=== PATIENT | female | born 1970 | race Caucasian/White ===

== ENCOUNTER 2022-04-19 10:44 | Day surgery (SDC) | payer BC, SELFPAY ==
[2022-04-19 11:16] VITALS: BMI 32.9
[2022-04-19 11:19] VITALS: BP 130/82; PULSE 88; RESP 16; TEMP 36.4; O2SAT 99
[2022-04-19] MEDS: LACTATED RINGERS 1000 ML 1,000 ML 100 ML IV ×2 (11:30→13:18)
[2022-04-19] MEDS: SODIUM CHLORIDE 0.9 % (FLUSH) 10 ML SYRINGE IVF (12:00)
--- NOTE | 2022-04-19 12:00 | CRLHL7_ITS ---
For Patients: As a result of the Cures Act, medical imaging exams and procedure reports are released immediately into your electronic medical record. You may view this report before your referring provider. If you have questions, please contact your health care provider. Indication: MPJ fusion, Hammertoe repair, Osteotomy Technique: One fluoroscopic image of the left foot. Fluoroscopic time 11.5 seconds. IMPRESSION: Fluoroscopic guidance for 2nd hammertoe correction, 1st MTP fusion and surgery to the 2nd metatarsal head. Dictated by Luis Conley MD @ 04/20/2022 8:33:18 AM (Electronically Signed)
[2022-04-19 12:01] LABS: SARS Antigen* negative (Negative)
[2022-04-19] MEDS: BUPIVACAINE 0.5% 30 ML INJECTION (12:59)
[2022-04-19] MEDS: CEFAZOLIN 2 GM INJ IVP (13:00)
[2022-04-19] MEDS: BUPIVACAINE 0.5% 30 ML 4 ML INJECTION (13:20)
[2022-04-19 14:56] VITALS: BP 138/110; PULSE 81; RESP 16; TEMP 36.2; O2SAT 97
--- NOTE | 2022-04-19 14:56 | P.GSOP_ITS ---
Operative Note Date of procedure: 04/19/22 Type of Procedure: 1. First MPJ fusion left 2. Cyndee osteotomy 2nd metatarsal left 3. Hammertoe correction 2nd digit left Procedure Description: Preoperative diagnosis: 1. Hallux rigidus left foot 2. Hammertoe 2nd digit foot left 3. Metatarsalgia 2nd left Postoperative diagnosis: 1. Hallux rigidus left foot 2. Hammertoe 2nd digit foot left 3. Metatarsalgia 2nd left Procedure: 1. First MPJ fusion left 2. Cyndee osteotomy 2nd metatarsal left 3. Hammertoe correction 2nd digit left After discussing the risks and benefits of the procedure, the patient signed informed consent.? The operative site was marked and the patient was brought to the operating room and placed on the operating table in supine position.? Care was taken to pad the patient's pressure points.?? The patient was then given sedation by anesthesia and 30 mL 0.5% Marcaine plain were injected into the left foot.?? The operative site was then prepped and draped in the usual sterile fashion.? A time-out was then performed. Left foot was exsanguinated and the ankle tourniquet inflated to 250 mm Hg. Linear incision was made over the 1st metatarsophalangeal joint left foot. Incision was carried down through skin subcutaneous tissues. Linear capsular incision made in the capsule and periosteum reflected away from the head of the 1st metatarsal base of proximal phalanx. Near complete erosion of the cartilage was noted to the 1st MPJ rongeur was used to remove bony spurring from around the joint. Guide pin was placed in the 1st metatarsal head an 18 mm Reamer was used to remove remaining cartilage and subchondral bone. Guide pin was removed and placed in the base of the proximal phalanx the corresponding 18 mm Reamer was used to remove remaining cartilage and subchondral bone. The area was thor oughly irrigated normal sterile saline. Opposing fusion surfaces were fenestrated with K-wires. Simulated weight-bearing performed with a instrument tray lid and the hallux positioned appropriately. This was stabilized with a K- wire and position checked with C-arm and found to be optimal. A guide pin followed by 3.0 cannulated headless screw was placed from distal medial to proximal lateral across the fusion site. Excellent compression noted across the fusion. Dorsal plate was then applied and fixated with five 3.0 mm locking screws and 1 3.0 mm nonlocking screw. Fusion site was remodeled with a rotary bur. Multiple C-arm images confirmed excellent position. Redundant and inflamed capsular tissue was excised and then closed with 3-0 Vicryl. Subcutaneous tissues reapproximated 4-0 Monocryl and skin closed with 4-0 Prolene. Linear incisions made over the 2nd metatarsophalangeal joint. Incision was carried down through skin subcutaneous tissues. Transverse incision was made t hrough the extensor tendon and joint capsule. Linear incision was made through the capsule dorsally and capsular tissue reflected away from the 2nd metatarsal head. Sagittal saw was then used to make a Cyndee osteotomy in the 2nd metatarsal head. Capital fragment was transposed proximally 3 mm and fixated with a 3.0 mm twist off screw. Excellent compression across the osteotomy noted. Dorsal ov erhang was removed with a rongeur. The wound thoroughly irrigated with normal sterile saline. The joint capsule was repaired with 4-0 Vicryl. Subcutaneous tissues reapproximated 4-0 Monocryl and the skin closed 4-0 Prolene. Linear incision made over the PIPJ 2nd digit. Incision was taken down through skin subcutaneous tissues. Transverse incision made through the extensor tendon and joint capsule. Medial and lateral collateral ligaments were released. Cartilage and subchondral bone was then removed with a oscillating saw from the proximal phalangeal head as well as from the base of the middle phalanx. An Arthrex Dynite hammertoe implant was then placed using standard technique. Excellent compression and fixation across the PIPJ fusion. Position was found to be excellent clinically and with C-arm. We thoroughly irrigated normal sterile saline. Excess extensor tendon was excised with tenotomy scissors and repaired with 4-0 Vicryl. Skin closed with 4-0 Prolene. ? Sterile dressings were then applied. A well-padded cam boot placed. Tourniquet was released and normal cap refill time returned to all digits left foot. The patient was then woken and transported to the recovery area in stable condition. The patient tolerated the procedure well. Both written and verbal postop instructions given. Weightbearing as tolerated to the heel in the cam boot crutches for transfers. She is given oxycodone for pain. She will follow up in clinic in 3 days time. Findings: Complications: None apparent Implants: Arthrex 1st MPJ fusion plate x1, Arthrex 3.0 cannulated headless screw x1, Arthrex 3.0 mm locking screws x5 and nonlocking screw x1, Arthrex Dynite hammertoe implant x1. Anesthesia: MAC and local Surgeon: Nishant Colon DPM Estimated blood loss (mL): 5 Condition: stable Disposition: same day
--- NOTE | 2022-04-19 15:00 | W.ANESCHARGE ---
Anesthesia Charges Start Date/Time Anesthesia Start Date: 04/19/22 Anesthesia Start Time: 12:51 Stop Date/Time Anesthesia Stop Time: 15:00 Summary Emergency: No
[2022-04-19 15:04] VITALS: BP 125/73; PULSE 81; RESP 16; O2SAT 97
[2022-04-19 15:28] VITALS: BP 138/75; PULSE 75; RESP 16; O2SAT 98
--- NOTE | 2022-04-19 15:44 | W.ANESCHARGE ---
Anesthesia Charges Start Date/Time Anesthesia Start Date: 04/19/22 Anesthesia Start Time: 12:51 Stop Date/Time Anesthesia Stop Date: 04/19/22 Anesthesia Stop Time: 15:00 Summary Emergency: No
== END 2022-04-19 16:07 | disposition home or self-care (01) ==
PROVIDERS: PCP Physician Assistant; Visit Provider Podiatrist
PROC: (CPT 28740; principal; 2022-04-19 12:00)
PROC: (CPT 28285; 2022-04-19 12:00)
DX: M20.22 Hallux rigidus, left foot (principal); M20.42 Other hammer toe(s) (acquired), left foot; M77.42 Metatarsalgia, left foot
CPT/HCPCS: 28750; 28285; 28308; 1462; 1480; 73620; 76000; 87426; 97116; 97161; A4580; C1713; J0690; J1100; J1885; J2250; J2405; J2704; J3010; J3490; J7120

== ENCOUNTER 2023-04-18 09:22 | Day surgery (SDC) | payer BC, SELFPAY ==
[2023-04-18] VITALS (7 sets, daily range): BP systolic 133–155; BP diastolic 81–106; PULSE 63–72; RESP 16; TEMP 36.3–36.6; O2SAT 93–98; BMI 36.6
[2023-04-18] MEDS: SODIUM CHLORIDE 0.9 % (FLUSH) 10 ML SYRINGE IVF (09:45)
[2023-04-18] MEDS: LACTATED RINGERS 1000 ML 1,000 ML 100 ML IV (09:45)
[2023-04-18] MEDS: BUPIVACAINE 0.5% 30 ML INJECTION (10:09)
--- NOTE | 2023-04-18 10:23 | SUR.OPER ---
PATIENT QUESTIONS ANSWERED SATISFACTORILY PREOPERATIVELY.? PATIENT BROUGHT TO OR #1 PER CART.? Patient positioned supine on OR #1 bed.? The perioperative?team supported arms bilaterally on arm boards.? Final approval of positioning by surgeon.
--- NOTE | 2023-04-18 10:30 | CRLHL7_ITS ---
For Patients: As a result of the Cures Act, medical imaging exams and procedure reports are released immediately into your electronic medical record. You may view this report before your referring provider. If you have questions, please contact your health care provider. INDICATION: Right 1st MTP fusion. Hammertoe correction. TECHNIQUE: Fluoroscopically guided intraoperative evaluation. FINDINGS: Three portable spot intraoperative images of the right 1st and 2nd toes. FINDINGS: 16.2 seconds fluoroscopy time utilized. Postsurgical change from hammertoe correction of the right 2nd toe with a fusion device bridging the interphalangeal joint of the right 2nd toe. There are also postsurgical changes from right 1st MTP joint fusion with a metallic plate and a metallic screw. IMPRESSION: Postsurgical changes as described. 16.2 seconds fluoroscopy time utilized. Dictated by Andre Denton MD @ 04/18/2023 6:03:31 PM (Electronically Signed)
--- NOTE | 2023-04-18 11:56 | W.ANESCHARGE ---
Anesthesia Charges Start Date/Time Anesthesia Start Date: 04/18/23 Anesthesia Start Time: 10:02 Stop Date/Time Anesthesia Stop Date: 04/18/23 Anesthesia Stop Time: 11:54
--- NOTE | 2023-04-18 12:01 | P.PCN_ITS ---
Procedure Note Date Seen: 04/18/23 Date of procedure: 04/18/23 Will [facility] bill your pro fee for this procedure?: No Pre-op diagnosis: 1. Hallux abducto valgus with bunion right 2. Hammertoe 2nd digit right Post-op diagnosis: same Procedure: 1. First MPJ fusion right foot 2. Hammertoe repair via PIPJ arthrodesis 2nd right Procedure Description: Hemostasis: Ankle tourniquet at 250 mm Hg Materials: 3.0 cannulated headless screw x1, Arthrex 1st MPJ fusion plate x1, 3.0 mm locking screws times 4 and 3.0 mm nonlocking screw x1, Dynite hammertoe implant x1 Complications: None apparent Indication for surgery: Patient has had ongoing pain to her great toe joint. She is concerned the 2nd toe is going to progress to a more worsened hammertoe similar to her other foot. She has elected surgical correction. Reviewed the procedure, recovery, expectations and potential complications. These include but are not limited to: Poor wound healing, infection, continued pain, possible need for future surgery, nonunion, delayed union, malunion, under correction, over correction, deep venous thrombosis, pulmonary embolism and possible . She understands risks written consent was obtained. Site marked. Procedure detail: Patient brought the operating room placed supine position on operating table. IV sedation was initiated local anesthetic injected into the right foot. She was prepped and draped in a sterile fashion. Standard time-out protocol followed. Right foot was exsanguinated the tourniquet inflated. A dorsal incision made over the 1st metatarsophalangeal joint. The incision was carried down through skin subcutaneous tissues. A linear capsular periosteal incision was made over the joint. These tissues reflected away from the 1st metatarsal head proximal phalangeal base. Loose osteophytic bone was noted to the base of the proximal phalanx. Significant loss of cartilage throughout the joint space. Bony spurring was resected with sagittal saw. Guide pin was placed the 1st metatarsal head an 18 mm Reamer was used to remove remaining cartilage and subchondral bone. Guide pin was removed and placed in the base of proximal phalanx and the corresponding 18 mm Reamer was used to remove the cartilage and subchondral bone. Wound was irrigated normal sterile saline. The opposing fusion surfaces were fenestrated with a K-wire. Simulating weight- bearing the great toe was positioned optimally and pinned with a K-wire. C-arm confirmed excellent position. 3.0 cannulated headless screw was then placed from distal medial to proximal lateral across the fusion. Excellent compression noted and excellent purchase of the screw. A dorsal fusion site was remodeled with a rotary bur and a 6 hole plate was applied dorsally. Three locking screws were placed distally and 1 locking screw placed proximally. An additional nonlocking screw placed proximally. All remaining K-wires removed. Rotary bur was used to remodel the 1st metatarsal head and proximal phalangeal base. Wound was thoroughly irrigated normal sterile saline. Joint capsule was debrided and repaired with 3-0 Vicryl. Subcutaneous tissues reapproximated with 4-0 Monocryl and skin closed with 4-0 Prolene. Linear incision was made over the PIPJ is toe right foot. Incision was carried down through skin subcutaneous tissues. Transverse incision made through the extensor tendon and joint capsule. The medial and lateral collateral ligaments were released. Oscillating saw used to resect the head of the proximal phalanx and base of the middle phalanx. A Dynite hammertoe implant was placed using standard technique. Excellent [id number] apposition stable. C-arm confirmed excellent position. Guide wire was advanced to deployed the tines of the implan t and then it was removed. Extensor tendon was repaired with 4-0 Vicryl. Skin repaired with 4-0 Prolene. Sterile dressing was applied. Tourniquet was released and normal capillary fill time returned all digits. She was placed in a well-padded cam boot and transferred from OR to same-day surgery with vital signs stable vascular status intact. To be discharged per same-day surgery. She was given oxycodone for pain. She is to be nonweightbearing. She has follow-up in 3 days. Anesthesia: MAC and local Estimated blood loss (mL): 2 Condition: stable Disposition: same day
[2023-04-18] MEDS: OxyCODONE/APAP 5-325 TABLET PO (12:41)
== END 2023-04-18 13:27 | disposition home or self-care (01) ==
PROVIDERS: PCP Physician Assistant; Visit Provider Podiatrist
PROC: (CPT 28740; principal; 2023-04-18 10:30)
DX: M20.11 Hallux valgus (acquired), right foot (principal); M21.611 Bunion of right foot; M20.41 Other hammer toe(s) (acquired), right foot
CPT/HCPCS: 28750; 28285; 01480; 73620; 76000; A4580; A9270; C1713; J0665; J2250; J2405; J2704; J2930; J3010; J7120

== ENCOUNTER 2023-06-21 09:16 | Outpatient (CLI) | payer BC, SELFPAY ==
--- OUTSIDE RECORDS SUMMARY | 2023-06-21 09:25 | XMS_ITS | Encounter Summary ---
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); Inflammatory arthritis Social History Tobacco Use Types Packs/Day Years Used Date Smoking Tobacco: Never Smokeless Tobacco: Never Alcohol Use Standard Drinks/Week Comments Yes 0 (1 standard drink = 0.6 oz pure alcohol) one beer or glass of wine weekly Sex and Gender Information Value Date Recorded Sex Assigned at Female 10/27/2020 8:46 AM CDT Gender Identity Female 10/27/2020 8:46 AM CDT Sexual Orientation Straight 10/27/2020 8: 46 AM CDT documented as of this encounter Plan of Treatment Upcoming Encounters Date Type Department Care Team (Late st Contact Info) Description 08/03/2023 3:00 PM CDT Appointment [facility] [address] [place], [place] [id number] Tracey Marino MD [facility] [place], [place] [id number] Scheduled Orders Name Type Priority Associated Diagnoses Orde r Schedule TP/Crea Ratio, Urine Lab Routine Other systemic lupus erythematosus with other organ involvement (HRC) 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) Inflammatory arthritis Expected: 03/31/2023, Expires: 06/29/2023 Urinalysis Routine, Micro/Culture if Pos: Clean Catch Lab Routine Other systemic lupus erythematosus with other organ involvement (HRC) 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) Inflammatory arthritis Expected: 03/31/2023, Expires: 06/29/2023 documented as of this encounter Procedures Procedure Name Priority Date/Time Associated Diagnosis Comments CBC AND DIFFERENTIAL PANEL Routine 03/31/2023 4:46 PM [facility] Other systemic lupus erythematosus with other organ involvement (HRC) 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) ANTI-DS DNA ANTIBODY (BRITANY ASSAY) Routine 03/31/2023 4:46 PM [facility] Inflammatory arthritis Other systemic lupus erythematosus with other organ involvement (HRC) COMPLETE BLOOD COUNT-W/DIFF Routine 03/31/2023 4:46 PM [facility] Other systemic lupus erythematosus with other organ involvement (HRC) 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) LIVER PANEL(HEPATIC FUNCTION PANEL) Routine 03/31/2023 4:46 PM [facility] Other systemic lupus erythematosus with other organ involvement (HRC) BASIC METABOLIC PANEL Routine 03/31/2023 4:46 PM [facility] Inflammatory arthritis Other systemic lupus erythematosus with other organ involvement (HRC) C4 COMPLEMENT Routine 03/31/2023 4:46 PM [facility] Inflammatory arthritis Other systemic lupus erythematosus with other organ involvement (HRC) C3 COMPLEMENT Routine 03/31/2023 4:46 PM [facility] Inflammatory arthritis Other systemic lupus erythematosus with other organ involvement (HRC) C-REACTIVE PROTEIN Routine 03/31/2023 4: 46 PM [facility] Inflammatory arthritis Other systemic lupus erythematosus with other organ involvement (HRC) ESR Routine 03/31/2023 4:46 PM [facility] Inflammatory arthritis Other systemic lupus erythematosus with other organ involvement (HRC) documented in this encounter Results * (ABNORMAL) Complete Blood Count-W/Diff (03/31/2023 4:46 PM [facility]) WBC 3.8 3.5 - 10.5 x10(9)/L 03/31/2023 4:50 PM [facility] RBC 3.93 3.90 - 5.03 x10(12)/L 03/31/2023 4:50 PM [facility] Hemoglobin 12.3 12.0 - 15.5 g/dL 03/31/2023 4:50 PM [facility] HCT 36.9 34.9 - 44.5 % 03/31/2023 4:50 PM [facility] MCV 93.9 80.0 - 100.0 fL 03/31/2023 4:50 PM [facility] MCH 31.3 27.6 - 33.3 pg 03/31/2023 4:50 PM [facility] MCHC 33.3 31.5 - 35.2 g/dL 03/31/2023 4:50 PM [facility] RDW 13.7 11.9 - 15.5 % 03/31/2023 4:50 PM [facility] Platelets 151 150 - 450 x10(9)/L 03/31/2023 4:50 PM [facility] Automated NRBC 0 <=0 /100 WBC 03/31/2023 4:50 PM [facility] Neutrophil Absolute 2.4 1.7 - 7.0 10(9)/L 03/31/2023 4:50 PM [facility] Lymphocyte Absolute 0.9(L) 1.0 - 4.8 10(9)/L 03/31/2023 4:50 PM [facility] Monocyte Absolute 0.4 0.2 - 0.9 10(9)/L 03/31/2023 4:50 PM [facility] Eosinophil Absolute 0.0 0.0 - 0.5 10(9)/L 03/31/2023 4:50 PM [facility] Basophil Absolute 0.1 0.0 - 0.3 10(9)/L 03/31/2023 4:50 PM [facility] Immature Granulocyte % 0.3 0.0 - 0.5 % 03/31/2023 4:50 PM [facility] Blood Venipuncture / Unknown 03/31/2023 4:46 PM [facility] 03/31/2023 4:46 PM [facility] Tracey Marino MD LAB_1 Performing Organization Address [facility] de Phone Number [facility] [address] [place] [phone], [facility] [phone] * C-Reactive Protein (03/31/2023 4:46 PM [facility]) Pathologist [facility] C-Reactive Protein <0.5 0.0 - 0.5 mg/dL 03/31/2023 6:54 PM [facility] Blood Venipuncture / Unknown 03/31/2023 4:46 PM [facility] 03/31/2023 4:46 PM [facility] Tracey Marino MD LAB_1 Performing Organization Address [facility] Phone Number [facility] [address] [place] [address], [facility] [phone] * ESR (03/31/2023 4:46 PM [facility]) Pathologist [facility] Sedimentation Rate 7 0 - 20 mm/hr 03/31/2023 5:29 PM [facility] Blood Venipuncture / Unknown 03/31/2023 4:46 PM [facility] 03/31/2023 4:46 PM [facility] Tracey Marino MD LAB_1 Performing Organization Address [facility] de Phone Number [facility] [address] [place] [phone], [facility] [phone] * Basic Metabolic Panel (03/31/2023 4:46 PM [facility]) Sodium 141 136 - 145 mmol/L 03/31/2023 6:54 PM [facility] Potassium 3.5 3.5 - 5.1 mmol/L 03/31/2023 6:54 PM [facility] Chloride 107 98 - 109 mmol/L 03/31/2023 6:54 PM [facility] CO2 27 20 - 29 mmol/L 03/31/2023 6:54 PM [facility] Anion Gap 7 7 - 16 mmol/L 03/31/2023 6:54 PM [facility] Calcium 8.6 8.4 - 10.4 mg/dL 03/31/2023 6:54 PM [facility] BUN 10 7 - 26 mg/dL 03/31/2023 6:54 PM [facility] Creatinine 0.90 0.55 - 1.02 mg/dL 03/31/2023 6:54 PM [facility] Glucose 93 70 - 100 mg/dL 03/31/2023 6:54 PM [facility] Comment:The given reference range is for the fasting state. Non-fasting reference range for glucose is 70 - 180 mg/dL. GFR, Estimated >60 >60 mL/min/1.7 3m2 03/31/2023 6:54 PM [facility] Hours Fasting 0.1 8 - 12 Hours 03/31/2023 6:54 PM [facility] Comment:Lab unable to obtain patient's fasting status at time of specimen collection. Blood Venipuncture / Unknown 03/31/2023 4:46 PM [facility] 03/31/2023 4:46 PM [facility] Tracey Marino MD LAB_1 [facility] [address] [place] [address], [facility] [phone] * C4 Complement (03/31/2023 4:46 PM [facility]) C4 Complement 23.0 15.0 - 57.0 mg/dL 03/31/2023 9:41 PM [facility] Blood Venipuncture / Unknown 03/31/2023 4:46 PM [facility] 03/31/2023 4:46 PM [facility] Tracey Marino MD LAB_1 Performing Organization Address [facility] Co de Phone Number [facility] [address] * C3 Complement (03/31/2023 4:46 PM [facility]) Pathologist [facility] C3 Complement 97 83 - 193 mg/dL 03/31/2023 9:41 PM [facility] Blood Venipuncture / Unknown 03/31/2023 4:46 PM [facility] 03/31/2023 4:46 PM [facility] Tracey Marino MD LAB_1 Performing Organization Address [facility] de Phone Number [facility] [address] * DNA Double Stranded Antibody (Britany) (03/31/2023 4:46 PM [facility]) [facility] Anti-dsDNA Ab (Britany Assay) <8.0 <8.0 IU/mL 04/07/2023 12:06 AM [facility] Blood Venipuncture / Unknown 03/31/2023 4:46 PM [facility] 03/31/2023 4:46 PM [facility] Narrative [facility] - 04/07/2023 12:06 AM [facility] Test(s) [id number] Ab by Britany(RDL) was developed and its performance characteristics determined by [facility]. It has not been cleared or approved by the Food and Drug Administration. Performed at: ??01 - [facility] [address] [place] [address] ??[id number] Director Of Staff Development: Puneet French MD, Phone: ??[phone] Tracey Marino MD LAB_1 Performing Organization Address [facility] Co de Phone Number [facility] [address] [address] [place] [address] * (ABNORMAL) Liver Panel(Hepatic Function Panel) (03/31/2023 4:46 PM [facility]ERTER) Pathologist [facility] Alkaline Phosphatase 117 40 - 150 U/L 03/31/2023 6:54 PM [facility] Bilirubin, Total 1.4(H) 0.2 - 1.2 mg/dL 03/31/2023 6:54 PM [facility] Bilirubin, Direct 0.5 0.0 - 0.5 mg/dL 03/31/2023 6:54 PM [facility] AST (SGOT) 37 10 - 40 U/L 03/31/2023 6:54 PM [facility] ALT (SGPT) 32 <=55 U/L 03/31/2023 6:54 PM [facility] Protein, Total 6.4 6.4 - 8.3 g/dL 03/31/2023 6:54 PM [facility] Albumin 3.7 3.5 - 5.0 g/dL 03/31/2023 6:54 PM [facility] Blood Venipuncture / Unknown 03/31/2023 4:46 PM [facility] 03/31/2023 4:46 PM [facility] Tracey Marino MD LAB_1 [facility] [address] [place] [address], [facility] [phone] documented in this encounter Visit Diagnoses Diagnosis Other systemic lupus erythematosus with other organ involvement (HRC) 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
--- OUTSIDE RECORDS SUMMARY | 2023-06-21 09:25 | XMS_ITS | Encounter Summary ---
Author Name Unknown Organization [facility] Address [address], [place] [address] Care Team Providers Care Financial Reporting Advisor Name Role Phone Joyce Wilson MD Primary Care Provider [phone] Encounter Details Date Type Department Care Team (Late Contact Info) Description 12/02/2022 Notes/Orders [facility] [address] [place] [address] Tracey Marino MD [address] [place], [place] [address] Other systemic lupus erythematosus with other organ involvement (HRC) (Primary Dx) Social History Tobacco Use Types Packs/Day Years [...] Encounters Date Type Department Care Team (Late Contact Info) Description 08/03/2023 3:00 PM CDT Appointment [facility] [address] [place] [address] Thottam, Tracey E, MD [address] [place] [address] documented as of this encounter Results * (ABNORMAL) Liver Panel(Hepatic Function Panel) (03/31/2023 4:46 PM [facility]TER TENDER JELLY) Alkaline Phosphatase 117 40 - 150 U/L 03/31/2023 6:[address] [facility] Bilirubin, Total 1.4(H) 0.2 - 1.2 mg/dL 03/31/2023 6:[address] [facility] Bilirubin, Direct 0.5 0.0 - 0.5 mg/dL 03/31/2023 6:[address] [facility] AST (SGOT) 37 10 - 40 U/L 03/31/2023 6:[address] [facility] ALT (SGPT) 32 <=55 U/L 03/31/2023 6:[address] [facility] Protein, Total 6.4 6.4 - 8.3 g/dL 03/31/2023 6:[address] [facility] Albumin 3.7 3.5 - 5.0 g/dL 03/31/2023 6:[address] [facility] Blood Venipuncture / Unknown 03/31/2023 4:46 PM [facility] T[employer]ER JELLY 03/31/2023 4:46 PM [facility] T[employer] JELLY Tracey Marino MD LAB_1 [facility] [address] [place] [address], [facility] [phone] documented in this encounter Visit Diagnoses Diagnosis Other systemic lupus erythematosus with other organ involvement (HRC)- Primary documented in this encounter Care Teams Financial Reporting Advisor Relationship Specialty Start Date End Date Joyce Wilson MD [address] [place] [address] ANTWAN GERARDO [address] PCP - General 06/08/13 documented as of this encounter
--- OUTSIDE RECORDS SUMMARY | 2023-06-21 09:25 | XMS_ITS | Encounter Summary ---
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) Social History Tobacco Use Types Packs/Day Years [...] Info) Description 08/03/2023 3:00 PM CDT Appointment [facility] [address] [place], [place] [phone] Tracey Marino MD [address] [place] [phone] documented as of this encounter Procedures Procedure Name Priority Date/Time Associated Diagnosis Comments CBC AND DIFFERENTIAL PANEL Routine 11/25/2022 3:47 PM CDT Other systemic lupus erythematosus with other organ involvement (HRC) 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) CREATININE / GFR Routine 11/25/2022 3:47 PM CDT Other systemic lupus erythematosus with other organ involvement (HRC) COMPLETE BLOOD COUNT-W/DIFF Routine 11/25/2022 3:47 PM CDT Other systemic lupus erythematosus with other organ involvement (HRC) 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) ALT (SGPT) Routine 11/25/2022 3:47 PM CDT Other systemic lupus erythematosus with other organ involvement (HRC) 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) AST Routine 11/25/2022 3:47 PM CDT Other systemic lupus erythematosus with other organ involvement (HRC) 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) documented in this encounter Results * (ABNORMAL) Complete Blood Count-W/Diff (11/25/2022 3:47 PM CDT) WBC 5.1 3.5 - 10.5 x10(9)/L 11/25/2022 3:50 PM CDT [facility] RBC 3.86(L) 3.90 - 5.03 x10(12)/L 11/25/2022 3:50 PM CDT [facility] Hemoglobin 12.4 12.0 - 15.5 g/dL 11/25/2022 3:50 PM CDT [facility] HCT 37.7 34.9 - 44.5 % 11/25/2022 3:50 PM CDT [facility] MCV 97.7 80.0 - 100.0 fL 11/25/2022 3:50 PM CDT [facility] MCH 32.1 27.6 - 33.3 pg 11/25/2022 3:50 PM CDT [facility] MCHC 32.9 31.5 - 35.2 g/dL 11/25/2022 3:50 PM CDT [facility] RDW 13.9 11.9 - 15.5 % 11/25/2022 3:50 PM T [facility] Platelets 121(L) 150 - 450 x10(9)/L 11/25/2022 3:50 PM [facility] Automated NRBC 0 <=0 /100 WBC 11/25/2022 3:50 PM [facility] Neutrophil Absolute 4.0 1.7 - 7.0 10(9)/L 11/25/2022 3:50 PM T [facility] Lymphocyte Absolute 0.6(L) 1.0 - 4.8 10(9)/L 11/25/2022 3:50 PM T [facility] Monocyte Absolute 0.4 0.2 - 0.9 10(9)/L 11/25/2022 3:50 PM T [facility] Eosinophil Absolute 0.0 0.0 - 0.5 10(9)/L 11/25/2022 3:50 PM [facility] Basophil Absolute 0.0 0.0 - 0.3 10(9)/L 11/25/2022 3:50 PM [facility] Immature Granulocyte % 0.2 0.0 - 0.5 % 11/25/2022 3:50 PM [facility] Blood Venipuncture / Unknown 11/25/2022 3:47 PM CDT 11/25/2022 3:47 PM CDT Tracey Marino MD LAB_1 [facility] [address] [place] [address], [facility] [phone] * Creatinine / GFR (every 3 months) (11/25/2022 3:47 PM CDT) Creatinine 1.00 0.55 - 1.02 mg/dL 11/25/2022 6:15 PM CDT [facility] GFR, Estimated >60 >60 mL/min/1.7 3m2 11/25/2022 6:15 PM T [facility] Blood Venipuncture / Unknown 11/25/2022 3:47 PM CDT 11/25/2022 3:47 PM CDT Tracey Marino MD LAB_1 Performing Organization Address [facility] de Phone Number [facility] [address] [place] [phone], [facility] [phone] * (ABNORMAL) AST (every 3 months) (11/25/2022 3:47 PM CDT) AST (SGOT) 43(H) 10 - 40 U/L 11/25/2022 6:15 PM CDT [facility] Blood Venipuncture / Unknown 11/25/2022 3:47 PM CDT 11/25/2022 3:47 PM CDT Tracey Marino MD LAB_1 Performing Organization Address [facility] de Phone Number [facility] [id number] [place] [phone], [facility] [phone] * ALT (SGPT) (every 3 months) (11/25/2022 3:47 PM CDT) ALT (SGPT) 36 <=55 U/L 11/25/2022 6:15 PM CDT [facility] Blood Venipuncture / Unknown 11/25/2022 3:47 PM CDT 11/25/2022 3:47 PM CDT Tracey Marino MD LAB_1 Performing Organization Address 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
--- OUTSIDE RECORDS SUMMARY | 2023-06-21 09:25 | XMS_ITS | Encounter Summary ---
Author Name Unknown Organization [facility] Address [address], [place] [address] Care Team Providers Care Life Skills Consultant Name Role Phone Joyce Wilson MD Primary Care Provider [phone] Reason for Visit * Reason Comments Refill Encounter Details Date Type Department Care Team (Late st Contact Info) Description 03/14/2023 Refill [facility] [address] [place], [place] [address] Tracey Brown MD [address] [place] [address] Refill Social History Tobacco Use Types Packs/Day Years [...] AM CDT documented as of this encounter Nursing Notes * Sirena Worrell RN - 03/14/2023 11:49 AM CST LV: 11/25/22 [place]: 03/31/23 Lab Results Component Value Date WBC 5.1 11/25/2022 RBC 3.86 (L) 11/25/2022 Hemoglobin 12.4 11/25/2022 HCT 37.7 11/25/2022 MCV 97.7 11/25/2022 RDW 13.9 11/25/2022 Platelets 121 (L) 11/25/2022 Lab Results Component Value Date ALT (SGPT) 36 11/25/2022 Lab Results Component Value Date Creatinine 1.00 11/25/2022 Renewed medication per medication refill standing order. Requested Prescriptions Signed Prescriptions Disp Refills leflunomide (ARAVA) 20 MG tablet 30 Tablet 0 Sig: TAKE ONE TABLET BY MOUTH EVERY DAY Authorizing Provider: TRACEY BROWN Ordering User: SIRENA WORRELL UCT SAFETY TESTER documented in this encounter Plan of Treatment Upcoming Encounters Date Type Department Care Team (Late st Contact Info) Description 08/03/2023 3:00 PM CDT Appointment [facility] [address] [place] [address] Tracey Brown MD [address] [place] [address] documented as of this encounter Visit Diagnoses Diagnosis Inflammatory arthritis Unspecified inflammatory polyarthropathy Other systemic lupus erythematosus with other organ involvement (HRC) documented in this encounter Care Teams Life Skills Consultant Relationship Specialty Start Date End Date Joyce Wilson MD [address] [place] [address] PCP - General 06/08/13 documented as of this encounter
--- OUTSIDE RECORDS SUMMARY | 2023-06-21 09:25 | XMS_ITS | Encounter Summary ---
Author Name Unknown Organization [facility] Address [address], [place] [address] Care Team Providers Care Project Management Manager Name Role Phone Joyce Wilson MD Primary Care Provider [phone] Reason for Visit * Reason Comments Refill Encounter Details Date Type Department Care Team (Late st Contact Info) Description 05/02/2023 Refill [facility] [address] [place], [place] [phone] Tracey Brown MD [address] [place] [address] Refill Social History Tobacco Use Types [...] as of this encounter Nursing Notes * Ree Martin RN - 05/03/2023 4:11 PM CST Last visit: 03/31/23 Future visit: 08/02/22 Lab Results Component Value Date Hemoglobin 12.3 03/31/2023 Lab Results Component Value Date Creatinine 0.90 03/31/2023 Renewed medication per medication refill standing order. Requested Prescriptions Signed Prescriptions Disp Refills celecoxib (CELEBREX) 100 MG capsule 60 Capsule 1 Sig: TAKE ONE CAPSULE BY MOUTH TWICE A DAY Authorizing Provider: TRACEY BROWN Ordering User: REE MARTIN ICAL THERAPIST documented in this encounter Plan of Treatment Upcoming Encounters Date Type Department Care Team (Late st Contact Info) Description 08/03/2023 3:00 PM CDT Appointment [facility] [address] [place], [place] [phone] Tracey Brown MD [address] [place] [phone] documented as of this encounter Visit Diagnoses Not on filedocumented in this encounter Care Teams Project Management Manager Relationship Specialty Start Date End Date Joyce Wilson MD [address] [place] [address] PCP - General 06/08/13 documented as of this encounter
--- OUTSIDE RECORDS SUMMARY | 2023-06-21 09:25 | XMS_ITS | Clinical Summary ---
Author Name Unknown Organization [facility] Address [address], [place] [address] Care Team Providers Care Power Electronics Research Engineer Name Role Phone Joyce Wilson MD Primary Care Provider [phone] Source Comments You are receiving this document as you are listed as the primary care provider,follow-up provider, or the patient has been referred to you for consultation.This is in compliance with the Medicare and[facility] EHR Incentive Program,which states Providers who transition their patient to another setting of careor provider of care or refers their patient to another provider of care shouldprovide summary care record for each transition of care or referral. [facility] Allergies No known active allergies Medications Medication Sig Dispensed Refills Start Date End Date Status Carboxymethylcellulos e Sodium (REFRESH LIQUIGEL OP) Place 1 drop into both eyes 4 times daily as needed (Use 3-4 times daily). 08/16/2013 Active levothyroxine (AKA SYNTHROID) 150 MCG tablet Take 1 Tablet (150 mcg) by mouth daily. 08/16/2013 Active nystatin (MYCOSTATIN) 274716 UNIT/GM powderIndications:Carlos h and nonspecific skin eruption Apply to affected areas up to 3 times daily until healing is complete. 30 g 3 07/28/2017 Active triamcinolone (KENALOG) 0.1 % lotion Apply topically. Active VITAMIN D, CHOLECALCIFEROL, OR Activ e calcium citrate-vitamin D (CITRACAL+D) 315-200 MG-UNIT tablet Take 1 Tablet by mouth two times a day. 01/22/2019 Active ketoconazole (NIZORAL) 2 % cream Apply topically two times daily as needed. For flares, to the fold areas. 60 g 11 04/30/2019 Active omeprazole (PRILOSEC) 20 MG capsule Take 1 Capsule (20 mg) by mouth. 05/19/2021 Active DULoxetine (CYMBALTA) 20 MG capsule Take 1 Capsule (20 mg) by mouth daily. 30 Capsule 02/25/2022 Active predniSONE (DELTASONE) 1 MG tablet Take 3 Tablets (3 mg) by mouth daily. 270 Tablet 1 11/25/2022 Active oxyBUTYnin (DITROPANXL) 10 MG 24 hour release tablet Take 1 Tablet (10 mg) by mouth daily. Active pregabalin (LYRICA) 100 MG capsule Take 1 Capsule (100 mg) by mouth two times a day. 200 mg pm 03/23/2023 Active hydroxychloroquine (PLAQUENIL) 200 MG tablet Take 1 Tablet (200 mg) by mouth two times a day. 180 Tablet 1 03/31/2023 Active leflunomide (ARAVA) 20 MG tabletIndications:Inf lammatory arthritis,Other systemic lupus erythematosus with other organ involvement (HRC) Take 1 Tablet (20 mg) by mouth daily. 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 Rash and nonspecific skin eruption 07/28/2017 Primary insomnia 07/28/2017 Pain of left hip joint 07/01/2016 History of developmental dysplasia of the hip Iron deficiency anemia 02/27/2016 Elevated transaminase level 02/27/2016 Snoring 02/19/2016 High risk medication use 02/19/2016 Myofascial pain 06/14/2014 Encounter for long-term (current) use of medicat ions 11/29/2013 Overview: Encounter for long-term (current) use of other medications Systemic lupus erythematosus 08/16/2013 Hypothyroidism 08/16/2013 Overview: 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 08/16 Overview: Encounter for long-term (current) use of steroids GERD (gastroesophageal reflux disease) 4 Encounters Date Type Department Care Team Description 05/02/2023 Refill [facility] [address] [place] [id number] Tracey Marino MD Refill 03/31/2023 4:40 PM CUSTOMER RELATIONS ADVISOR Lab Visit [facility] [address] [place] [id number] Other systemic lupus erythematosus with other organ involvement (HRC); 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); Inflammatory arthritis 03/31/2023 4:00 PM CUSTOMER RELATIONS ADVISOR Office Visit [facility] [address] [place] [id number] Tracey Marino MD Other systemic lupus erythematosus with other organ involvement (HRC) (Primary Dx); Need for vaccination; Inflammatory arthritis; Osteoarthritis of multiple joints, unspecified osteoarthritis type; Fibromyalgia; 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; 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) from Last 3 Months Immunizations Name Administration Dates Next Due DTaP 12/16/2005 Flu Vac (3+ yrs) 02/08/2020, 3,03/24/2010,2007,04/13/2007 Flu Vac Preserv Free (3+yrs) 04/02/2008 HepA Adult (19+ yrs) 04/02/2008,05/11/2007 Influenza ([place] Only) (Flul aval Quad 0.5, 3+ yrs) 02/07/2020,02/11/2016 Influenza (Flucelvax), Prese rv Free QIV 03/31/2023 Influenza IIV4 (Quadrivalent ) 0.5mL (22749) 01/22/2019,01/27/2017,02/04/2016,2014 Influenza, Unspecified Formulation 02/19,02/08/2020,04/21/2013,2009 Moderna Monovalent 12+ 12/19/2020,07/05/2020,09/2020 PPSV23 (Pneumovax) 04/29/2010 Rho(D) - IG, IM 07/12/1995 Td, Preservative Free 08/09/2016 Tdap 12/16/2005 Social History Tobacco Use Types Packs/Day Years [...] Orientation Straight 10/27/2020 8: 46 AM CDT Last Filed Vital Signs Vital Sign Reading Time Taken Comments Blood Pressure 136/79 03/31/2023 3:50 PM CUSTOMER RELATIONS ADVISOR Pulse 74 03/31/2023 3:50 PM CUSTOMER RELATIONS ADVISOR Temperature 36.6 ??C (97.8 ??F) 10/29/2020 3:46 PM CD T Respiratory Rate 20 06/14/2014 9:40 AM CUSTOMER RELATIONS ADVISOR Oxygen Saturation - - Inhaled Oxygen Concentration - - Weight 93 kg (205 lb) 03/31/2023 3:50 PM CUSTOMER RELATIONS ADVISOR Height - - Body Mass Index - - Plan of Treatment Upcoming Encounters Date Type Department Care Team (Late st Contact Info) Description 08/03/2023 3:00 PM CDT Appointment [facility] [address] [place], [place] [phone] Tracey Marino MD [facility] [place], [place] [phone] Health Maintenance Due Date Last Done Comments Cervical Cancer Screening Due 1970 Colon Cancer Screening Plan Due 1970 Hep C Screening (Preventive Services) 1970 HIV Screening (Preventive Services) 1986 Adult Preventive Visit 1988 HepB (1) 1989 Cholesterol 12/04/2015 Mammogram 11/29/2019 11/28/2018 COVID-19 Vaccine ( season) 2022 02/19/2022, 10/19/2021, 06/26/2021, Additional history exists DTaP/Tdap/Td (4 - Tdap) 08/09/2026 08/10/19 17, 12/16/2005, 12/16/2005 HepA Completed 04/02/2008, 05/11/2007 Pneumococcal Aged Out 04/29/2010 No longer eligi ble based on patient's age to complete this topic Zoster/Shingles Completed 09/09/2021, 04/29/2021 Influenza Completed 03/31/2023, 01/31, 02/19/2021, Additional history exists Hib Aged Out No longer eligi ble based on patient's age to complete this topic IPV (Polio) Aged Out No longer eligi ble based on patient's age to complete this topic MCV4 Aged Out No longer eligi ble based on patient's age to complete this topic Procedures Procedure Name Priority Date/Time Associated Diagnosis Comments COMPLETE BLOOD COUNT-W/DIFF Routine 03/31/2023 4:46 PM CUSTOMER RELATIONS ADVISOR Other systemic lupus erythematosus with other organ involvement (HRC) 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) C-REACTIVE PROTEIN Routine 03/31/2023 4: 46 PM CUSTOMER RELATIONS ADVISOR Inflammatory arthritis Other systemic lupus erythematosus with other organ involvement (HRC) ESR Routine 03/31/2023 4:46 PM CUSTOMER RELATIONS ADVISOR Inflammatory arthritis Other systemic lupus erythematosus with other organ involvement (HRC) BASIC METABOLIC PANEL Routine 03/31/2023 4:46 PM CUSTOMER RELATIONS ADVISOR Inflammatory arthritis Other systemic lupus erythematosus with other organ involvement (HRC) C4 COMPLEMENT Routine 03/31/2023 4:46 PM CUSTOMER RELATIONS ADVISOR Inflammatory arthritis Other systemic lupus erythematosus with other organ involvement (HRC) C3 COMPLEMENT Routine 03/31/2023 4:46 PM CUSTOMER RELATIONS ADVISOR Inflammatory arthritis Other systemic lupus erythematosus with other organ involvement (HRC) ANTI-DS DNA ANTIBODY (BRITANY ASSAY) Routine 03/31/2023 4:46 PM CUSTOMER RELATIONS ADVISOR Inflammatory arthritis Other systemic lupus erythematosus with other organ involvement (HRC) LIVER PANEL(HEPATIC FUNCTION PANEL) Routine 03/31/2023 4:46 PM CUSTOMER RELATIONS ADVISOR Other systemic lupus erythematosus with other organ involvement (HRC) CBC AND DIFFERENTIAL PANEL Routine 03/31/2023 4:46 PM CUSTOMER RELATIONS ADVISOR Other systemic lupus erythematosus with other organ involvement (HRC) 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) RADEX FNGR MINIMUM 2 VIEWS 11/08/1995 12:00 AM CDT Finger Injury Nos Fx Phalanx, Hand Nos-Close from Last 3 Months or Most Recently Relevant to Health Maintenance Results * DNA Double Stranded Antibody (Britany) (03/31/2023 4:46 PM CUSTOMER RELATIONS ADVISOR) Pathologist [facility] Anti-dsDNA Ab (Britany Assay) <8.0 <8.0 IU/mL 04/07/2023 12:06 AM CUSTOMER RELATIONS ADVISOR [facility] Blood Venipuncture / Unknown 03/31/2023 4:46 PM CUSTOMER RELATIONS ADVISOR 03/31/2023 4:46 PM CUSTOMER RELATIONS ADVISOR Narrative [facility] - 04/07/2023 12:06 AM CUSTOMER RELATIONS ADVISOR Test(s) [id number] Ab by Briatny(RDL) was developed and its performance characteristics determined by [facility]. It has not been cleared or approved by the Food and Drug Administration. Performed at: ??01 - [facility] [address] [place] [address] ??[id number] Agency Sales Representative: Puneet French MD, Phone: ??[phone] Tracey Marino MD LAB_1 [facility] [address] [address] [place] [address] * (ABNORMAL) Complete Blood Count-W/Diff (03/31/2023 4:46 PM CUSTOMER RELATIONS ADVISOR) Pathologist [facility] WBC 3.8 3.5 - 10.5 x10(9)/L 03/31/2023 4:50 PM CUSTOMER RELATIONS ADVISOR [facility] RBC 3.93 3.90 - 5.03 x10(12)/L 03/31/2023 4:50 PM [facility] Hemoglobin 12.3 12.0 - 15.5 g/dL 03/31/2023 4:50 PM [facility] HCT 36.9 34.9 - 44.5 % 03/31/2023 4:50 PM [facility] MCV 93.9 80.0 - 100.0 fL 03/31/2023 4:50 PM [facility] MCH 31.3 27.6 - 33.3 pg 03/31/2023 4:50 PM [facility] MCHC 33.3 31.5 - 35.2 g/dL 03/31/2023 4:50 PM [facility] RDW 13.7 11.9 - 15.5 % 03/31/2023 4:50 PM [facility] Platelets 151 150 - 450 x10(9)/L 03/31/2023 4:50 PM [facility] Automated NRBC 0 <=0 /100 WBC 03/31/2023 4:50 PM [facility] Neutrophil Absolute 2.4 1.7 - 7.0 10(9)/L 03/31/2023 4:50 PM [facility] Lymphocyte Absolute 0.9(L) 1.0 - 4.8 10(9)/L 03/31/2023 4:50 PM [facility] Monocyte Absolute 0.4 0.2 - 0.9 10(9)/L 03/31/2023 4:50 PM [facility] Eosinophil Absolute 0.0 0.0 - 0.5 10(9)/L 03/31/2023 4:50 PM [facility] Basophil Absolute 0.1 0.0 - 0.3 10(9)/L 03/31/2023 4:50 PM [facility] Immature Granulocyte % 0.3 0.0 - 0.5 % 03/31/2023 4:50 PM [facility] Blood Venipuncture / Unknown 03/31/2023 4:46 PM CUSTOMER RELATIONS ADVISOR 03/31/2023 4:46 PM [facility] Tracey Marino MD LAB_1 [facility] [address] [place] [address], [facility] [phone] * (ABNORMAL) Liver Panel(Hepatic Function Panel) (03/31/2023 4:46 PM CUSTOMER RELATIONS ADVISOR) [facility] Alkaline Phosphatase 117 40 - 150 U/L 03/31/2023 6:54 PM [facility] Bilirubin, Total 1.4(H) 0.2 - 1.2 mg/dL 03/31/2023 6:54 PM [facility] Bilirubin, Direct 0.5 0.0 - 0.5 mg/dL 03/31/2023 6:54 PM [facility] AST (SGOT) 37 10 - 40 U/L 03/31/2023 6:54 PM [facility] ALT (SGPT) 32 <=55 U/L 03/31/2023 6:54 PM [facility] Protein, Total 6.4 6.4 - 8.3 g/dL 03/31/2023 6:54 PM [facility] Albumin 3.7 3.5 - 5.0 g/dL 03/31/2023 6:54 PM [facility] Blood Venipuncture / Unknown 03/31/2023 4:46 PM CUSTOMER RELATIONS ADVISOR 03/31/2023 4:46 PM [facility] Tracey Marino MD LAB_1 [facility] [address] [place] [address], [facility] [phone] * Basic Metabolic Panel (03/31/2023 4:46 PM CUSTOMER RELATIONS ADVISOR) [facility] Sodium 141 136 - 145 mmol/L 03/31/2023 6:54 PM [facility] Potassium 3.5 3.5 - 5.1 mmol/L 03/31/2023 6:54 PM [facility] Chloride 107 98 - 109 mmol/L 03/31/2023 6:54 PM [facility] CO2 27 20 - 29 mmol/L 03/31/2023 6:54 PM [facility] Anion Gap 7 7 - 16 mmol/L 03/31/2023 6:54 PM [facility] Calcium 8.6 8.4 - 10.4 mg/dL 03/31/2023 6:54 PM [facility] BUN 10 7 - 26 mg/dL 03/31/2023 6:54 PM [facility] Creatinine 0.90 0.55 - 1.02 mg/dL 03/31/2023 6:54 PM [facility] Glucose 93 70 - 100 mg/dL 03/31/2023 6:54 PM [facility] Comment:The given reference range is for the fasting state. Non-fasting reference range for glucose is 70 - 180 mg/dL. GFR, Estimated >60 >60 mL/min/1.7 3m2 03/31/2023 6:54 PM [facility] Hours Fasting 0.1 8 - 12 Hours 03/31/2023 6:54 PM [facility] Comment:Lab unable to obtain patient's fasting status at time of specimen collection. Blood Venipuncture / Unknown 03/31/2023 4:46 PM CUSTOMER RELATIONS ADVISOR 03/31/2023 4:46 PM CUSTOMER RELATIONS ADVISOR Tracey Marino MD LAB_1 [facility] [address] [place] [address] [phone] * C4 Complement (03/31/2023 4:46 PM CUSTOMER RELATIONS ADVISOR) C4 Complement 23.0 15.0 - 57.0 mg/dL 03/31/2023 9:41 PM CUSTOMER RELATIONS ADVISOR [facility] Blood Venipuncture / Unknown 03/31/2023 4:46 PM CUSTOMER RELATIONS ADVISOR 03/31/2023 4:46 PM CUSTOMER RELATIONS ADVISOR Tracey Marino MD LAB_1 [facility] [address] [place], [place] [id number] [place] [address] * C3 Complement (03/31/2023 4:46 PM CUSTOMER RELATIONS ADVISOR) C3 Complement 97 83 - 193 mg/dL 03/31/2023 9:41 PM CUSTOMER RELATIONS ADVISOR [facility] Blood Venipuncture / Unknown 03/31/2023 4:46 PM CUSTOMER RELATIONS ADVISOR 03/31/2023 4:46 PM CUSTOMER RELATIONS ADVISOR Tracey Marino MD LAB_1 [facility] [address] [place], [place] [address] * C-Reactive Protein (03/31/2023 4:46 PM CUSTOMER RELATIONS ADVISOR) C-Reactive Protein <0.5 0.0 - 0.5 mg/dL 03/31/2023 6:54 PM CUSTOMER RELATIONS ADVISOR [facility] Blood Venipuncture / Unknown 03/31/2023 4:46 PM CUSTOMER RELATIONS ADVISOR 03/31/2023 4:46 PM CUSTOMER RELATIONS ADVISOR Tracey Marino MD LAB_1 Performing Organization Address [facility] Co de Phone Number [facility] [address] [place] [address], [facility] [phone] * ESR (03/31/2023 4:46 PM CUSTOMER RELATIONS ADVISOR) Sedimentation Rate 7 0 - 20 mm/hr 03/31/2023 5:29 PM CUSTOMER RELATIONS ADVISOR [facility] Blood Venipuncture / Unknown 03/31/2023 4:46 PM CUSTOMER RELATIONS ADVISOR 03/31/2023 4:46 PM CUSTOMER RELATIONS ADVISOR Tracey Marino MD LAB_1 Performing Organization Address City/[facility] Co de Phone Number [facility] [address] [place] [address], [facility] [phone] from Last 3 Months or Most Recently Relevant to Health Maintenance Care Teams Power Electronics Research Engineer Relationship Specialty Start Date End Date Joyce Wilson MD [address] [place] [address] [place] [address] PCP - General 06/08/13
--- OUTSIDE RECORDS SUMMARY | 2023-06-21 09:25 | XMS_ITS | Encounter Summary ---
Author Name Unknown Organization [facility] Address [address] [address] Care Team Providers Care Lean Engineer Name Role Phone Joyce Wilson MD Primary Care Provider [phone] Reason for Visit * Reason Comments Follow-up Encounter Details Date Type Department Care Team (Late st Contact Info) Description 03/31/2023 4:00 PM STAVE LOG CUT OFF SAW OPERATOR Office Visit [facility] [address] [place] [address] Tracey Marino MD [address] [place] [id number] Other systemic lupus erythematosus with other organ involvement (HRC) (Primary Dx); Need for vaccination; Inflammatory arthritis; Osteoarthritis of multiple joints, unspecified osteoarthritis type; Fibromyalgia; correction current use of systemic steroids; 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) Social [...] AM CDT documented as of this encounter Last Filed Vital Signs Vital Sign Reading Time Taken Comments Blood Pressure 136/79 03/31/2023 3:50 PM STAVE LOG CUT OFF SAW OPERATOR Pulse 74 03/31/2023 3:50 PM STAVE LOG CUT OFF SAW OPERATOR Temperature - - Respiratory Rate - - Oxygen Saturation - - Inhaled Oxygen Concentration - - Weight 93 kg (205 lb) 03/31/2023 3:50 PM STAVE LOG CUT OFF SAW OPERATOR Height - - Body Mass Index - - documented in this encounter Patient Instructions * Patient Instructions* Tracey Marino MD - 03/31/2023 4:00 PM STAVE LOG CUT OFF SAW OPERATOR Images from the original note were not included. You continue to have active fibromyalgia Try the celebrex 100 mg twice a day, if no improvement let me know! 2 weeks Continue hydroxycholorquine 400 mg daily Continue leflunomide 1 tablet daily Prednisone taper, if your labs are stable we can go back to 3 mg once you finish the taper, but if not, stay at 5 mg Continue water aerobics and PT Continue lyrica Blood work today Follow up in 12-14 weeks Fibromyalgia What is it? Fibromyalgia is a syndrome where the main symptoms are fatigue and widespread musculoskeletal pain,not explained by other causes. Typically, the pain is on both sides of the body and above and belowthe waist. If the pain is more localized to a particular area of the muscles and not all over, it is called myofascial pain. The pain is usually in the muscles, but can also be in the joint areas, where the muscles attach. Visible swelling and heat in the joint areas are not features of fibromyalgia (although sometimes they may feel that way to you). Many patients with fibromyalgia will have at least 11 of 18 of the tender points noted below. The common tender points of fibromyalgia include neck, upper back, sternal area, elbows, buttock, side of the hips, and knees. Other symptoms commonly found in patients with fibromyalgia may include: Disturbed and poor quality sleep - people with fibromyalgia often do not get good ???restorative?? sleep, and may also have problems with leg cramps and restless legs. Depression, anxiety and other mood changes Numbness and tingling in extremities, called paresthesias (other causes such as neurological diseases may need to be ruled out) Irritable bowel syndrome - constipation, diarrhea, bloating, abdominal cramping, often exacerbated by stress, and not explained by other bowel disorders. Irritable bladder Dry eyes and mouth Headaches and facial pain - pain at the temporomandibular joint (TMJ) is common, as are tension andother types of headaches. Heightened sensitivity - some patients will have an increased sensitivity to bright lights, loud noises, odors such as perfumes, and even light touch. Difficulty concentrating Chest pain, usually from the rib cage and muscles. Dizziness Painful menstrual cramps Cause The exact cause of fibromyalgia is as yet not known. However, some research suggests that up to half of cases of fibromyalgia may be associated with small fiber neuropathy. This is not too surprising, since many of the medications used for fibromyalgia are also used for neuropathy. Many other factors probably play a role. Recent research has suggested that genetics may contribute. Just as there are people whose genes result in ???strong?? bones or ???weak?? bones, there are people who have abnormalities in their pain processing (the way nerves respond to pain) which may predispose to developing fibromyalgia. External factors also can contribute to developing fibromyalgia. For example, if you become depressed, the depression can result in increased musculoskeletal pain. When the depression is treated, the pain can improve. Sometimes the chronic pain of fibromyalgia can increase the likelihood of developing depression, and in that case it is equally important to treat the depression. Poor sleep for any extended period of time is another factor in the development of fibromyalgia. Healthy people who are sleep deprived often begin to ???ache?? in their muscles. This can then result in a vicious cycle where pain further disturbs sleep which results in even more pain. Many factors like stress, depression, and lack of exercise can affect sleep quality. Frequent ???hot flashes?? during menopause can significantly affect sleep. Sleep can also be affected by poor ???sleep hygiene?? . For example, activities like reading in bed, eating in bed, watching TV in bed, etc., can result in ???confusing?? the body about the purpose of being in bed. Avoiding such activities in bed can allow for better sleep quality. Regular aerobic exercise may be preventative to developing fibromyalgia because it improves sleep and counteracts stress and depression. Along the same lines, lack of aerobic exercise can contribute to the development of fibromyalgia. Other conditions which cause pain including rheumatoid arthritis, connective tissue diseases like lupus and Sjogren???s syndrome can be associated with fibromyalgia. Sometimes a severe trauma (physical or emotional) can predispose to developing fibromyalgia. Risk factors Female gender - Well over 90% of patients with fibromyalgia are women. Younger age - It is unusual to have the first presentation of fibromyalgia occur after age 65. Poor sleep - From whatever cause (pain, stress, restless legs, sleep apnea, legs cramps) can contribute to developing fibromyalgia. Family history - If siblings or parents have had fibromyalgia, this may increase your risk. 2% of the [place] population or 3-6 million people have fibromyalgia Evaluation Usually the laboratory and x-rays findings in fibromyalgia are normal. Some laboratory tests and imaging tests may be considered to rule out other potential causes of pain. The patient???s history and the physical examination are the most important clues to diagnosing fibromyalgia. TREATMENT Health care providers A number of different providers may assist in the care of your fibromyalgia. Your primary care provider will usually be familiar with fibromyalgia and many of its treatments. Physical medicine and rehabilitation doctors are also experts in the treatment of non-inflammatory musculoskeletal pain and can be helpful in prescribing specific physical therapy regimens. Since many cases of fibromyalgia have small fiber neuropathy, visiting with a Neurologist about that may sometimes be helpful. Rheumatologists often assist with ruling out other causes of musculoskeletal pain and making recommendations for treatment in difficult cases. Other providers such as doctors of chiropractic, physical therapists, occupational therapists, acupuncturists, and other alternative providers often play a role. Some psychologists have expertise in helping patients better manage chronic pain. Xyd-otqpuimxqj-gnudm treatments An exercise program is an essential part of counteracting fibromyalgia. You need to know a number of things before beginning a program. The best types of exercise to consider are low-impact aerobic activities. Aerobic means getting you hear rate up to 60-80% of maximum (220 minus age). For example,if you are 40 years old, the goal heart rate would be 0.6 (220-40) to 0.8(220-40), or 108 to 144. The goal is to find an activity that allows you to maintain this heart rate for 20-30 minutes at least 3 days per week. The best forms of exercise for fibromyalgia are walking, biking, swimming, and water aerobics. Probably the least imposing way to start is a water aerobics program in a heated pool.Many community pools such as the [facility] offer ???fibrocize?? water aerobics programs. A very important point to remember is to start your exercise program slowly and gradually increase it. Try not to make the mistake of going out the first day and doing a hard workout for 30 minutes. Many patients will feel so poorly after this that they never go back. Start very slowly and gradually increase. It is important to remember, however, that many people will have an increase in pain for several weeks before exercise begins to decrease the pain. Try to persevere through this period. Exercises that cause significant postexercise pain are probably too intense. Other forms of exercise that include muscle strengthening like Pilates and Santos Chi may be beneficial. Cognitive behavioral therapy is another very helpful intervention for fibromyalgia. Unfortunately, there is no ???magic bullet?? pill to take away all the symptoms of fibromyalgia. Therefore, learning healthy techniques to better manage pain is imperative. Meditation and relaxation techniques provide a way to refocus your mind away from the pain and cope better with it. This type of treatment can also help reduce stress. Occupational therapists at [facility] offer a program called the Lifestyle renewal program (see information on last page), where you can learn these techniques, and the majority of patients report that this is helpful. Pain psychologists at [facility] are another helpful resource. Amanda Spencer, PhD, Beba Phan Ed, LP, Psychologist at [facility] [Chronic pain (headaches, fibromyalgia, etc.) and irritablebowel syndrome - evaluation and treatment], and Richard Nance, Ph.D., LP, Psychologist at [facility] (Chronic pain evaluation). Patients may schedule appointments as usual by contacting the Mental Health Department at . An intake counselorwill request information on the presenting problem and referral source. A variety of other modalities are helpful for some patients. Massage can help loosen and relax tight muscles. Acupuncture may help address abnormal pain processing and has been shown in a randomized trial to provide decreased pain. On a practical note, massage and acupuncture are not routinely covered through insurance. Physical therapy with gentle stretching and muscle strengthening can help in some instances, as can rn intensive care unit. Warm water pool physical therapy at places like the [facility] and [facility] can be prescribed by your physician, if necessary. There are also a number of fibromyalgia support groups. Many patients ask if specific dietary modifications can help, and some patients have found for themselves that certain foods or diets can help or hinder with their pain. To date, there are no specific trials which have shown that one specific food or diet is helpful. However, weight loss can be helpful, and eating a balanced diet to help lose a few pounds is usually beneficial. Although no controlled trials support its recommendation, some patients report that getting regularexposure to morning sunlight can boost mood and wellbeing. Medications Because fibromyalgia is common, more and more medications are being studied and developed to help. While no medicine is yet curative, they can be a useful part of the treatment. The medications for fibromyalgia can in general be thought of to work on one of several areas. Some help with restoring good sleep. Anti- depressants can help treat depression, if it is present. Others work on pain. And some work on several of these areas. Medications which you and your doctor may consider include, but are not limited to: Acetaminophen (Tylenol) - This is a mild, but safe analgesic when taken in doses of 1000 mg, three times daily. NSAIDs (Nonsterioidal anti-inflammatory drugs) - Medications like ibuprofen (Advil) and naproxen (Aleve) sometimes offer some pain relief. They should be taken with food to avoid stomach irritation and not be continued if they offer no benefit. Amitriptyline (Elavil) - Technically an antidepressant, this medicine when used in low doses is helpful for improving sleep. Typical dose would be 10 - 100 mg at night. Side effects could include drymouth and grogginess. Nortriptyline (Pamelor) - Technically an antidepressant, this medicine when used in low doses is helpful for improving sleep. Typical dose would be 10 - 100 mg at night. Side effects could include dry mouth and grogginess. Trazodone (Deseryl) - Technically an antidepressant, this medicine when used in low doses is helpful for improving sleep. Typical dose would be 25-150 mg at night. Side effects could include dry mouth and grogginess. Doxepin (Sinequan) - Technically an antidepressant, this medicine when used in low doses is helpfulfor improving sleep. Typical dose would be 10 - 100 mg at night. Side effects could include dry mouth and grogginess. Milnacipran (Savella) - This is a newer generation of antidepressant, which has shown benefits not only for depression, but also for improving pain, even in those without depression. It increases both serotonin and norepinephrine in the brain. It is now FDA approved for fibromyalgia. Typical dosingis 12.5 - 200 mg/day. Duloxetine (Cymbalta) - This is a newer generation of antidepressant, which has shown benefits not only for depression, but also for improving pain, even in those without depression. It increases both serotonin and norepinephrine in the brain. It is now FDA approved for fibromyalgia. Tramadol (Ultram) or combined with Tylenol (Ultracet) - This medication is primarily for pain. It is a weak opioid and for that reason has been used less in recent times because of potential addictive potential. Typical dose would be 50 - 100 mg up to 4 times daily. It should be avoided if you havea history of a seizure disorder. Side effects could include nausea, sedation, and constipation. Also, it should be used cautiously in patients already taking medications such as sertraline (Zoloft), paroxetine (Paxil), fluoxetine (Prozac), citalopram (Celexa), escitalopram (Lexapro), venlafaxine (Effexor), duloxetine (Cymbalta). Pramipexole (Mirapex) - This medication was first used to treat Parkinson???s disease and the Restless Leg Syndrome. Recent studies have shown that it can reduce pain levels in fibromyalgia. It has surprisingly few side effects, but can cause nausea, transient anxiety, or weight loss. Typical dose is starting at 0.25 mg daily and gradually increasing to a maximum of 4.5 mg at night. Gabapentin (Neurontin) - First developed to treat seizures, gabapentin helps block certain nerve transmissions and can reduce nerve pain called neuropathy. It can have some sedative properties and improve sleep in selected patients. Typical dose would be starting at 100 mg at night and gradually increasing as tolerated to as high as 800 mg three times daily. There is now a published trial suggesting that about half of patients get at least a 30% improvement in pain. Sleep can be significantly improved with gabapentin also. Pregabalin (Lyrica) - This is a newer generation cousin of gabapentin, but is more expensive. Typically, the starting dose is 25 mg daily, increasing as tolerated to 150 mg three times daily as tolerated. Lyrica is FDA approved for fibromyalgia. Muscle relaxers: Cyclobenzaprine (Flexeril), carisoprodol (Soma), methocarbamol (Robaxin), metaxalone (Skelaxin), tizanidine (Zanaflex) can be useful to relax to help with relaxation of tight musclesand because of their natural sedative effects can help with sleep also. Opioid pain medicines (codeine, hydrocodone, oxycodone, morphine, etc) are typically NOT recommended as part of the medication program in fibromyalgia. They tend to not control the pain, creating a need for more and more medication. Some pain specialists will consider their use in selected circumstances. Procedures Sometimes, several very tender muscular areas called trigger points can be injected by your Materials Assistant or other providers with a mixture of local anesthetic and a small amount of cortisone. Theseare called trigger point injections and can often help provide relief to local areas of particularly sore muscles. Prognosis Fibromyalgia is a chronic condition, but can sometimes go away. The goal is to manage it through all of the interventions above. Of importance, it is not typically a progressive or crippling disorderand does not impair function of internal organs. Resources National Fibromyalgia Association 361 009 8771 www.fmaware.org National [place] of Arthritis and Musculoskeletal and Skin Diseases 206 029 1606 www.niams.nih.gov National Center for Complementary and Alternative Medicine 168 539 4262 www.[facility].nih.gov [facility] (Water aerobics, heated pool to 91 degrees) [address] [place] [address]; charges apply. What else can be tried? Sometimes, for a minority of patients, the above interventions do not result in control of fibromyalgia. In these cases, you should consider a chronic pain program. Several of these and additional resources are listed below: [facility], Dr. Alexy Blanchard , [address] [address], [place] [address] Also offices in [place] and [place]. , [email or web address] [facility] - Aqu[facility] Therapy: [facility], [place], [place], [place], [place], [place], [place], [place]. [email or web address] [address] [place] [address] Outpatient therapy: (physical, occupational and speech therapy; emergency detail driver evaluations) Initial appointment: [phone]; Follow-up appointment: [phone] Aquatic therapy, Joslyn Juan [place] [phone] [facility], [email or web address] [address] [facility] [facility] [address], [place] [address], . [facility] [address] [place] [address] Appointments: [phone] [facility] [phone], [address] [place] [address]; Also a location in [place]. [facility] [phone] [facility] [facility] [address] [place] [address] [facility] - they focus more on back pain, but offer cognitive behavioral therapy. Torrie Ochoa [place] [phone] [facility] [phone], [address] [facility] [address], [place] [address] Trey Ulloa MD [phone], charge master specialist, [address] [address] [facility] (will treat fibromyalgia and chronic pain syndrome in addition to head & neck disorders; also have MedX equipment for chronic back pain). [email or web address] [place]: [address] , [address], [address]; [phone] [place]: [facility] [facility], [address], [address]; [phone] [place]: [address] [facility], [address]; [phone] [place]: [address] [facility], [address]; [phone] Lifestyle Renewal Program - At [place] [facility] The LifeStyle Renewal Program is an integrated program provided by Occupational Therapists to help people work with their symptoms from a variety of treatment techniques. It is customized for each patient. Research shows that an approach which encompasses social and psychological influences as wellas physical factors is effective for decreasing symptoms and improving quality of life. A holistic a pproach can ease symptoms and improve quality of life. Location: [facility] Providers: Occupational Therapists with specialty training. Program: The LifeStyle Renewal Program is specifically tailored for each patient. This specialty program can be beneficial for a wide variety of symptoms and diagnoses, including, but not limited to: Chronic pain Cancer Asthma Depression/Anxiety Myofascial pain syndrome Chronic Fatigue Syndrome Headache/ Migraine Fibromyalgia Low back pain Irritable Bowel Syndrome Rheumatoid Arthritis Other stress related problems Our Program Focus: 1. Deal with the underlying source of pain 2. Establish a partnership between therapist and patient 3. Increase understanding - provide education 4. Use qyfv-fyjl-jtoyzk therapies to reframe pain/symptom experience 5. Modify behaviors to improve function 6. Relieve stress 7. Set up support systems 8. Increase physical activity 9. Improve sleep Education is provided in the areas of pacing, exercise, relaxation, sleep hygiene, body mechanics, postural awareness, ergonomics, Qigong, Healing Touch, problem solving and adaptive equipment. How to Contact: General information/scheduling E LOG CUT OFF SAW OPERATOR documented in this encounter Progress Notes * Tracey Marino MD - 03/31/2023 4:00 PM CST RHEUMATOLOGY FOLLOW-UP CC: History of SLE, morphea, high-risk medication use Encounter date: 03/31/2023 Date of last office visit: 11/25/2022 Rheumatologic history: The patient is a 52 y.o. female with medical history of systemic lupus erythematosus, morphea, hip dysplasia status post hip replacement, carpal tunnel,myofascial pain, insomnia, iron deficiency anemia, hypothyroidism, and acid reflux presenting today for follow-up. She was previously following with my colleague, Dr. Drummond, last visit was in September 2021. She was initially evaluated by Rheumatology at the [facility] in 2011. Initially her disease was characterized by hair loss, photosensitivity, generalized joint pain, fatigue, dry eyes. She was initially started on glucocorticoids, hydroxychloroquine, low-dose methotrexate. She was seen in our clinic in 2013 to transfer care. She was also noted to have a history of leukopenia and thrombocytopenia. Serologies in the past showed evidence of a positive BRIJESH and double-stranded DNA. Repeat blood workdone in 2018 showed negative BRENDA antibodies, negative double-stranded DNA. No history of blood clot, stroke, or seizure. She has not had miscarriage. She has 2 daughters and 1 adopted son. She notes that her sister and her mom have autoimmune symptoms, mother has been diagnosed with lupus but not her sister. Her current regimen has included hydroxychloroquine, low-dose prednisone, leflunomide. 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 January 2022: continued hydroxychloroquine, prednisone 3 mg daily, and leflunomide. Recommend additional options for myofascial pain. Interim history: She states that she continues to have pain all over. Feels like she has swelling of the knees today. She states her injections stopped working. Tried synvisc and glucocorticoids without much improvement. She is getting a buniectomy done 04/18. It is painful to walk and drive. She is doing PT for her back pain and working on core strength. Heat is helpful. She did have a increase in her lyrica. She has not been doing water aerobics as much. She is having days where her pain levels are 7-8/10. She has been trying to just work through it. She has been feeling more frustrated in general. She had COVID this school year and was sick right after. Has cold symptoms in January. Prednisone was helpful. Now on 3 mg. No new ulcers or rashes. Continue to have dryness. No pleurisy symptoms but has costochondritis symptoms. No history of ulcers in the past. No recent cough, shortness of breath or fevers. Feels worn out every day. ROS: Review of systems for today's visit was reviewed, and is as noted above PMH: Updated in EMR Outpatient Encounter Medications as of 03/31/2023 Medication Sig Dispense Refill calcium citrate-vitamin D (CITRACAL+D) 315-200 MG-UNIT tablet Take 1 Tablet by mouth two times a day. Carboxymethylcellulose Sodium (REFRESH LIQUIGEL OP) Place 1 drop into both eyes 4 times daily as needed (Use 3-4 times daily). DULoxetine (CYMBALTA) 20 MG capsule Take 1 Capsule (20 mg) by mouth daily. 30 Capsule 0 hydroxychloroquine (PLAQUENIL) 200 MG tablet Take 1 Tablet (200 mg) by mouth two times a day. 180 Tablet 0 ketoconazole (NIZORAL) 2 % cream Apply topically two times daily as needed. For flares, to the foldareas. 60 g 11 leflunomide (ARAVA) 20 MG tablet TAKE ONE TABLET BY MOUTH EVERY DAY 30 Tablet 0 levothyroxine (AKA SYNTHROID) 150 MCG tablet Take 1 Tablet (150 mcg) by mouth daily. nystatin (MYCOSTATIN) 805974 UNIT/GM powder Apply to affected areas up to 3 times daily until healing is complete. 30 g 3 omeprazole (PRILOSEC) 20 MG capsule Take 1 Capsule (20 mg) by mouth. oxyBUTYnin (DITROPANXL) 10 MG 24 hour release tablet Take 1 Tablet (10 mg) by mouth daily. predniSONE (DELTASONE) 1 MG tablet Take 3 Tablets (3 mg) by mouth daily. 270 Tablet 1 pregabalin (LYRICA) 100 MG capsule Take 1 Capsule (100 mg) by mouth two times a day. 200 mg pm triamcinolone (KENALOG) 0.1 % lotion Apply topically. VITAMIN D, CHOLECALCIFEROL, OR [DISCONTINUED] clobetasol prop emollient base 0.05 % cream Apply 1 Applicator topically two times daily as needed (Apply 1 applicator topically 2 times daily as needed for Itching.). 15 g 2 [DISCONTINUED] gabapentin (NEURONTIN) 300 MG capsule TAKE ONE CAPSULE BY MOUTH EVERY MORNING AND TAKE TWO CAPSULES BY MOUTH EVERY EVENING FOR PAIN AND SLEEP 270 Capsule 3 [DISCONTINUED] Lifitegrast 5 % SOLN Place 1 Drop into eye(s). [DISCONTINUED] omeprazole (PRILOSEC) 20 MG capsule Take 40 mg by mouth. No facility-administered encounter medications on file as of 03/31/2023. ALLERGIES: Updated in EMR Social History Tobacco Use Smoking Status Never Smokeless Tobacco Never Social History Substance and Sexual Activity Alcohol Use Yes Types: 2 Cans of beer per week Comment: one beer or glass of wine weekly MEDS: Reviewed and updated in the computerized record. Physical exam: Blood pressure 136/79, pulse 74, weight 205 lb (93 kg). General: Alert, no distress, appears comfortable Eyes: anicteric, EOMI ENT: Good saliva pool, no evidence of ulcerations Resp: breathing comfortably on room air. CTAB CV: RRR Abd: Normal bowel sounds Skin: no ulcerations, nodules, or rashes noted on visible skin except or excoriation of the right dorsum of the hand. Does have some dryness of the tips of the fingers with some cracking of the skin.No other obvious rashes on visible skin. Neuro: normal gait. Grossly normal strength. MSK: A focused joint exam was performed. The joint exam was negative for synovitis, deformity, tenderness, deformity with the exception of: Continues to have chronic pannus of the MCP joints bilaterally without tenderness to palpation of the true MCP joints. There is no tenderness to palpation or sy novitis of the DIP or PIP joints. Does have tenderness to palpation of the wrists and palms of the hands bilaterally. Full range of motion of the shoulders with stiffness with range of motion. No pain with hip flexion. There is no evidence of synovitis of the right foot though does have a prominentbunion deformity of the right 1st MTP joint with tenderness to palpation. Crepitus of the knees bilaterally with pain. Continues to have diffuse soft tissue tender points consistent with active fibromyalgia. Labs: Lab Results Component Value Date WBC 5.1 11/25/2022 RBC 3.86 (L) 11/25/2022 Hemoglobin 12.4 11/25/2022 HCT 37.7 11/25/2022 MCV 97.7 11/25/2022 RDW 13.9 11/25/2022 Platelets 121 (L) 11/25/2022 Lab Results Component Value Date AST (SGOT) 43 (H) 11/25/2022 , Lab Results Component Value Date ALT (SGPT) 36 11/25/2022 Lab Results Component Value Date Creatinine 1.00 11/25/2022 Lab Results Component Value Date Sedimentation Rate 11 11/11/2022 , Lab Results Component Value Date C-Reactive Protein <0.5 11/11/2022 Imaging: MRI lumbar spine 11/08/2022: 1. Lumbar curve convex to the left. 2. Otherwise normal alignment. No fractures. 3. Lumbar spondylosis. 4. At L1-2, mild narrowing of the spinal canal and bilateral neural foramina 5. At L2-3, moderate to severe right neural foraminal narrowing. Potential impingement of the exiting right L2 nerve root 6. At L3-4, posterior disc bulge. Central disc extrusion with cephalad migration. Moderate narrowing of the spinal canal. Moderate narrowing of the bilateral neural foramina 7. At L4-5, mild narrowing of the spinal canal. Moderate narrowing of the bilateral foramina DXA 10/13/2020: Impression Normal bone density. RECOMMENDATIONS: The National Osteoporosis Foundation recommends pharmacologic treatment for patients with T-scores of -2.5 or less, patients with prior history of fragility fractures, or patients with 10-year probability of greater than 3% at hips or greater than 20% of suffering major osteoporotic fractures. Recommend continued optimization of calcium and vitamin D intake through dietary means and/or supplementation and regular exercise. Repeat scan recommended in 5-[address] ab/pelvis 01/15/2022: 1. Cholelithiasis without evidence to suggest cholecystitis, obstruction of the bile ducts or liverabnormality. 2. Degenerative scoliosis. Orthopedic hardware left hip and pelvis. 3. Centrally positioned uterine IUD. 2.6 cm left ovarian follicle. 4. Small hiatus hernia. ASSESSMENT/PLAN: # SLE # myofascial pain, fibromyalgia # high-risk medication use # long-term glucocorticoid use # OA multiple sites Ms. Em is a very pleasant 52 y.o. female presenting today for follow-up. We discussed the following below: 1. History of systemic lupus erythematosus. Initially diagnosed at the [facility] in 2011. Historyof positive BRIJESH and double-stranded DNA, though since subsequent serologies including BRENDA antibodies and double-stranded DNA have been unremarkable. Initial symptoms presented with photosensitivity, fatigue, arthralgias, history of hematologic involvement. From a lupus standpoint, it appears that she is been doing okay. Denies any ulcerations, history ofserositis, has been having some costochondritis symptoms. She does feel like she has been having some intermittent swelling of the joints. Also notes increased diffuse myofascial pain as well. She was sick around March 2023 and has had continued fatigue and symptoms since that time though has been struggling since our last visit in general. She is tolerating hydroxychloroquine 200 mg b.i.d., continues to be on prednisone 3 mg daily. She continues to be on leflunomide 20 mg daily. Overall sheis tolerating this well. Receive the flu shot today. Will obtain lupus monitoring blood work today as we reviewed my concern for increasing immunosuppression for her myofascial pain symptoms as thereis some tender joints on today's exam without evidence of overt synovitis or dactylitis, so suspectthat her pain symptoms are more consistent with active myofascial pain and osteoarthritis. Given her limitation from her symptoms, we will increase her prednisone to 20 mg daily for 5 days then 10 mg daily for 5 days then 5 mg daily for 5 days. If her monitoring blood work shows evidence of active inflammation/disease, would consider continuing on 5 mg of prednisone instead of her baseline 3 mg. 2. Myofascial pain. Continues to have findings consistent with active fibromyalgia. She is currently doing land therapy and continues to intermittently do pool therapy. Continues to be on Lyrica and dose was increased by primary care and has found benefit with this. We could consider addition of a muscle relaxant. I do think she may benefit from seeing a silo painter as well. 3. Long-term glucocorticoid use. Most recent DXA scan was done at [facility] in September 2020 which showed evidence of normal bone density. Given her prolonged glucocorticoid use as suggest that we repeat this in 2-3 years, will plan on repeat in October 2023. 4. Osteoarthritis of multiple sites continues to struggle with osteoarthritis of the knees. She notes that she needs bilateral knee replacements. Also had repeat injections without any benefit. Declines these at today's visit. She is considering some radio frequency ablation which I think would be reasonable that has been offered by her public health clinical nurse specialist. After discussion we elected to do a retrial of Celebrex 100 mg b.i.d.. Can use twice daily for the next 14 days then use as needed. If no improvement in the next 2 weeks advised to let me know. Can use Tylenol with this as well. Will plan on follow-up in 12-14 weeks. Patient advised to call clinic if symptoms change or worsen or if new symptoms develop. All of the patient's questions were answered to the best of my ability. Billing based on: complexity. Tracey Marino MD [facility] E LOG CUT OFF SAW OPERATOR documented in this encounter Plan of Treatment Upcoming Encounters Date Type Department Care Team (Late st Contact Info) Description 08/03/2023 3:00 PM CDT Appointment [facility] [address] [place], [place] [phone] Tracey Marino MD [address] [place], [place] [phone] documented as of this encounter Results * C-Reactive Protein (03/31/2023 4:46 PM STAVE LOG CUT OFF SAW OPERATOR) Pathologist [facility] C-Reactive Protein <0.5 0.0 - 0.5 mg/dL 03/31/2023 6:54 PM STAVE LOG CUT OFF SAW OPERATOR [facility] Blood Venipuncture / Unknown 03/31/2023 4:46 PM STAVE LOG CUT OFF SAW OPERATOR 03/31/2023 4:46 PM STAVE LOG CUT OFF SAW OPERATOR Tracey Marino MD LAB_1 Performing Organization Address [facility]/ZIP Co de Phone Number [facility] [address] [place] [address], [facility] [phone] * ESR (03/31/2023 4:46 PM STAVE LOG CUT OFF SAW OPERATOR) Pathologist [facility] Sedimentation Rate 7 0 - 20 mm/hr 03/31/2023 5:29 PM STAVE LOG CUT OFF SAW OPERATOR [facility] Blood Venipuncture / Unknown 03/31/2023 4:46 PM STAVE LOG CUT OFF SAW OPERATOR 03/31/2023 4:46 PM STAVE LOG CUT OFF SAW OPERATOR Tracey Marino MD LAB_1 Performing Organization Address [facility]/ZIP Co de Phone Number [facility] [address] [place] [address], [facility] [phone] * Basic Metabolic Panel (03/31/2023 4:46 PM STAVE LOG CUT OFF SAW OPERATOR) Sodium 141 136 - 145 mmol/L 03/31/2023 6:54 PM [facility] Potassium 3.5 3.5 - 5.1 mmol/L 03/31/2023 6:54 PM [facility] Chloride 107 98 - 109 mmol/L 03/31/2023 6:54 PM [facility] CO2 27 20 - 29 mmol/L 03/31/2023 6:54 PM [facility] Anion Gap 7 7 - 16 mmol/L 03/31/2023 6:54 PM [facility] Calcium 8.6 8.4 - 10.4 mg/dL 03/31/2023 6:54 PM [facility] BUN 10 7 - 26 mg/dL 03/31/2023 6:54 PM [facility] Creatinine 0.90 0.55 - 1.02 mg/dL 03/31/2023 6:54 PM [facility] Glucose 93 70 - 100 mg/dL 03/31/2023 6:54 PM [facility] Comment:The given reference range is for the fasting state. Non-fasting reference range for glucose is 70 - 180 mg/dL. GFR, Estimated >60 >60 mL/min/1.7 3m2 03/31/2023 6:54 PM [facility] Hours Fasting 0.1 8 - 12 Hours 03/31/2023 6:54 PM [facility] Comment:Lab unable to obtain patient's fasting status at time of specimen collection. Blood Venipuncture / Unknown 03/31/2023 4:46 PM STAVE LOG CUT OFF SAW OPERATOR 03/31/2023 4:46 PM STAVE LOG CUT OFF SAW OPERATOR Tracey Marino MD LAB_1 [facility] [address] [place] [address], [facility] [phone] * C4 Complement (03/31/2023 4:46 PM STAVE LOG CUT OFF SAW OPERATOR) C4 Complement 23.0 15.0 - 57.0 mg/dL 03/31/2023 9:41 PM STAVE LOG CUT OFF SAW OPERATOR [facility] Blood Venipuncture / Unknown 03/31/2023 4:46 PM STAVE LOG CUT OFF SAW OPERATOR 03/31/2023 4:46 PM STAVE LOG CUT OFF SAW OPERATOR Tracey Marino MD LAB_1 Performing Organization Address [facility] Co de Phone Number [facility] [address] * C3 Complement (03/31/2023 4:46 PM STAVE LOG CUT OFF SAW OPERATOR) C3 Complement 97 83 - 193 mg/dL 03/31/2023 9:41 PM STAVE LOG CUT OFF SAW OPERATOR [facility] Blood Venipuncture / Unknown 03/31/2023 4:46 PM STAVE LOG CUT OFF SAW OPERATOR 03/31/2023 4:46 PM STAVE LOG CUT OFF SAW OPERATOR Tracey Marino MD LAB_1 Performing Organization Address [facility] Phone Number [facility] [address] * DNA Double Stranded Antibody (Salena) (03/31/2023 4:46 PM STAVE LOG CUT OFF SAW OPERATOR) Anti-dsDNA Ab (Salena Assay) <8.0 <8.0 IU/mL 04/07/2023 12:06 AM STAVE LOG CUT OFF SAW OPERATOR [facility] Blood Venipuncture / Unknown 03/31/2023 4:46 PM STAVE LOG CUT OFF SAW OPERATOR 03/31/2023 4:46 PM STAVE LOG CUT OFF SAW OPERATOR Narrative [facility] - 04/07/2023 12:06 AM STAVE LOG CUT OFF SAW OPERATOR Test(s) [id number] Ab by Salena(RDL) was developed and its performance characteristics determined by [facility]. It has not been cleared or approved by the Food and Drug Administration. Performed at: ??01 - [facility] [address] [place] [address] ??[id number] Mobile Lounge Driver: Puneet French MD, Phone: ??[phone] Tracey Marino MD LAB_1 Performing Organization Address [facility] Co de Phone Number [facility] [address] [address] [place] [address] documented in this encounter Visit Diagnoses Diagnosis Other systemic lupus erythematosus with other organ involvement ([facility])- Primary Need for vaccination Need for prophylactic vaccination and inoculation against unspecified single disease Inflammatory arthritis Unspecified inflammatory polyarthropathy Osteoarthritis of multiple joints, unspecified osteoarthritis type Fibromyalgia Mylagia and myositis, unspecified terminal gauger supervisor current use of systemic steroids Encounter for long-term (current) use of steroids 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) documented in this encounter Care Teams Lean Engineer Relationship Specialty Start Date End Date Joyce Wilson MD [address] [place] [id number] PCP - General 06/08/13 documented as of this encounter
--- OUTSIDE RECORDS SUMMARY | 2023-06-21 09:25 | XMS_ITS | Encounter Summary ---
Author Name Unknown Organization [facility] Address [address] [address] Care Team Providers Care Numerical Control Drill Press Operator Name Role Phone Joyce Wilson MD Primary Care Provider [phone] Reason for Visit * Reason Comments Refill Encounter Details Date Type Department Care Team (Late st Contact Info) Description 12/29/2022 Refill [facility] [address] [place], [place] [address] Tracey Brown MD [address] [place] [phone] Refill Social History Tobacco Use Types Packs/Day [...] Nursing Notes * Sirena Worrell RN - 12/29/2022 9:16 AM CDT LV: 11/25/22 [place]: 03/31/23 [facility] DOS:08/17/21 No evidence of plaquenil toxicity. Patient reported to provider that her eye exam is scheduled for December 2022. Short fill provided. Renewed medication per medication refill standing order. Requested Prescriptions Signed Prescriptions Disp Refills hydroxychloroquine (PLAQUENIL) 200 MG tablet 180 Tablet 0 Sig: Take 1 Tablet (200 mg) by mouth two times a day. Authorizing Provider: TRACEY BROWN Ordering User: SIRENA WORRELL documented in this encounter Plan of Treatment Upcoming Encounters Date Type Department Care Team (Late st Contact Info) Description 08/03/2023 3:00 PM CDT Appointment [facility] [address] [place] [address] Tracey Brown MD [address] [place] [phone] documented as of this encounter Visit Diagnoses Not on filedocumented in this encounter Care Teams Numerical Control Drill Press Operator Relationship Specialty Start Date End Date Joyce Wilson MD [address] [place] [phone] PCP - General 06/08/13 documented as of this encounter
--- OUTSIDE RECORDS SUMMARY | 2023-06-21 09:26 | XMS_ITS | Clinical Summary ---
Author Name Unknown Organization [employer] [facility] Address [place], [place] [address] Care Team Providers Care Chainman Name Role Phone Selene Carranza Primary Care Provider [phone] Allergies No known active allergies Medications Medication Sig Dispensed Refills Start Date End Date Status hydroxychloroquine (PLAQUENIL) 200 mg tablet Take 1 tablet by mouth 2 times daily. 0 08/30/2017 Active carboxymethylcellul ose (REFRESH PLUS) 0.5 % ophthalmic solution Place into the eye(s). 0 Active calcium carbonate (CALTRATE) 600 mg calcium (1,500 mg) tabletIndications:O ther forms of systemic lupus erythematosus, unspecified organ involvement status (HC) Take 1 tablet by mouth 2 times daily with meals. 180 tablet 3 12/01/2018 Active celecoxib (CELEBREX) 200 mg capsule Take 100 mg by mouth two times daily with meals. 0 01/22/2019 Active cholecalciferol (Vitamin D) 1,000 unit capsuleIndications: Osteoporosis, unspecified osteoporosis type, unspecified pathological fracture presence Take 2 Capsules (2,000 units) by mouth once daily. 90 Capsule 3 03/09/2022 Active ibuprofen (ADVIL; MOTRIN) 600 mg tabletIndications:R ight inguinal hernia Take 1 Tablet (600 mg) by mouth every 6 hours if needed for Pain. Maximum of 3200 mg in 24 hours. 30 Tablet 0 05/26/2022 Active levothyroxine (SYNTHROID) 150 mcg tabletIndications:H ypothyroidism, postablative Take 1 Tablet (150 mcg) by mouth before breakfast. 90 Tablet 3 06/21/2022 Active leflunomide (ARAVA) 20 mg tablet Take 20 mg by mouth once daily. 0 10/21/2022 Active oxybutynin XL (DITROPAN XL) 10 mg CR tabletIndications:O AB (overactive bladder) Take 1 Tablet (10 mg) by mouth once daily. 90 Tablet 3 10/21/2022 Active nystatin powder (MYCOSTATIN) powderIndications:C andidiasis, intertriginous Apply 1 Strip topically to affected area(s) three times daily. 60 g 2 10/21/2022 Active predniSONE (DELTASONE) 1 mg tabletIndications:S ystemic lupus erythematosus, unspecified SLE type, unspecified organ involvement status (HC) Take 40 mg by mouth once daily with a meal. 0 02/25/2023 Active durable medical equipment (DME)Indications:Loomis llux rigidus, right foot,Bunion, right,Hammertoe of right foot AIR SELECT, SHORT, MEDIUM, REF: [id number] 1 Each 0 04/07/2023 Active durable medical equipment (DME)Indications:Loomis llux rigidus, right foot,Bunion, right,Hammertoe of right foot SQUARED TOE POST OP SHOE, SMALL, REF: [id number] 1 Each 0 04/07/2023 Active famotidine (PEPCID) 40 mg tabletIndications:C hronic GERD Take 1 Tablet (40 mg) by mouth once daily. 90 Tablet 3 04/08/2023 Active oxyCODONE (ROXICODONE) 5 mg immediate release tabletIndications:H allux rigidus, right foot,Bunion, right Take 1-2 Tablets (5-10 mg) by mouth every 4 hours if needed for Pain. 20 Tablet 0 04/18/2023 Active pregabalin (LYRICA) 100 mg capsuleIndications: Neuropathic pain TAKE ONE CAPSULE BY MOUTH TWICE A DAY 180 Capsule 1 05/20/2023 Active omeprazole (PRILOSEC) 20 mg Delayed-Release capsuleIndications: Chronic GERD Take 1 Capsule (20 mg) by mouth once daily before a meal. 90 Capsule 3 06/19/2022 4 Discontinue d(*Med complete/Re gimen complete/Le zoey of care change) aluminum-magnesium hydroxide-simethico ne (MAALOX PLUS) 200-200-20 mg/5 mL suspensionIndicatio ns:Indigestion Take 15 mL by mouth one time for 1 dose. Mix 15mL of viscous lidocaine with 15mL of Maalox. Take mixture one time 15 mL 0 06/13/2023 4 lidocaine, viscous, 2 % liquidIndications:I ndigestion Take 15 mL by mouth one time for 1 dose. Mix 15mL of Maalox with 15mL of viscous lidocaine. Take mixture every 4 hours scheduled for 4 doses then every 4 hours as needed for pain. 15 mL 0 06/13/2023 4 Active Problems Problem Noted Date Diagnosed Date Abnormal mammogram 12/31/2022 Overview: Follow up right breast US/mammo in 6 months, July 2023. Selene Carranza PA-C, Family Medicine.....................12/31/2022 9:58 AM Primary osteoarthritis of right knee 11/11/2022 Primary osteoarthritis of left knee 09/02/2022 Bilateral carpal tunnel syndrome 05/14/2022 Osteoarthritis of patellofemoral joints, bilater al 03/04/2022 Localized morphea 04/29/2020 Screening for diabetes mellitus 12/01/2018 Screening cholesterol level 12/01/2018 Status post total replacemen t of left ship 12/02/2016 Joaquin Doyle 12/15/2016 Osteoarthritis of left hip 12/02/2016 s/p left hip/pelvis surgery for left hip dysplas ia 10/26/2016 Tinnitus, bilateral 01/24/2014 Sensorineural hearing loss, bilateral 01/24/2014 Lupus (systemic lupus erythematosus) Hypothyroidism, postablative Neutropenia Resolved Problems Problem Noted Date Diagnosed Date Resolved Date Rheumatoid arthritis(714.0) 12/11/2012 12/11/2012 Encounters Date Type Department Care Team Description 06/20/2023 10:58 AM GEOLOGICAL TECHNICIAN - 06/20/2023 11:59 PM GEOLOGICAL TECHNICIAN Hospital Encounter [facility] [address] [place] [address] Abnormal mammogram 06/20/2023 Travel 06/15/2023 Orders Only [facility] [address] [facility] [place] [address] Moe Ambriz NP 1 scan: (1-Ord) 06/13/2023 06/13/2023 3:40 PM GEOLOGICAL TECHNICIAN Office Visit [facility] [address] [place] [address] Moe Ambriz NP Chest Pain/problem (Has hiatal hernia. Intermittent mid sternal discomfort that radiates into neck and ears. Last week started weaning Omeprazole and starting Pepcid. Feels symptoms have developed more frequently since making the medication change. Burping a lot and is becoming more painful. Has not changed diet. ) 06/13/2023 Travel 06/13/2023 Nurse Triage [facility] [address] [place] [address] Selene Carranza PA Chest Pain 06/13/2023 Transcribe Orders [facility] [place] [address] [facility] [address] [place] [address] Rc Nuñez MD 06/12/2023 Refill [facility] [address] [place] [address] Selene Carranza PA Refill Request (Omeprazole) 06/06/2023 4:00 PM GEOLOGICAL TECHNICIAN Ancillary Procedure [facility] [address] [place] [id number] 06/06/2023 3:40 PM GEOLOGICAL TECHNICIAN Office Visit [facility] [address] [place] [address] Carmenza Stevenson PA Knee Pain/problem (EP bilateral knee pain) 06/06/2023 Travel 06/03/2023 Telephone [facility] [address] [place] [address] Rc Nuñez MD CALL BACK (scheduling knee surgery) 06/02/2023 4:00 PM GEOLOGICAL TECHNICIAN Ancillary Procedure [facility] [address] [place] [address] 06/02/2023 3:45 PM GEOLOGICAL TECHNICIAN Office Visit [facility] [address] [place] [address] Nishant Colon, DPM Post-op (Right foot, DOS 04/18/23, 6 week post op ) 06/02/2023 Travel 05/18/2023 Refill [facility] [address] [place] [address] Migel Kaba MD Refill Request (Pregabalin) 05/05/2023 3:00 PM GEOLOGICAL TECHNICIAN Office Visit [facility] [address] [place] [address] Nishant Colon, DPM Post-op (Right foot, DOS 04/18/23, 2 week post op) 05/05/2023 Travel 04/20/2023 1:45 PM GEOLOGICAL TECHNICIAN Ancillary Procedure [facility] [address] [facility] [place] [address] 04/20/2023 1:30 PM GEOLOGICAL TECHNICIAN Office Visit [facility] [address] [facility] [place] [address] Nishant Colon, DPM Post-op (Right initial post op visit, DOS 04/18/23) 04/20/2023 Travel 04/19/2023 Telephone [facility] [address] [place] [address] Nishant Colon, DPM Surgical Followup 04/18/2023 7:00 AM GEOLOGICAL TECHNICIAN Office Visit [facility] [address] [place] [address] Nishant Colon, DPM Surgery Scheduled 04/18/2023 Orders Only [facility] Scanner 1 scan: (1-Ord) [facility], XR FOOT RT 2V, 04/18/2023 04/18/2023 Orders Only [facility] Scanner 1 scan: (1-Ord) [facility] RT FOOT, 04/18/2023 04/08/2023 4:00 PM GEOLOGICAL TECHNICIAN - 04/08/2023 11:59 PM GEOLOGICAL TECHNICIAN Hospital Encounter [address] [place] [address] Migel Kaba MD Krogman, Brandon, PT 04/08/2023 2:10 PM GEOLOGICAL TECHNICIAN Preop Visit [facility] [address] [place] [address] Selene Carranza PA Preoperative Exam (Dr. Colon-right foot bunionectomy-[facility]-04/18/23) 04/07/2023 3:30 PM GEOLOGICAL TECHNICIAN Office Visit [facility] [place] [address] [place] [address] Nishant Colon DPM Follow Up (Right foot-bunion/hammertoe , final surgical consult-surgery 04/18/23) 04/07/2023 3:15 PM GEOLOGICAL TECHNICIAN Ancillary Procedure [facility] [place] [address] [place] [address] 04/07/2023 Travel 04/05/2023 Telephone [facility] [address] [place] [address] Nishant Colon DPM Failed Appointment 04/04/2023 3:14 PM GEOLOGICAL TECHNICIAN - 04/04/2023 11:59 PM GEOLOGICAL TECHNICIAN Hospital Encounter [address] [place] [address] Migel Kaba MD Henry, Lori J, NUCLEAR MEDICINE OFFICER 04/04/2023 Travel 03/29/2023 3:53 PM GEOLOGICAL TECHNICIAN - 03/29/2023 11:59 PM GEOLOGICAL TECHNICIAN Hospital Encounter [address] [place] [address] Migel Kaba MD Krogman, Brandon, PT 03/29/2023 Travel 03/23/2023 10:40 AM GEOLOGICAL TECHNICIAN Office Visit [facility] [address] [facility] [address] Migel Kaba MD Musculoskeletal Problem (Follow up back pain ) 03/22/2023 3:57 PM GEOLOGICAL TECHNICIAN - 03/22/2023 11:59 PM GEOLOGICAL TECHNICIAN Hospital Encounter [facility] [address] Migel Kaba MD Krogman, Brandon, PT 03/22/2023 Travel from Last 3 Months Immunizations Name Administration Dates Next Due COVID-19 vaccine (Moderna 100mcg/0.5mL) PF, MDV 07/05/2020,06/07/2020 DTaP 12/16/2005 Hepatitis A (Adult) 04/02/2008,05/11/2007 Influenza Virus, Unspecified 01/31/2020 Influenza, IIV3 (Age >=3 years) 02/20/20 21,02/08/2020,04/21/2013,2009,04/02/2008,04/13/2007 Influenza, IIV4 02/19/2022,01/22/2019,01/27/2017 Influenza, IIV4 (=>6mos) MDV 02/07/2020,02/11/20 16 Influenza,CCIIV4 PRESERV FREE 03/31/2023 Pneumococcal Poly,23-Valent (Pneumovax) 04/29/2010 Td, Preservative Free (age > = 7 Years) 08/09/2016 Tdap 12/16/2005 Zoster (Shingrix-RZV, recombinant) 09/09/2021, Family History Medical History Relation Name Comments Good Health Father Heart Disease Father Cancer-breast Maternal Grandmother Good Health Mother Lupus Mother Other Mother form of skin cole pus Cancer-ovarian No Family History Relation Name Status Comments Father Alive Maternal Grandmother Mother Alive Social History Tobacco Use Types Packs/Day Years Used Date Smoking Tobacco: Never Smokeless Tobacco: Never Tobacco Cessation:Counseling Given: Yes Alcohol Use Standard Drinks/Week Comments Yes 0 (1 standard drink = 0.6 oz pur e alcohol) occassional PHQ-2 Answer Date Recorded PHQ-2 TOTAL SCORE 0 04/08/2023 Social Connections Answer Date Recorded Frequency of Communication with Friends and Fami ly Not on file 04/07/2023 Financial Resource Strain Answer Date R ecorded Difficulty of Paying Living Expenses 3 04/06/2022 Difficulty of Paying Living Expenses Not on file 04/06/2022 Food Insecurity Answer Date Recorded Worried About Running Out of Food in the Last Ye ar 1 04/06/2022 Transportation Needs Answer Date Record ed Lack of Transportation (Medical) 1 04/06/2022 Housing Stability Answer Date Recorded Unable to Pay for Housing in the Last Year 1 04/06/2022 Sex and Gender Information Value Date Recorded Sex Assigned at Not on file Gender Identity Not on file Sexual Orientation Not on file Obstetrics History Para Term AB IAB SAB Ectopic Multiple Livin g Live Births 3 2 2 1 1 Date Outcome GA Total Labor Labor/2nd/3rd Weight Sex Delivery Anes PTL Tatiana A1 A5 Name Cl in SAB Term Term Last Filed Vital Signs Vital Sign Reading Time Taken Comments Blood Pressure 132/61 06/13/2023 3:45 PM GEOLOGICAL TECHNICIAN Pulse 86 06/13/2023 3:45 PM GEOLOGICAL TECHNICIAN Temperature 36.6 ??C (97.8 ??F) 06/13/2023 3:45 PM CS T Respiratory Rate 16 06/13/2023 3:45 PM GEOLOGICAL TECHNICIAN Oxygen Saturation 96% 06/13/2023 3:45 PM GEOLOGICAL TECHNICIAN Inhaled Oxygen Concentration - - Weight 93.2 kg (205 lb 6.4 oz) 06/13/2023 3:45 P M GEOLOGICAL TECHNICIAN Height 160.1 cm (5' 3.03) 04/08/2023 2:08 PM CS T Body Mass Index 36.35 04/08/2023 2:08 PM GEOLOGICAL TECHNICIAN Plan of Treatment Upcoming Encounters Date Type Department Care Team (Late st Contact Info) Description 06/21/2023 10:00 AM GEOLOGICAL TECHNICIAN Office Visit [facility] [address] [place] [address] Migel Kaba MD [address] [place] [address] Arrived 08/04/2023 3:45 PM CDT Office Visit [facility] [place] [address] [facility] [address] [place] [address] Nishant Colon DPM [address] [place] [address] 08/10/2023 2:20 PM CDT Office Visit [facility] [address] [place] [address] Migel Kaba MD [address] [place] [address] 10/06/2023 12:25 PM CDT Hospital Encounter [address] [address] Rc Nuñez MD [address] [place] [address] 10/06/2023 12:25 PM CDT - 10/06/2023 2:27 PM CDT Surgery [address] [address] Rc Nuñez MD [address] [place] [address] BEDDED OUTPATIENT RIGHT TOTAL KNEE ARTHROPLASTY 10/20/2023 11:00 AM CDT Office Visit [facility] [address] [place] [address] Xavier Hunt PA [address] , [place] [address] [place] [address] 11/15/2023 11:10 AM CDT Hospital Encounter [address] [address] cR Nuñez MD [address] [place] [address] 11/15/2023 11:10 AM CDT - 11/15/2023 1:12 PM CDT Surgery [facility] [address] [place] [address] Rc Nuñez MD [address] [place] [address] BEDDED OUTPATIENT LEFT TOTAL KNEE ARTHROPLASTY 11/30/2023 11:00 AM CDT Office Visit [facility] [place] [address] [facility] [address] [place] [address] Xavier Hnut PA [address] [place] [address], [place] [address] [place] [address] Scheduled Procedures Name Priority Associated Diagnoses Date/Ti me ARTHROPLASTY KNEE Elective Primary osteoarthritis of right knee 10/06/2023 12:25 PM CDT ARTHROPLASTY KNEE Elective Primary osteoarthritis of left knee 11/15/2023 11:10 AM CDT Health Maintenance Due Date Last Done Comments HIV for age 15-65 1985 Hepatitis C screening for age 18-79 1988 COVID-19 vaccine series (2022- season) 2022 02/19/2022, 10/19/2021, 06/26/2021, Additional history exists Fecal testing non-DNA (FIT,FOBT,iFOBT) for age 45-75 06/08/2023 06/08/2022 BMI (ht and wt on same day) for age 18+ 04/08/2024 04/08/2023, 03/09/2022, 12/16/2021, Additional history exists Depression screening for age 12+ 04/08/2024 04/08/2023, 04/08/2023, 03/02/2021, Additional history exists Mammogram for age 45-75 06/20/2024 06/20/19 24, 12/24/2022, 12/15/2022, Additional history exists Pap test for age 21-65 02/24/2025 0, 02/25/2020, 08/09/2016, Additional history exists Tetanus booster 08/09/2026 08/09/2016, 12/16/2005 Lipids for age 45-75 06/15/2027 06/15/2022, 03/02/2021, 02/25/2020, Additional history exists Tdap Completed 12/16/2005 Pneumococcal series for age 6-64 Aged Out 04/29/2010 No longer eligible based on patient's age to complete this topic Zoster (shingles) series for age 50+ Completed 09/09/2021, 04/29/2021 Influenza for age 50-64 Completed 03/31/20 23, 02/19/2022, 02/19/2021, Additional history exists Medical Devices Implanted Type Area Heavy Equipment Rental Manager Device Identifier Shelf Expiration Date Model / Serial / Lot Shell Hip Od52mm 3 Hole R3 Pe - [id number] Implanted:Qty: 1 on 12/02/2016 by Rc Nuñez MD at [facility] Left: Hip [employer] 09/29/2026 [id number] / / [id number] Liner Hip Id32 Od52mm 0deg R3 Xlpe - [id number] Implanted:Qty: 1 on 12/02/2016 by Rc Nuñez MD at [facility] Left: Hip [employer] 10/17/2026 [id number] / / [id number] Stem Hip Sz2 135deg Polarstem Std - [id number] Implanted:Qty: 1 on 12/02/2016 by Rc Nuñez MD at [facility] Left: Hip [employer] 08/19/2023 [id number]# / / [id number] Head Hip Od32mm -3 04/14 [employer] Oxin - [id number] Implanted:Qty: 1 on 12/02/2016 by Rc Nuñez MD at [facility] Left: Hip [employer] 09/27/2026 [id number]# / / [id number] Mesh Inguinal Rt 4x6in 3-D Max - [id number] Implanted:Qty: 1 on 05/26/2022 by Abram Hightower DO at [facility] Right: Abdomen [employer] 11/26/2026 [id number] / / [id number] Procedures Procedure Name Priority Date/Time Associated Diagnosis Comments AMB EPIDURAL STEROID INJECTION Routine 06/21/2023 8:01 AM GEOLOGICAL TECHNICIAN Foraminal stenosis of lumbar region Herniated lumbar intervertebral disc Lumbar radiculopathy XR MAMMO KATHRYN UNI DIAG RIGHT Routine 06/20/2023 11:23 AM GEOLOGICAL TECHNICIAN Abnormal mammogram EKG 12 LEAD Routine 06/13/2023 12:00 AM GEOLOGICAL TECHNICIAN Indigestion XR KNEE WB 3 VIEWS BILATERAL AND 1 VIEW BILATERAL Routine 06/06/2023 4:08 PM GEOLOGICAL TECHNICIAN Primary osteoarthritis of left knee Primary osteoarthritis of right knee XR FOOT 3 VIEWS RIGHT Routine 06/02/2023 3:46 PM GEOLOGICAL TECHNICIAN S/P foot surgery, right XR FOOT 3 VIEWS RIGHT Routine 04/20/2023 1:41 PM GEOLOGICAL TECHNICIAN S/P foot surgery, right SCAN-RADIOLOGY REPORT 04/18/2023 12:00 AM GEOLOGICAL TECHNICIAN SCAN-OPERATIVE/PRO CEDURE REPORT 04/18/2023 12:00 AM GEOLOGICAL TECHNICIAN XR FOOT 3 VIEWS RIGHT Routine 04/07/2023 3:16 PM GEOLOGICAL TECHNICIAN Bunion, right Hammertoe of right foot from Last 3 Months Results * XR MAMMO KATHRYN UNI DIAG RIGHT (06/20/2023 11:23 AM GEOLOGICAL TECHNICIAN) Anatomical Region Laterality Modality BREASTS, Breast Right Mammograph y, Other Impressions 06/20/2023 1:17 PM GEOLOGICAL TECHNICIAN Subtle calcifications the RIGHT breast are unchanged from the study of 6 months ago. RECOMMENDATION: ?? Recommend a followup BILATERAL diagnostic mammogram in 6 months, which would be the timing of the patient's annual exam, to further assess for stability. BI-RADS Category 3: Probably Benign Dictated by: Chavez Moe MD @06/20/2023 12:21:35 PM PATIENTS: You will also receive a letter with your examination results in an easy to read format. ??If you have questions about your results, please contact your referring provider. Narrative 06/20/2023 1:17 PM GEOLOGICAL TECHNICIAN For Patients: As a result of the Century Cures Act, medical imaging exams and procedure reports are released immediately into your electronic medical record. ??You may view this report before your referring provider. ?? If you have questions, please contact your health care provider. RIGHT DIGITAL DIAGNOSTIC MAMMOGRAM WITH COMPUTER-AIDED DETECTION AND TOMOSYNTHESIS, 06/20/2023 INDICATION: Six-month followup of RIGHT breast microcalcifications. TECHNIQUE: Diagnostic RIGHT mammogram with computer-aided detection and tomosynthesis. BREAST COMPOSITION: ?? There are scattered areas of fibroglandular density. FINDINGS: Scattered fibroglandular densities in the RIGHT breast. Spot magnification views in the CC and 90-degree lateral view again demonstrate soft microcalcifications which are stable in appearance and again suggestive of secretory calcifications. Selene URIBE MAMMO * EKG 12 LEAD (06/13/2023 12:00 AM GEOLOGICAL TECHNICIAN) Moe Ambriz NP EKG ORD * XR KNEE WB 3 VIEWS BILATERAL AND 1 VIEW BILATERAL (06/06/2023 4:08 PM GEOLOGICAL TECHNICIAN) Anatomical Region Laterality Modality KNEES Digital Radiogra phy Impressions 06/06/2023 4:24 PM GEOLOGICAL TECHNICIAN Tricompartmental Degenerative Disease of bilateral knee. All services were personally performed by Carmenza Stevenson PA-C. Documentation performed by Jonathon Figueroa, MS, LAT, ATC, OTC based on my observation of services performed and provider statements to me. Carmenza Stevenson PA-C 06/06/2023 Narrative 06/06/2023 4:24 PM GEOLOGICAL TECHNICIAN This radiology exam was performed at [facility] Radiology Department and interpreted by Carmenza Stevenson PA-C. HISTORY Bilateral knee pain. TECHNICAL Views were obtained consisting of bilateral AP weight bearing, bilateral hernandez weight bearing, bilateral sunrise non weight bearing, and bilateral lateral views of the knee(s). ?? FINDINGS: End Stage (bone on bone) patellofemoral compartment joint space narrowing bilateral knee(s) Moderate medial compartment joint space narrowing bilateral knee(s) Mild, Moderate lateral compartment joint space narrowing bilateral knee(s) Osteophytes patellofemoral, medial, lateral bilateral knee(s) valgus knee alignment No evidence of fracture or dislocation Carmenza URIBE GENERAL IMAG ING * XR FOOT 3 VIEWS RIGHT (06/02/2023 3:46 PM GEOLOGICAL TECHNICIAN) Only the most recent of3 resultswithin the time period is included. Anatomical Region Laterality Modality FEET, FOOT R Computed Radiogr aphy 06/05/2023 6:37 AM GEOLOGICAL TECHNICIAN Impressions 06/05/2023 6:37 AM GEOLOGICAL TECHNICIAN 1. Findings of 1st MTP joint fusion with intact hardware and likely mature fusion. 2. Second toe PIP joint fusion with intact hardware. Persistent visualization of at least a portion of that joint space. 3. Degenerative changes. Dictated by Erick Weber MD @ 06/05/2023 6:37:38 AM (Electronically Signed) Narrative 06/05/2023 6:37 AM GEOLOGICAL TECHNICIAN For Patients: ??As a result of the Cures Act, medical imaging exams and procedure reports are released immediately into your electronic medical record. ??You may view this report before your referring provider. ??If you have questions, please contact your health care provider. HISTORY: Right foot surgery. TECHNIQUE: Three views of the right foot. COMPARISON: 04/20/2023. FINDINGS: First MTP joint plate and screw fusion. Hardware intact and appropriately seated. There is likely fusion across ??that joint space. Findings of 2nd toe PIP joint fusion with intact hardware. Persistent visualization of much of that joint space. Remote healed 2nd metatarsal bone fracture. Degenerative changes within the midfoot and at the midfoot-forefoot joint junction with joint space narrowing. Plantar calcaneal spur. No acute fracture. Procedure Note Erick Weber MD - 06/05/2023 For Patients: As a result of the Cures Act, medical imagingexams and procedure reports are released immediately into your electronicmedical record. You may view this report before your referring provider.If you have questions, please contact your health care provider. HISTORY: Right foot surgery. TECHNIQUE: Three views of the right foot. COMPARISON: 04/20/2023. FINDINGS: First MTP joint plate and screw fusion. Hardware intact and appropriatelyseated. There is likely fusion across that joint space. Findings of 2ndtoe PIP joint fusion with intact hardware. Persistent visualization ofmuch of that joint space. Remote healed 2nd metatarsal bone fracture.Degenerative changes within the midfoot and at the midfoot-forefoot jointjunction with joint space narrowing. Plantar calcaneal spur. No acutefracture. IMPRESSION: 1. Findings of 1st MTP joint fusion with intact hardware and likely maturefusion. 2. Second toe PIP joint fusion with intact hardware. Persistentvisualization of at least a portion of that joint space. 3. Degenerative changes. Dictated by Erick Weber MD @ 06/05/2023 6:37:38 AM (Electronically Signed) Nishant Colon DPM GENERAL IMAGING * SCAN-RADIOLOGY REPORT (04/18/2023 12:00 AM GEOLOGICAL TECHNICIAN) Anatomical Region Laterality Modality Other Scanner OTHER * SCAN-OPERATIVE/PROCEDURE REPORT (04/18/2023 12:00 AM GEOLOGICAL TECHNICIAN) Scanner OTHER from Last 3 Months Advance Directives Latest Code Status on File Code Status Date Activated Date Inactivated Comments Full Code 05/26/2022 9:31 AM 05/27/2022 2:34 AM Question Answer Comments Code Status Discussion: Reviewed Preferences Code Status History Code Status Date Activated Date Inactivated Comments Full Code 12/02/2016 12:48 PM 12/04/2016 1:05 PM Full Code 12/02/2016 7:02 AM 12/02/2016 12:39 PM Care Teams Chainman Relationship Specialty Start Date End Date Selene Carranza PA [address] [place] [address] PCP - General Physician Seaming Inspector 10/21/22
--- OUTSIDE RECORDS SUMMARY | 2023-06-21 09:26 | XMS_ITS | Encounter Summary ---
Author Name Unknown Organization [facility] Address [address], [place] [address] Care Team Providers Care Tire Installer Name Role Phone Joyce Wilson MD Primary Care Provider [phone] Reason for Visit * Reason Comments Refill Encounter Details Date Type Department Care Team (Late st Contact Info) Description 11/17/2022 Refill [facility] [address] [place], [place] [phone] Tracey Brown MD [address] [place] [address] Refill Social History Tobacco Use Types [...] Nursing Notes * Sirena Worrell RN - 11/17/2022 8:12 AM CDT LV: 02/25/22 NV: 11/25/22 Lab Results Component Value Date WBC 3.3 (L) 02/25/2022 RBC 3.85 (L) 02/25/2022 Hemoglobin 12.3 02/25/2022 HCT 36.7 02/25/2022 MCV 95.3 02/25/2022 RDW 13.0 02/25/2022 Platelets 147 (L) 02/25/2022 Lab Results Component Value Date ALT (SGPT) 33 02/25/2022 Lab Results Component Value Date Creatinine 0.80 02/25/2022 Patient given a courtesy refill and asked to get labs last month, labs not done. One final courtesyfill through patient's upcoming appt next week. Renewed medication per medication refill standing order. Requested Prescriptions Signed Prescriptions Disp Refills leflunomide (ARAVA) 20 MG tablet 30 Tablet 0 Sig: TAKE ONE TABLET BY MOUTH EVERY DAY NEED LABS FOR FURTHER FILLS Authorizing Provider: TRACEY BROWN Ordering User: SIRENA WORRELL documented in this encounter Plan of Treatment Upcoming Encounters Date Type Department Care Team (Late st Contact Info) Description 08/03/2023 3:00 PM CDT Appointment [facility] [address] [place], [place] [phone] Tracey Brown MD [address] [place] [phone] documented as of this encounter Visit Diagnoses Diagnosis Other systemic lupus erythematosus with other organ involvement (HRC) Inflammatory arthritis Unspecified inflammatory polyarthropathy documented in this encounter Care Teams Tire Installer Relationship Specialty Start Date End Date Joyce Wilson MD [address] [place] [address] PCP - General 06/08/13 documented as of this encounter
--- OUTSIDE RECORDS SUMMARY | 2023-06-21 09:26 | XMS_ITS | Encounter Summary ---
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) Social [...] Info) Description 08/03/2023 3:00 PM CDT Appointment [facility] [id number] [place] [address] Tracey Marino MD [address] [place] [address] Scheduled Orders Name Type Priority Associated Diagnoses Orde r Schedule ALT (SGPT) (every 3 months) Lab Routine Other systemic lupus erythematosus with other organ involvement (HRC) 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) Every 3 Months for 4 Occurrences starting 11/11/2022 until 11/12/2023, 1 completed AST (every 3 months) Lab Routine Other systemic lupus erythematosus with other organ involvement (HRC) 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) Every 3 Months for 4 Occurrences starting 11/11/2022 until 11/12/2023, 1 completed CBC -W/Diff (every 3 months) Lab Routine Other systemic lupus erythematosus with other organ involvement (HRC) 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) Every 3 Months for 4 Occurrences starting 11/11/2022 until 11/12/2023, 2 completed documented as of this encounter Results * (ABNORMAL) AST (every 3 months) (11/25/2022 3:47 PM CDT) AST (SGOT) 43(H) 10 - 40 U/L 11/25/2022 6:15 PM CDT [facility] Blood Venipuncture / Unknown 11/25/2022 3:47 PM CDT 11/25/2022 3:47 PM CDT Tracey Marino MD LAB_1 [facility] [address] [place] [address], [facility] [phone] * ALT (SGPT) (every 3 months) (11/25/2022 3:47 PM CDT) ALT (SGPT) 36 <=55 U/L 11/25/2022 6:15 PM CDT [facility] Blood Venipuncture / Unknown 11/25/2022 3:47 PM CDT 11/25/2022 3:47 PM CDT Tracey Marino MD LAB_1 Performing Organization Address City/[facility]/ZIP Co de Phone Number [facility] [address] [place] [address] [phone] * TP/Crea Ratio, Urine (11/11/2022 12:03 PM CDT) TP/Creat Ratio, Urine Random 0.10 0.00 - 0.20 11/11/2022 6:07 PM CDT [facility] Total Protein, Urine, Random 2 0 - 14 mg/dL 11/11/2022 6:07 PM CDT [facility] Creatinine, Urine, Random 21 >20 mg/dL mg/dL 11/11/2022 6:07 PM CDT [facility] Urine URINE SPECIMEN COLLECTION, CLEAN CATCH / Unknown Non-blood Collection / Unknown 11/11/2022 12:03 PM CDT 11/11/2022 12:03 PM CDT Narrative [facility] - 11/11/2022 6:07 PM CDT Low urine creatinine values coupled with low urine protein values can artifactually increase the urine protein/creatinine results. Correlate results of ratio with creatinine results. Tracey Marino MD LAB_1 Performing Organization Address [facility]/ZIP Co de Phone Number [facility] [address] * (ABNORMAL) Urinalysis Routine, Micro/Culture if Pos: Clean Catch (11/11/2022 12:03 PM CDT) Pathologist [facility] Urine Culture Comment Urinalysis results do not meet criteria for urine culture reflex. 11/11/2022 12:05 PM CDT [facility] Urine Color Straw 11/11/2022 12:05 PM CDT [facility] Urine Clarity Clear Clear 11/11/2022 12:05 PM T [facility] Specific [place], Urine <=1.005(A) 1.005 - 1.030 11/11/2022 12:05 PM T [facility] PH Urine 6.5 5.0 - 8.0 11/11/2022 12:05 PM [facility] Protein, Urine Qual (mg/dL) Negative Neg/Trace 11/11/2022 12:05 PM [facility] Glucose Urine Qual (mg/dL) Negative Negative 11/11/2022 12:05 PM [facility] Ketones, Urine (mg/dL) Negative Negative 11/11/2022 12:05 PM [facility] Urobilinogen, Urine (EU/dL) 0.2 <2.0 11/11/2022 12:05 PM [facility] Bilirubin Urine Negative Negative 11/11/2022 12:05 PM [facility] Blood, Urine Negative Neg/Trace 11/11/2022 12:05 PM [facility] Nitrite Urine Negative Negative 11/11/2022 12:05 PM [facility] Leukocyte Est. Negative Negative 11/11/2022 12:05 PM [facility] Urine Source Clean Catch 11/11/2022 12:05 PM [facility] Urine URINE SPECIMEN COLLECTION, CLEAN CATCH / Unknown Non-blood Collection / Unknown 11/11/2022 12:03 PM CDT 11/11/2022 12:03 PM CDT Tracey Marino MD LAB_1 Performing Organization Address [facility]/ZIP Co de Phone Number [facility] [address] [place] [address], [facility] [phone] * C-Reactive Protein (11/11/2022 12:00 PM CDT) C-Reactive Protein <0.5 0.0 - 0.7 mg/dL 11/11/2022 3:20 PM T [facility] Blood Venipuncture / Unknown 11/11/2022 12:00 PM CDT 11/11/2022 12:00 PM CDT Tracey Marino MD LAB_1 Performing Organization Address [facility]/ZIP Co de Phone Number [facility] [address] [place] [address], [facility] [phone] * ESR (11/11/2022 12:00 PM CDT) Sedimentation Rate 11 0 - 20 mm/hr 11/11/2022 12:40 PM CDT [facility] Blood Venipuncture / Unknown 11/11/2022 12:00 PM CDT 11/11/2022 12:00 PM CDT Tracey Marino MD LAB_1 Performing Organization Address City/[facility] Co de Phone Number [facility] [address] [place] [address], [facility] [phone] * C4 Complement (11/11/2022 12:00 PM CDT) Pathologist [facility] C4 Complement 25.0 15.0 - 57.0 mg/dL 11/11/2022 6:26 PM CDT [facility] Blood Venipuncture / Unknown 11/11/2022 12:00 PM CDT 11/11/2022 12:00 PM CDT Tracey Marino MD LAB_1 Performing Organization Address [facility] de Phone Number [facility] [address] [place] [address] * C3 Complement (11/11/2022 12:00 PM CDT) C3 Complement 94 83 - 193 mg/dL 11/11/2022 6:26 PM CDT [facility] Blood Venipuncture / Unknown 11/11/2022 12:00 PM CDT 11/11/2022 12:00 PM CDT Tracey Marino MD LAB_1 Performing Organization Address [facility] de Phone Number [facility] [address] [place] [address] * DNA Double Stranded Antibody (Salena) (11/11/2022 12:00 PM CDT) Anti-dsDNA Ab (Salena Assay) <8.0 <8.0 IU/mL 11/19/2022 11:06 PM CDT [facility] Blood Venipuncture / Unknown 11/11/2022 12:00 PM CDT 11/11/2022 12:00 PM CDT Narrative [facility] - 11/19/2022 11:06 PM CDT Test(s) [id number] Ab by Salena(RDL) was developed and its performance characteristics determined by [facility]. It has not been cleared or approved by the Food and Drug Administration. Performed at: ?? 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
--- OUTSIDE RECORDS SUMMARY | 2023-06-21 09:26 | XMS_ITS | Encounter Summary ---
Author Name Unknown Organization [facility] Address [address], [place] [address] Care Team Providers Care Child Care Attendant Name Role Phone Joyce Wilson MD Primary Care Provider Reason for Visit * Reason Comments Refill Encounter Details Date Type Department Care Team (Late st Contact Info) Description 10/21/2022 Refill [place] [address] [facility] [address] [facility] [place], [place] [phone] Venancio Drummond MD [address] [place], [place] [phone] Refill Social History Tobacco Use Types Packs/Day [...] as of this encounter Nursing Notes * Reid Martin RN - 10/21/2022 10:41 AM CDT Last visit: 02/25/22 Future visit: 11/25/22 [facility] DOS:4/18/22 No evidence of plaquenil toxicity Patient is over due for eye exam. Called and let patient know and she states she will get it done. Sending 30 day courtesy refill. Renewed medication per medication refill standing order. Requested Prescriptions Signed Prescriptions Disp Refills hydroxychloroquine (PLAQUENIL) 200 MG tablet 60 Tablet 0 Sig: Take 1 Tablet (200 mg) by mouth two times a day. EYE EXAM NEEDED FOR FURTHER REFILLS Authorizing Provider: VENANCIO DRUMMOND Ordering User: REID MARTIN documented in this encounter Plan of Treatment Upcoming Encounters Date Type Department Care Team (Late st Contact Info) Description 08/03/2023 3:00 PM CDT Appointment [facility] [address] [place] [address] Tracey Marino MD [address] [place] [phone] documented as of this encounter Visit Diagnoses Not on filedocumented in this encounter Care Teams Child Care Attendant Relationship Specialty Start Date End Date Joyce Wilson MD [address] [place] [address] PCP - General 06/08/13 documented as of this encounter
--- OUTSIDE RECORDS SUMMARY | 2023-06-21 09:26 | XMS_ITS | Encounter Summary ---
Author Name Unknown Organization [facility] Address [address] [address] Care Team Providers Care Mechanical Estimator Name Role Phone Joyce Wilson MD Primary Care Provider [phone] Reason for Visit * Reason Comments Follow-up Encounter Details Date Type Department Care Team (Late st Contact Info) Description 11/25/2022 3:00 PM CDT Office Visit [facility] [address] [place] [address] Tracey Marino MD [address] [place] [id number] Other systemic lupus erythematosus with other organ involvement (HRC) (Primary Dx); Inflammatory arthritis; Myofascial pain; Osteoarthritis of multiple joints, unspecified osteoarthritis type; 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); 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 Continue to think your active pain is fibromyalgia! Lupus labs look good! See if you tried DULOXETINE or CYMBALTA Continue hydroxycholorquine 400 mg daily Continue leflunomide 1 tablet daily Continue 3 mg prednisone daily, after you complete the prednisone taper! Continue water aerobics! Continue lyrica Blood work today Follow up in 12 weeks Fibromyalgia What is it? Fibromyalgia is [...] in helping patients better manage chronic pain. Psi-bynkacmbii-mpwlp treatments An exercise program is an essential [...] heated pool.Many community pools such as the [employer] offer ???fibrocize?? water aerobics programs. A very [...] also help reduce stress. Occupational therapists at [facility] offer a program called the Lifestyle renewal program (see information on last page), where you can learn these techniques, and the majority of patients report that this is helpful. Pain psychologists at [facility] are another helpful resource. Amanda Spencer, PhD, Beba Phan Ed, LP, Psychologist at [facility] [Chronic pain (headaches, fibromyalgia, etc.) and irritablebowel syndrome - evaluation and treatment], and Richard Nance, Ph.D., LP, Psychologist at [facility] (Chronic pain evaluation). Patients may schedule appointments [...] can help in some instances, as can account executive healthcare. Warm water pool physical therapy at places like the [facility] and [facility] can be prescribed by your physician, [...] trigger points can be injected by your Hourly Shift Manager or other providers with a mixture of [...] of internal organs. Resources National Fibromyalgia Association 257 247 1940 www.fmaware.org National [place] of Arthritis and Musculoskeletal and Skin Diseases 208 305 0426 www.niams.nih.gov National Center for Complementary and Alternative Medicine 776 041 9985 www.[facility].nih.gov [employer] (Water aerobics, heated pool to 91 degrees) [address] [place] [address]; charges apply. What else can be tried? Sometimes, for a minority of patients, the above interventions do not result in control of fibromyalgia. In these cases, you should consider a chronic pain program. Several of these and additional resources are listed below: [facility], Dr. Alexy Blanchard , [address] [facility] [address] [address], [place] [address] Also offices in [place] and [place]. , [email or web address] Deepak [facility] - Aquatic Therapy: [facility], Yohana Najera [facility], [facility]. [email or web address] [facility] [place] [address] Outpatient therapy: (physical, occupational and speech therapy; motor coach bus driver evaluations) Initial appointment: [phone]; Follow-up appointment: [phone] Aquatic therapy, Yohana Mcnair [phone] [facility], [email or web address] [address], [place] [address], . [facility] - Pain Management [address] [place] [address] Appointments: [phone] [facility] [email or web address] [phone], [address] [place] [address]; Also a location in [place]. [facility] [phone] [place] [address] [address] [place] [address] [facility] - they focus more on back pain, but offer cognitive behavioral therapy. Torrie Ochoa [facility] [phone] [facility] [phone], [address] [facility] [address], [place] [address] Trey Ulloa MD [phone], scalp treatment specialist, [address], [place] [address] [facility] (will treat fibromyalgia and chronic pain syndrome in addition to head & neck disorders; also have [employer] equipment for chronic back pain). [email or web address] [place]: [address] , [address], [address]; [phone] [place]: [facility] [facility], [address], [address]; [phone] [place]: [address] [facility], [address]; [phone] [place]: Nola Martinez [facility], [address], [address]; [phone] Lifestyle Renewal Program - At [place] The LifeStyle Renewal Program is an integrated program provided by Occupational Therapists to help people work with their symptoms from a variety of treatment techniques. It is customized for each patient. Research shows that an approach which encompasses social and psychological influences as wellas physical factors is effective for decreasing symptoms and improving quality of life. A holistic a pproac can ease symptoms and improve quality of life. Location: [facility] Providers: Occupational Therapists with specialty training. Program: [...] Increase understanding - provide education 4. Use tylc-ymfz-imilrh therapies to reframe pain/symptom experience 5. Modify behaviors to improve function 6. Relieve stress 7. Set up support systems 8. Increase physical activity 9. Improve sleep Education is provided in the areas of pacing, exercise, relaxation, sleep hygiene, body mechanics, postural awareness, ergonomics, Qigong, Healing Touch, problem solving and adaptive equipment. How to Contact: General information/scheduling documented in this encounter Progress Notes * Tracey Marino MD - 11/25/2022 3:00 PM CDT RHEUMATOLOGY FOLLOW-UP CC: History of SLE, morphea, high-risk medication use Encounter date: 11/25/2022 Date of last office visit: 02/25/2022 Rheumatologic history: The patient is a 51 y.o. female with medical history of systemic lupus erythematosus, morphea, hip dysplasia status post hip replacement, carpal tunnel,myofascial pain, insomnia, iron deficiency anemia, hypothyroidism, and acid reflux presenting today for follow-up. She was previously following with my colleague, Dr. Drummond, last visit was in September 2021. She was initially evaluated by Rheumatology at the [facility] in 2011. Initially her disease was characterized [...] and double-stranded DNA. Repeat blood workdone in 2019 showed negative BRENDA antibodies, negative double-stranded DNA. [...] options for myofascial pain. Interim history: She is continuing to have a lot of pain and feels like water aerobics has been helpful. She feels like she has some swelling of the hands today. She also has some issues with the hands, knees, ankles. She switched from gabapentin. She was started on Lyrica in September. She feels like her pain has been bad this summer. She is talking with orthopedics about her knees and knows she needs a b/l knee replacement but cannot make it work this summer. She had a shot last . She has been using ice. She has been using Tylenol. Does not help much. No new rashes or ulcers. She is in the sun a lot and tries to wears long sleeves and sun screen. Norecent illness. No cough, SOB, or fevers. ROS: Review of systems form filled out the the patient for today's visit was reviewed, and is as noted above PMH: Updated in EMR Outpatient Encounter Medications as of 11/25/2022 Medication Sig Dispense Refill calcium citrate-vitamin D (CITRACAL+D) 315-200 MG-UNIT tablet Take 1 Tablet by mouth two times a day. Carboxymethylcellulose Sodium (REFRESH LIQUIGEL OP) Place 1 drop into both eyes 4 times daily as needed (Use 3-4 times daily). clobetasol prop emollient base 0.05 % cream Apply 1 Applicator topically two times daily as needed (Apply 1 applicator topically 2 times daily as needed for Itching.). 15 g 2 DULoxetine (CYMBALTA) 20 MG capsule Take 1 Capsule (20 mg) by mouth daily. 30 Capsule 0 gabapentin (NEURONTIN) 300 MG capsule TAKE ONE CAPSULE BY MOUTH EVERY MORNING AND TAKE TWO CAPSULESBY MOUTH EVERY EVENING FOR PAIN AND SLEEP 270 Capsule 3 hydroxychloroquine (PLAQUENIL) 200 MG tablet Take 1 Tablet (200 mg) by mouth two times a day. EYEEXAM NEEDED FOR FURTHER REFILLS 60 Tablet 0 ketoconazole (NIZORAL) 2 % cream Apply topically two times daily as needed. For flares, to the foldareas. 60 g 11 leflunomide (ARAVA) 20 MG tablet TAKE ONE TABLET BY MOUTH EVERY DAY NEED LABS FOR FURTHER FILLS30 Tablet 0 levothyroxine (AKA SYNTHROID) 150 MCG tablet Take 150 mcg by mouth daily (every 24 hours). Lifitegrast 5 % SOLN Place 1 Drop into eye(s). nystatin (MYCOSTATIN) 287453 UNIT/GM powder Apply to affected areas up to 3 times daily until healing is complete. 30 g 3 omeprazole (PRILOSEC) 20 MG capsule Take 20 mg by mouth. omeprazole (PRILOSEC) 20 MG capsule Take 40 mg by mouth. predniSONE (DELTASONE) 1 MG tablet Take 3 Tablets (3 mg) by mouth daily. 270 Tablet 0 triamcinolone (KENALOG) 0.1 % lotion Apply topically. VITAMIN D, CHOLECALCIFEROL, OR No facility-administered encounter medications on file as of 11/25/2022. ALLERGIES: Updated in EMR Social History Tobacco Use Smoking Status Never Smokeless Tobacco Never Social History Substance and Sexual Activity Alcohol Use Yes Types: 2 Cans of beer per week Comment: one beer or glass of wine weekly MEDS: Reviewed and updated in the computerized record. Physical exam: There were no vitals taken for this visit. General: Alert, no distress, appears comfortable Eyes: anicteric, EOMI ENT: oral mucosa not examined, no oral complaints Resp: breathing comfortably on room air. CTAB CV: RRR Abd: Normal bowel sounds Skin: no ulcerations, nodules, or rashes noted on visible skin except for some faint erythema of the forearms bilaterally. Unchanged, left greater than right. Hair appears normal. No facial rash. Neuro: normal gait. Grossly normal strength. MSK: A focused joint exam was performed. The joint exam was negative for synovitis, deformity, tenderness, deformity with the exception of: Overall improvement in previously noted pannus formation/fullness of the MCP joints though does have some mild crepitus and tenderness of the bilateral wrists,right greater than left. There is some fullness and warmth of the left ankle in comparison to the right. No other evidence of peripheral dactylitis or synovitis. She does have diffuse soft tissue tender points consistent with active myofascial pain. Crepitus of the knees bilaterally with full rangeof motion. Labs: Lab Results Component Value Date WBC 3.3 (L) 02/25/2022 RBC 3.85 (L) 02/25/2022 Hemoglobin 12.3 02/25/2022 HCT 36.7 02/25/2022 MCV 95.3 02/25/2022 RDW 13.0 02/25/2022 Platelets 147 (L) 02/25/2022 Lab Results Component Value Date AST (SGOT) 35 02/25/2022 , Lab Results Component Value Date ALT (SGPT) 33 02/25/2022 Lab Results Component Value Date Creatinine 0.80 02/25/2022 Lab Results Component Value Date Sedimentation Rate [...] hiatus hernia. ASSESSMENT/PLAN: # SLE # myofascial pain # high-risk medication use # long-term glucocorticoid use # OA multiple sites Ms. Em is a very pleasant 51-year-old female presenting today for follow-up. We discussed the following below: 1. History of systemic lupus erythematosus. Initially diagnosed at the [facility] in 2011. Historyof positive BRIJESH and double-stranded DNA, though since sequence serologies including BRENDA antibodies and double-stranded DNA have been unremarkable. Initial symptoms presented with photosensitivity, fatigue, arthralgias, history of hematologic involvement. From a lupus standpoint, she denies any recent significant flares. She has been in the sun this summer and has some erythema of the arms. Reviewed the importance of sun protection. She continues to tolerate hydroxychloroquine 200 mg b.i.d. well. She has her eye exam scheduled for December 2022. Given our fax number to have the results faxed us when she has her testing done. She has been dealing with a lot of pain symptoms over the summer and does appear to have a mild inflammatory arthritis flare involving the wrists and left ankle. I recommend that we do a short prednisone taper, increase to 30 mg daily x3 days then 20 mg daily x3 days then 10 mg daily x3 days then back to baseline 3 mg daily. Encouraged to continue leflunomide 20 mg daily. She did have her lupus monitoring blood work done on November 11 and we reviewed today that her complement levels are normal, inflammatory markers are normal, urine protein ratio was normal, double-stranded DNA is negative. This is all very reassuring. Will plan on continued follow-up every 3months. 2. Myofascial pain. Continues to have findings consistent with active fibromyalgia. She has been doing pool therapy and finds this very beneficial. We also had previously discussed acupuncture, additional body work. She is now on Lyrica which is being managed by her primary care provider. We also reviewed consideration of duloxetine which she has been prescribed in the past but is unsure if she had tried this. We reviewed that not only could this be beneficial for fibromyalgia but also her chronic osteoarthritis symptoms as well. 3. Long-term glucocorticoid use. Most recent DXA scan was done at [facility] in September 2020 which showed evidence of normal bone density. Given her prolonged glucocorticoid use as suggest that we repeat this in 2-3 years, will plan on repeat in October 2023. Encouraged to continue adequate calcium and vitamin-D intake as well as weight-bearing exercise. 4. Osteoarthritis of multiple sites. She follows with Orthopedics and has done glucocorticoid injections for the knees. She notes that she needs bilateral knee replacements but is waiting on timing for this. Likely planning for next summer. Encouraged to continue follow-up as planned. Will plan on follow-up in 3 months. Patient advised to call clinic if symptoms change or worsen or if new symptoms develop. All of the patient's questions were answered to the best of my ability. Billing based on: complexity. Tracey Marino MD [facility] documented in this encounter Plan of Treatment Upcoming Encounters Date Type Department Care Team (Late st Contact Info) Description 08/03/2023 3:00 PM CDT Appointment [facility] [address] [place], [place] [id number] Tracey Marino MD [address] [place] [address] Scheduled Orders Name Type Priority Associated Diagnoses Orde r Schedule Creatinine / GFR (every 3 months) Lab Routine Other systemic lupus erythematosus with other organ involvement (HRC) Every 3 Months for 4 Occurrences starting 11/25/2022 until 11/26/2023, 1 completed documented as of this encounter Results * Creatinine / GFR (every 3 months) (11/25/2022 3:47 PM CDT) [facility] Creatinine 1.00 0.55 - 1.02 mg/dL 11/25/2022 6:15 PM CDT [facility] GFR, Estimated >60 >60 mL/min/1.7 3m2 11/25/2022 6:15 PM CDT [facility] Blood Venipuncture / Unknown 11/25/2022 3:47 PM CDT 11/25/2022 3:47 PM CDT Tracey Marino MD LAB_1 [facility] [address] [place] [address], [facility] [phone] documented in this encounter Visit Diagnoses Diagnosis Other systemic lupus erythematosus with other organ involvement (HRC)- Primary Inflammatory arthritis Unspecified inflammatory polyarthropathy Myofascial pain Mylagia and myositis, unspecified Osteoarthritis of multiple joints, unspecified osteoarthritis type 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
--- OUTSIDE RECORDS SUMMARY | 2023-06-21 09:26 | XMS_ITS | Encounter Summary ---
Author Name Unknown Organization [facility] Address [address] [address] Care Team Providers Care Cushion Worker Name Role Phone Joyce Wilson MD Primary Care Provider [phone] Encounter Details Date Type Department Care Team (Late st Contact Info) Description 11/11/2022 1:50 PM CDT Lab Visit [facility] [address] [place], [place] [phone] Other systemic lupus erythematosus with other organ [...] Info) Description 08/03/2023 3:00 PM CDT Appointment [facility] [address] [place], [place] [phone] Tracey Marino MD [address] [place] [phone] documented as of this encounter Procedures Procedure Name Priority Date/Time Associated Diagnosis Comments URINALYSIS ROUTINE, MICRO/CULTURE IF POS Routine 11/11/2022 12:03 PM CDT Other systemic lupus erythematosus with other organ involvement (HRC) 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) TP/CREA RATIO, URINE Routine 11/11/2022 12:03 PM CDT Other systemic lupus erythematosus with other organ involvement (HRC) 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) ANTI-DS DNA ANTIBODY (BRITANY ASSAY) Routine 11/11/2022 12:00 PM CDT Other systemic lupus erythematosus with other organ involvement (HRC) 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) C4 COMPLEMENT Routine 11/11/2022 12:00 PM CDT Other systemic lupus erythematosus with other organ involvement (HRC) 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00 - 0.20 11/11/2022 6:07 PM CDT [facility] Total Protein, Urine, Random 2 0 - 14 mg/dL 11/11/2022 6:07 PM CDT [facility] Creatinine, Urine, Random 21 >20 mg/dL mg/dL 11/11/2022 6:07 PM CDT [facility] Urine URINE SPECIMEN COLLECTION, CLEAN CATCH / Unknown Non-blood Collection / Unknown 11/11/2022 12:03 PM CDT 11/11/2022 12:03 PM CDT Narrative [facility] - 11/11/2022 6:07 PM CDT Low urine creatinine values coupled with low urine protein values can artifactually increase the urine protein/creatinine results. Correlate results of ratio with creatinine results. Tracey Marino MD LAB_1 [facility] [address] [employer] [address] * (ABNORMAL) Urinalysis Routine, Micro/Culture if Pos: Clean Catch (11/11/2022 12:03 PM CDT) Urine Culture Comment Urinalysis results do not meet criteria for urine culture reflex. 11/11/2022 12:05 PM [facility] Urine Color Straw 11/11/2022 12:05 PM [facility] Urine Clarity Clear Clear 11/11/2022 12:05 PM [facility] Specific [place], Urine <=1.005(A) 1.005 - 1.030 11/11/2022 12:05 PM [facility] PH Urine 6.5 5.0 - 8.0 11/11/2022 12:05 PM [facility] Protein, Urine Qual (mg/dL) Negative Neg/Trace 11/11/2022 12:05 PM [facility] Glucose Urine Qual (mg/dL) Negative Negative 11/11/2022 12:05 PM [facility] Ketones, Urine (mg/dL) Negative Negative 11/11/2022 12:05 PM [facility] Urobilinogen, Urine (EU/dL) 0.2 <2.0 11/11/2022 12:05 PM [facility] Bilirubin Urine Negative Negative 11/11/2022 12:05 PM [facility] Blood, Urine Negative Neg/Trace 11/11/2022 12:05 PM [facility] Nitrite Urine Negative Negative 11/11/2022 12:05 PM [facility] Leukocyte Est. Negative Negative 11/11/2022 12:05 PM CDT [facility] Urine Source Clean Catch 11/11/2022 12:05 PM CDT [facility] Urine URINE SPECIMEN COLLECTION, CLEAN CATCH / Unknown Non-blood Collection / Unknown 11/11/2022 12:03 PM CDT 11/11/2022 12:03 PM CDT Tracey Marino MD LAB_1 Performing Organization Address [facility] Co de Phone Number [facility] [address] [place] [address], [facility] [phone] * C-Reactive Protein (11/11/2022 12:00 PM CDT) Pathologist [facility] C-Reactive Protein <0.5 0.0 - 0.7 mg/dL 11/11/2022 3:20 PM CDT [facility] Blood Venipuncture / Unknown 11/11/2022 12:00 PM CDT 11/11/2022 12:00 PM CDT Tracey Marino MD LAB_1 Performing Organization Address [facility] de Phone Number [facility] [id number] [place] [phone], [facility] [phone] * ESR (11/11/2022 12:00 PM CDT) Pathologist [facility] Sedimentation Rate 11 0 - 20 mm/hr 11/11/2022 12:40 PM CDT [facility] Blood Venipuncture / Unknown 11/11/2022 12:00 PM CDT 11/11/2022 12:00 PM CDT Tracey Marino MD LAB_1 Performing Organization Address [facility] de Phone Number [facility] [address] [place] [address], [facility] [phone] * C4 Complement (11/11/2022 12:00 PM CDT) Pathologist [facility] C4 Complement 25.0 15.0 - 57.0 mg/dL 11/11/2022 6:26 PM CDT [facility] Blood Venipuncture / Unknown 11/11/2022 12:00 PM CDT 11/11/2022 12:00 PM CDT Tracey Marino MD LAB_1 Performing Organization Address [facility] Phone Number [facility] [address] [place] [address] * C3 Complement (11/11/2022 12:00 PM CDT) C3 Complement 94 83 - 193 mg/dL 11/11/2022 6:26 PM CDT [facility] Blood Venipuncture / Unknown 11/11/2022 12:00 PM CDT 11/11/2022 12:00 PM CDT Tracey Marino MD LAB_1 Performing Organization Address [facility] Phone Number [facility] [address] [place] [address] * DNA Double Stranded Antibody (Britany) (11/11/2022 12:00 PM CDT) Pathologist [facility] Anti-dsDNA Ab (Britany Assay) <8.0 <8.0 IU/mL 11/19/2022 11:06 PM CDT [facility] Blood Venipuncture / Unknown 11/11/2022 12:00 PM CDT 11/11/2022 12:00 PM CDT Narrative [facility] - 11/19/2022 11:06 PM CDT Test(s) [id number] Ab by Britany(RDL) was developed and its performance characteristics determined by [facility]. It has not been cleared or approved by the Food and Drug Administration. 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
--- OUTSIDE RECORDS SUMMARY | 2023-06-21 09:26 | XMS_ITS | Encounter Summary ---
Author Name Unknown Organization [facility] Address [address], [place] [address] Care Team Providers Care Him Clerk Name Role Phone Joyce Wilson MD Primary Care Provider [phone] Reason for Visit * Reason Comments Refill Encounter Details Date Type Department Care Team (Late st Contact Info) Description 07/29/2022 Refill [place] [address] [facility] [address] [facility] [place], [place] [phone] Venancio Drummond MD [address] [place], [place] [phone] Refill Social History Tobacco Use Types Packs/Day [...] Nursing Notes * Sirena Worrell RN - 07/29/2022 8:29 AM CDT [place]: 02/25/22 [place]: 08/11/22 [facility] DOS:08/17/21 No evidence of plaquenil toxicity Renewed medication per medication refill standing order. Requested Prescriptions Signed Prescriptions Disp Refills hydroxychloroquine (PLAQUENIL) 200 MG tablet 180 Tablet 0 Sig: TAKE ONE TABLET BY MOUTH TWICE A DAY Authorizing Provider: VENANCIO DRUMMOND Ordering User: SIRENA WORRELL documented in this encounter Plan of Treatment Upcoming Encounters Date Type Department Care Team (Late st Contact Info) Description 08/03/2023 3:00 PM CDT Appointment [facility] [address] [place] [address] Tracey Marino MD [facility] [place], [place] [phone] documented as of this encounter Visit Diagnoses Not on filedocumented in this encounter Care Teams Him Clerk Relationship Specialty Start Date End Date Joyce Wilson MD [address] [place] [address] PCP - General 06/08/13 documented as of this encounter
--- OUTSIDE RECORDS SUMMARY | 2023-06-21 09:26 | XMS_ITS | Encounter Summary ---
Author Name Unknown Organization [facility] Address [address] [address] Care Team Providers Care Compressed Yeast Supervisor Name Role Phone Joyce Wilson MD Primary Care Provider Reason for Visit * Reason Comments Refill Encounter Details Date Type Department Care Team (Late st Contact Info) Description 10/21/2022 Refill [facility] [address] [place], [place] [phone] Tracey Brown MD [address] [place] [address] Refill Social History Tobacco Use Types [...] Nursing Notes * Ree Martin RN - 10/21/2022 10:02 AM CDT Last visit: 02/25/22 Future visit: 11/25/22 Lab Results Component Value Date WBC 3.3 (L) 02/25/2022 RBC 3.85 (L) 02/25/2022 Hemoglobin 12.3 02/25/2022 HCT 36.7 02/25/2022 MCV 95.3 02/25/2022 RDW 13.0 02/25/2022 Platelets 147 (L) 02/25/2022 Lab Results Component Value Date Creatinine 0.80 02/25/2022 Lab Results Component Value Date ALT (SGPT) 33 02/25/2022 Called patient as she is over due for labs. She states she will go and get them done this week. Giving courtesy 30 day refill. Renewed medication per medication refill standing order. Requested Prescriptions Signed Prescriptions Disp Refills leflunomide (ARAVA) 20 MG tablet 30 Tablet 0 Sig: Take 1 Tablet (20 mg) by mouth daily. LABS NEEDED FOR FURTHER REFILLS Authorizing Provider: TRACEY BROWN Ordering User: REE MARTIN documented in this encounter Plan of Treatment Upcoming Encounters Date Type Department Care Team (Late st Contact Info) Description 08/03/2023 3:00 PM CDT Appointment [facility] [address] [place], [place] [phone] Tracey Brown MD [address] [place] [phone] documented as of this encounter Visit Diagnoses Diagnosis Other systemic lupus erythematosus with other organ involvement (HRC) Inflammatory arthritis Unspecified inflammatory polyarthropathy documented in this encounter Care Teams Compressed Yeast Supervisor Relationship Specialty Start Date End Date Joyce Wilson MD [address] [place] [address] PCP - General 06/08/13 documented as of this encounter
--- OUTSIDE RECORDS SUMMARY | 2023-06-21 09:26 | XMS_ITS | Encounter Summary ---
Author Name Unknown Organization [facility] Address [address], [place] [address] Care Team Providers Care Lining Setter Name Role Phone Joyce Wilson MD Primary Care Provider [phone] Reason for Visit * Reason Comments Refill Encounter Details Date Type Department Care Team (Late st Contact Info) Description 10/29/2022 Refill [facility] [address] [place], [place] [address] Tracey Brown MD [address] [place] [phone] Refill Social History Tobacco Use Types [...] Nursing Notes * Ree Martin RN - 10/29/2022 2:54 PM CDT Patient states she is taking 3 mg daily. Renewed medication per medication refill standing order. Requested Prescriptions Signed Prescriptions Disp Refills predniSONE (DELTASONE) 1 MG tablet 270 Tablet 0 Sig: Take 3 Tablets (3 mg) by mouth daily. Authorizing Provider: TRACEY BROWN Ordering User: REE MARTIN * Ree Martin RN - 10/29/2022 2:46 PM CDT Last visit: 02/25/22 Future visit: 11/25/22 Left message for patient to see what dose of prednisone they are currently at. documented in this encounter Plan of Treatment Upcoming Encounters Date Type Department Care Team (Late st Contact Info) Description 08/03/2023 3:00 PM CDT Appointment [facility] [address] [place] [address] Tracey Brown MD [address] [place] [phone] documented as of this encounter Visit Diagnoses Not on filedocumented in this encounter Care Teams Lining Setter Relationship Specialty Start Date End Date Joyce Wilson MD [address] [place] [address] PCP - General 06/08/13 documented as of this encounter
== END 2023-06-21 09:17 | disposition home or self-care (01) ==
LOC: INJ CL 09:17
PROVIDERS: PCP Physician Assistant; Visit Provider Family Medicine
DX: M54.16 Radiculopathy, lumbar region (principal)
CPT/HCPCS: 64483; 64484; J1100; Q9966

== ENCOUNTER 2023-09-06 09:00 | Outpatient (CLI) | payer BC, SELFPAY ==
--- OUTSIDE RECORDS SUMMARY | 2023-09-06 09:03 | XMS_ITS | Clinical Summary ---
[facility] [address], [place] [address] Care Team Providers Care Bale Breaker Operator Name Role Phone Joyce Wilson MD Primary Care Provider [phone] Source Comments You are receiving this document as you are listed as the primary care provider,follow-up provider, or the patient has been referred to you for consultation.This is in compliance with the Medicare and[facility] EHR Incentive Program,which states Providers who transition their patient to another setting of careor provider of care or refers their patient to another provider of care shouldprovide summary care record for each transition of care or referral. [facility] Allergies No known active allergies Medications Medication Sig Dispensed Refills Start Date End Date Status Carboxymethylcellulo se Sodium (REFRESH LIQUIGEL OP) Place 1 drop into both eyes 4 times daily as needed (Use 3-4 times daily). 08/16/2013 Active levothyroxine (AKA SYNTHROID) 150 MCG tablet Take 1 Tablet (150 mcg) by mouth daily. 08/16/2013 Active nystatin (MYCOSTATIN) 048436 UNIT/GM powderIndications:Ra sh and nonspecific skin eruption Apply to affected [...] fold areas. 60 g 11 04/30/2019 Active oxyBUTYnin (DITROPANXL) 10 MG 24 hour release tablet Take 1 Tablet (10 mg) by mouth daily. Active pregabalin (LYRICA) 100 MG capsule Take 1 Capsule (100 mg) by mouth two times a day. 200 mg pm 03/23/2023 Active celecoxib (CELEBREX) 100 MG capsule TAKE ONE CAPSULE BY MOUTH TWICE A DAY 120 Capsule 1 07/29/2023 Active famotidine (PEPCID) 40 MG tablet Take 1 Tablet (40 mg) by mouth daily. Active predniSONE (DELTASONE) 1 MG tablet Take 3 Tablets (3 mg) by mouth daily. 270 Tablet 1 08/03/2023 Active leflunomide (ARAVA) 20 MG tabletIndications:In flammatory arthritis, osteoarthritis,Other systemic lupus erythematosus with other organ involvement (HRC) Take 1 Tablet (20 mg) by mouth daily. 90 Tablet 1 08/03/2023 Active hydroxychloroquine (PLAQUENIL) 200 MG tablet Take 1 Tablet (200 mg) by mouth two times a day. 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) 08/03/2023 3:00 PM CDT Office Visit [facility] [address] [place] [address] Tracey Marino MD Other systemic lupus erythematosus with other organ involvement (HRC) (Primary Dx); Inflammatory arthritis; Fibromyalgia; Osteoarthritis of multiple joints, unspecified osteoarthritis type; 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); 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 07/29/2023 Refill [facility] [id number] [place] [id number] Tracey Marino MD Refill from Last 3 Months Immunizations Name Administration Dates Next Due DTaP 12/16/2005 Flu Vac (3+ yrs) 02/08/2020, 3,03/24/2010,2007,04/13/2007 Flu Vac Preserv Free (3+yrs) 04/02/2008 HepA Adult (19+ yrs) 04/02/2008,05/11/2007 Influenza ([facility] Only) (Flul aval Quad 0.5, 3+ yrs) 02/07/2020,02/11/2016 Influenza (Flucelvax), Prese rv Free QIV 03/31/2023 Influenza IIV4 (Quadrivalent ) 0.5mL (61131) 01/22/2019,01/27/2017,02/04/2016,2014 Influenza, Unspecified Formulation 02/19,02/08/2020,04/21/2013,2009 Moderna Monovalent [...] Sign Reading Time Taken Comments Blood Pressure 126/71 08/03/2023 2:55 PM CDT Pulse 77 08/03/2023 2:55 PM CDT Temperature 36.6 ??C (97.8 ??F) 10/29/2020 3:46 PM CD T Respiratory Rate 20 06/14/2014 9:40 AM SENIOR JAVA PROGRAMMER ANALYST Oxygen Saturation - - Inhaled Oxygen Concentration - - Weight 93.4 kg (206 lb) 08/03/2023 2:55 PM CDT Height - - Body Mass Index - - Plan of Treatment Upcoming Encounters Date Type Department Care Team (Late st Contact Info) Description 11/30/2023 2:30 PM CDT Appointment [facility] [address] [place], [place] [phone] Tracey Marino MD [address] [place] [phone] Health Maintenance Due Date Last Done Comments [...] Procedure Name Priority Date/Time Associated Diagnosis Comments TP/CREA RATIO, URINE Routine 08/03/2023 3:53 PM CDT Other systemic lupus erythematosus with other organ involvement (HRC) URINALYSIS ROUTINE, MICRO/CULTURE IF POS Routine 08/03/2023 3:53 PM CDT Other systemic lupus erythematosus with other organ involvement (HRC) COMPLETE BLOOD COUNT-W/DIFF Routine 08/03/2023 3:37 PM CDT Other systemic lupus erythematosus with other organ involvement (HRC) 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) VITAMIN D 25-HYDROXY, TOTAL Routine 08/03/2023 3:37 PM CDT Other systemic lupus erythematosus with other organ involvement (HRC) C-REACTIVE PROTEIN Routine 08/03/2023 3: 37 PM CDT Other systemic lupus erythematosus with other organ involvement (HRC) SEDIMENTATION RATE (ESR) Routine 08/03/2023 3:37 PM CDT Other systemic lupus erythematosus with other organ involvement (HRC) C4 COMPLEMENT Routine 08/03/2023 3:37 PM CDT Other systemic lupus erythematosus with other organ involvement (HRC) C3 COMPLEMENT Routine 08/03/2023 3:37 PM CDT Other systemic lupus erythematosus with other organ involvement (HRC) ANTI-DS DNA ANTIBODY (BRITANY ASSAY) Routine 08/03/2023 3:37 PM CDT Other systemic lupus erythematosus with other organ involvement (HRC) CREATININE / GFR Routine 08/03/2023 3:37 PM CDT Other systemic lupus erythematosus with other organ involvement (HRC) CBC AND DIFFERENTIAL PANEL Routine 08/03/2023 3:37 PM CDT Other systemic lupus erythematosus with other organ involvement (HRC) 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 08/03/2023 4:03 PM [facility] Urine Color Straw 08/03/2023 4:03 PM [facility] Urine Clarity Clear Clear 08/03/2023 4:03 PM [facility] Specific West, Urine 1.010 1.005 - 1.030 08/03/2023 4:03 PM [facility] PH Urine 7.0 5.0 - 8.0 08/03/2023 4:03 PM [facility] Protein, Urine Qual (mg/dL) Negative Neg/Trace 08/03/2023 4:03 PM [facility] Glucose Urine Qual (mg/dL) Negative Negative 08/03/2023 4:03 PM [facility] Ketones, Urine (mg/dL) Negative Negative 08/03/2023 4:03 PM [facility] Urobilinogen, Urine (EU/dL) 0.2 <2.0 08/03/2023 4:03 PM CDT [facility] Bilirubin Urine Negative Negative 08/03/2023 4:03 PM CDT [facility] Blood, Urine Negative Neg/Trace 08/03/2023 4:03 PM CDT [facility] Nitrite Urine Negative Negative 08/03/2023 4:03 PM CDT [facility] Leukocyte Est. Negative Negative 08/03/2023 4:03 PM CDT [facility] Urine Source Clean Catch 08/03/2023 4:03 PM CDT [facility] Urine URINE SPECIMEN COLLECTION, CLEAN CATCH / Unknown Non-blood Collection / Unknown 08/03/2023 3:53 PM CDT 08/03/2023 3:53 PM CDT Tracey Marino MD LAB_1 Performing Organization Address [facility]/ZIP Co de Phone Number [facility] [address] [place] [address], [facility] * TP/Crea Ratio, Urine (08/03/2023 3:53 PM CDT) [facility] TP/Creat Ratio, Urine Random 08/03/2023 9:00 PM T [facility] Comment:Unable to calculate, raw result outside instrument reportable range. Total Protein, Urine, Random <1 0 - 14 mg/dL 08/03/2023 9:00 PM CDT [facility] Creatinine, Urine, Random 19 >20 mg/dL mg/dL 08/03/2023 9:00 PM [facility] Urine URINE SPECIMEN COLLECTION, CLEAN CATCH / Unknown Non-blood Collection / Unknown 08/03/2023 3:53 PM CDT 08/03/2023 3:53 PM CDT Narrative [facility] - 08/03/2023 9:00 PM CDT Low urine creatinine values coupled with low urine protein values can artifactually increase the urine protein/creatinine results. Correlate results of ratio with creatinine results. Tracey Marino MD LAB_1 Performing Organization Address City/[facility]/ZIP Co de Phone Number [facility] [address] [place], [place] [address] * DNA Double Stranded Antibody (Britany) (08/03/2023 3:37 PM CDT) Pathologist [facility] Anti-dsDNA Ab (Britany Assay) <8.0 <8.0 IU/mL 08/11/2023 4:07 PM CDT [facility] Blood Venipuncture / Unknown 08/03/2023 3:37 PM CDT 08/03/2023 3:37 PM CDT Narrative [facility] - 08/11/2023 4:07 PM CDT Test(s) [id number] Ab by Britany(RDL) was developed and its performance characteristics determined by [facility]. It has not been cleared or approved by the Food and Drug Administration. Performed at: ??01 - [facility] [address] [place] [address] ??[id number] Healthcare Administrative Assistant: Puneet French MD, Phone: ??[phone] Tracey Marino MD LAB_1 Performing Organization Address City/[facility]/ZIP Co de Phone Number [facility] [address] [address] [place] [address] * Vitamin D 25-Hydroxy, Total (08/03/2023 3:37 PM CDT) Pathologist [facility] Vitamin D, 25-OH, Total 36 30 - 80 ng/mL 08/03/2023 9:36 PM CDT [facility] Blood Venipuncture / Unknown 08/03/2023 3:37 PM CDT 08/03/2023 3:37 PM CDT Tracey Marino MD LAB_1 [facility] [address] * Creatinine / GFR (every 3 months) (08/03/2023 3:37 PM CDT) Pathologist [facility] Creatinine 0.87 0.55 - 1.02 mg/dL 08/03/2023 4:55 PM CDT [facility] GFR, Estimated >60 >60 mL/min/1.7 3m2 08/03/2023 4:55 PM [facility] Blood Venipuncture / Unknown 08/03/2023 3:37 PM CDT 08/03/2023 3:37 PM CDT Tracey Marino MD LAB_1 [facility] [address] [place] [address] * (ABNORMAL) Complete Blood Count-W/Diff (08/03/2023 3:37 PM CDT) WBC 3.6 3.5 - 10.5 x10(9)/L 08/03/2023 3:50 PM [facility] RBC 3.88(L) 3.90 - 5.03 x10(12)/L 08/03/2023 3:50 PM [facility] Hemoglobin 12.1 12.0 - 15.5 g/dL 08/03/2023 3:50 PM [facility] HCT 35.8 34.9 - 44.5 % 08/03/2023 3:50 PM [facility] MCV 92.3 80.0 - 100.0 fL 08/03/2023 3:50 PM [facility] MCH 31.2 27.6 - 33.3 pg 08/03/2023 3:50 PM [facility] MCHC 33.8 31.5 - 35.2 g/dL 08/03/2023 3:50 PM [facility] RDW 13.4 11.9 - 15.5 % 08/03/2023 3:50 PM [facility] Platelets 129(L) 150 - 450 x10(9)/L 08/03/2023 3:50 PM [facility] Automated NRBC 0 <=0 /100 WBC 08/03/2023 3:50 PM [facility] Neutrophil Absolute 2.3 1.7 - 7.0 10(9)/L 08/03/2023 3:50 PM [facility] Lymphocyte Absolute 0.8(L) 1.0 - 4.8 10(9)/L 08/03/2023 3:50 PM CDT [facility] Monocyte Absolute 0.4 0.2 - 0.9 10(9)/L 08/03/2023 3:50 PM CDT [facility] Eosinophil Absolute 0.0 0.0 - 0.5 10(9)/L 08/03/2023 3:50 PM CDT [facility] Basophil Absolute 0.1 0.0 - 0.3 10(9)/L 08/03/2023 3:50 PM CDT [facility] Immature Granulocyte % 0.3 0.0 - 0.5 % 08/03/2023 3:50 PM CDT [facility] Blood Venipuncture / Unknown 08/03/2023 3:37 PM CDT 08/03/2023 3:37 PM CDT Tracey Marino MD LAB_1 Performing Organization Address City/[facility]/ZIP Co de Phone Number [facility] [address] [place] [address] * C4 Complement (08/03/2023 3:37 PM CDT) C4 Complement 24.0 15.0 - 57.0 mg/dL 08/03/2023 9:04 PM CDT [facility] Blood Venipuncture / Unknown 08/03/2023 3:37 PM CDT 08/03/2023 3:37 PM CDT Tracey Marino MD LAB_1 [facility] [address] [place], [place] [phone] [place] [address] * C3 Complement (08/03/2023 3:37 PM CDT) C3 Complement 106 83 - 193 mg/dL 08/03/2023 9:04 PM CDT [facility] Blood Venipuncture / Unknown 08/03/2023 3:37 PM CDT 08/03/2023 3:37 PM CDT Tracey Marino MD LAB_1 Performing Organization Address [facility] Co de Phone Number [facility] [address] * C-Reactive Protein (08/03/2023 3:37 PM CDT) C-Reactive Protein <0.5 0.0 - 0.5 mg/dL 08/03/2023 4:55 PM CDT [facility] Blood Venipuncture / Unknown 08/03/2023 3:37 PM CDT 08/03/2023 3:37 PM CDT Tracey Marino MD LAB_1 Performing Organization Address [facility] Phone Number [facility] [address] [place] [phone] * AST (every 3 months) (08/03/2023 3:37 PM CDT) AST (SGOT) 37 10 - 40 U/L 08/03/2023 4:55 PM CDT [facility] Blood Venipuncture / Unknown 08/03/2023 3:37 PM CDT 08/03/2023 3:37 PM CDT Tracey Marino MD LAB_1 Performing Organization Address [facility] Phone Number [facility] [address] [place] [address] * ESR (08/03/2023 3:37 PM CDT) Sedimentation Rate 10 0 - 20 mm/hr 08/03/2023 6:29 PM CDT [facility] Blood Venipuncture / Unknown 08/03/2023 3:37 PM CDT 08/03/2023 3:37 PM CDT Tracey Marino MD LAB_1 Performing Organization Address [facility] de Phone Number [place] [address] [place] [address], [facility] from Last 3 Months or Most Recently Relevant to Health Maintenance Care Teams Bale Breaker Operator Relationship Specialty Start Date End Date Joyce Wilson MD [address] [place] [address] [place] [address] PCP - General 06/08/13
--- OUTSIDE RECORDS SUMMARY | 2023-09-06 09:03 | XMS_ITS | Encounter Summary ---
Author Name Unknown Organization [facility] Address [address], [place] [address] Care Team Providers Care Basketball Assembler Name Role Phone Joyce Wilson MD Primary Care Provider [phone] Encounter Details Date Type Department Care Team (Late st Contact Info) Description 08/03/2023 3:30 PM CDT Lab Visit [facility] [address] [place], [place] [phone] Other systemic lupus erythematosus with other organ [...] Info) Description 11/30/2023 2:30 PM CDT Appointment [facility] [address] [place], [place] [phone] Tracey Marino MD [address] [place] [phone] documented as of this encounter Procedures Procedure Name Priority Date/Time Associated Diagnosis Comments URINALYSIS ROUTINE, MICRO/CULTURE IF POS Routine 08/03/2023 3:53 PM CDT Other systemic lupus erythematosus with other organ involvement (HRC) TP/CREA RATIO, URINE Routine 08/03/2023 3:53 PM CDT Other systemic lupus erythematosus with other organ involvement (HRC) CBC AND DIFFERENTIAL PANEL Routine 08/03/2023 3:37 PM CDT Other systemic lupus erythematosus with other organ involvement (HRC) 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) ANTI-DS DNA ANTIBODY (BRITANY ASSAY) Routine 08/03/2023 3:37 PM CDT Other systemic lupus erythematosus with other organ involvement (HRC) VITAMIN D 25-HYDROXY, TOTAL Routine 08/03/2023 3:37 PM CDT Other systemic lupus erythematosus with other organ involvement (HRC) CREATININE / GFR Routine 08/03/2023 3:37 PM CDT Other systemic lupus erythematosus with other organ involvement (HRC) COMPLETE BLOOD COUNT-W/DIFF Routine 08/03/2023 3:37 PM CDT Other systemic lupus erythematosus with other organ involvement (HRC) 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) C4 COMPLEMENT Routine 08/03/2023 3:37 PM CDT Other systemic lupus erythematosus with other organ involvement (HRC) C3 COMPLEMENT Routine 08/03/2023 3:37 PM CDT Other systemic lupus erythematosus with other organ involvement (HRC) C-REACTIVE PROTEIN Routine 08/03/2023 3: 37 PM CDT Other systemic lupus erythematosus with other organ involvement (HRC) AST Routine 08/03/2023 3:37 PM CDT Other systemic lupus erythematosus with other organ involvement (HRC) 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 Total Protein, Urine, Random <1 0 - 14 mg/dL 08/03/2023 9:00 PM CDT [facility] Creatinine, Urine, Random 19 >20 mg/dL mg/dL 08/03/2023 9:00 PM CDT [facility] Urine URINE SPECIMEN COLLECTION, CLEAN CATCH / Unknown Non-blood Collection / Unknown 08/03/2023 3:53 PM CDT 08/03/2023 3:53 PM CDT Narrative [facility] - 08/03/2023 9:00 PM CDT Low urine creatinine values coupled with low urine protein values can artifactually increase the urine protein/creatinine results. Correlate results of ratio with creatinine results. Tracey Marino MD LAB_1 [facility] [address] * Urinalysis Routine, Micro/Culture if Pos: Clean Catch (08/03/2023 3:53 PM CDT) Pathologist [facility] Urine Culture Comment Urinalysis results do not meet criteria for urine culture reflex. 08/03/2023 4:03 PM [facility] Urine Color Straw 08/03/2023 4:03 PM [facility] Urine Clarity Clear Clear 08/03/2023 4:03 PM [facility] Specific [place], Urine 1.010 1.005 - 1.030 08/03/2023 4:03 PM [facility] PH Urine 7.0 5.0 - 8.0 08/03/2023 4:03 PM [facility] Protein, Urine Qual (mg/dL) Negative Neg/Trace 08/03/2023 4:03 PM [facility] Glucose Urine Qual (mg/dL) Negative Negative 08/03/2023 4:03 PM [facility] Ketones, Urine (mg/dL) Negative Negative 08/03/2023 4:03 PM [facility] Urobilinogen, Urine (EU/dL) 0.2 <2.0 08/03/2023 4:03 PM [facility] Bilirubin Urine Negative Negative 08/03/2023 4:03 PM [facility] Blood, Urine Negative Neg/Trace 08/03/2023 4:03 PM [facility] Nitrite Urine Negative Negative 08/03/2023 4:03 PM [facility] Leukocyte Est. Negative Negative 08/03/2023 4:03 PM [facility] Urine Source Clean Catch 08/03/2023 4:03 PM [facility] Urine URINE SPECIMEN COLLECTION, CLEAN CATCH / Unknown Non-blood Collection / Unknown 08/03/2023 3:53 PM CDT 08/03/2023 3:53 PM CDT Tracey Marino MD LAB_1 [facility] [address] [place] [phone] * (ABNORMAL) Complete Blood Count-W/Diff (08/03/2023 3:37 PM CDT) WBC 3.6 3.5 - 10.5 x10(9)/L 08/03/2023 3:50 PM [facility] RBC 3.88(L) 3.90 - 5.03 x10(12)/L 08/03/2023 3:50 PM CDT [facility] Hemoglobin 12.1 12.0 - 15.5 g/dL 08/03/2023 3:50 PM CDT [facility] HCT 35.8 34.9 - 44.5 % 08/03/2023 3:50 PM [facility] MCV 92.3 80.0 - 100.0 fL 08/03/2023 3:50 PM [facility] MCH 31.2 27.6 - 33.3 pg 08/03/2023 3:50 PM [facility] MCHC 33.8 31.5 - 35.2 g/dL 08/03/2023 3:50 PM [facility] RDW 13.4 11.9 - 15.5 % 08/03/2023 3:50 PM [facility] Platelets 129(L) 150 - 450 x10(9)/L 08/03/2023 3:50 PM [facility] Automated NRBC 0 <=0 /100 WBC 08/03/2023 3:50 PM [facility] Neutrophil Absolute 2.3 1.7 - 7.0 10(9)/L 08/03/2023 3:50 PM [facility] Lymphocyte Absolute 0.8(L) 1.0 - 4.8 10(9)/L 08/03/2023 3:50 PM [facility] Monocyte Absolute 0.4 0.2 - 0.9 10(9)/L 08/03/2023 3:50 PM [facility] Eosinophil Absolute 0.0 0.0 - 0.5 10(9)/L 08/03/2023 3:50 PM [facility] Basophil Absolute 0.1 0.0 - 0.3 10(9)/L 08/03/2023 3:50 PM [facility] Immature Granulocyte % 0.3 0.0 - 0.5 % 08/03/2023 3:50 PM [facility] Blood Venipuncture / Unknown 08/03/2023 3:37 PM CDT 08/03/2023 3:37 PM CDT Tracey Marino MD LAB_1 [facility] [address] [place] [address] * Vitamin D 25-Hydroxy, Total (08/03/2023 3:37 PM CDT) Vitamin D, 25-OH, Total 36 30 - 80 ng/mL 08/03/2023 9:36 PM CDT [facility] Blood Venipuncture / Unknown 08/03/2023 3:37 PM CDT 08/03/2023 3:37 PM CDT Tracey Marino MD LAB_1 [facility] [address] * C-Reactive Protein (08/03/2023 3:37 PM CDT) C-Reactive Protein <0.5 0.0 - 0.5 mg/dL 08/03/2023 4:55 PM [facility]T [facility] Blood Venipuncture / Unknown 08/03/2023 3:37 PM CDT 08/03/2023 3:37 PM CDT Tracey Marino MD LAB_1 Performing Organization Address [facility] Co de Phone Number [facility] [address] [place] [address] * ESR (08/03/2023 3:37 PM CDT) Sedimentation Rate 10 0 - 20 mm/hr 08/03/2023 6:29 PM CDT [facility] Blood Venipuncture / Unknown 08/03/2023 3:37 PM CDT 08/03/2023 3:37 PM CDT Tracey Marino MD LAB_1 Performing Organization Address [facility] de Phone Number [facility] [address] [place] [address] * C4 Complement (08/03/2023 3:37 PM CDT) C4 Complement 24.0 15.0 - 57.0 mg/dL 08/03/2023 9:04 PM CDT [facility] Blood Venipuncture / Unknown 08/03/2023 3:37 PM CDT 08/03/2023 3:37 PM CDT Tracey Marino MD LAB_1 Performing Organization Address [facility]/ZIP Co de Phone Number [facility] [address] * C3 Complement (08/03/2023 3:37 PM CDT) C3 Complement 106 83 - 193 mg/dL 08/03/2023 9:04 PM CDT [facility] Blood Venipuncture / Unknown 08/03/2023 3:37 PM CDT 08/03/2023 3:37 PM CDT Tracey Marino MD LAB_1 Performing Organization Address [facility] Co de Phone Number [facility] [address] * DNA Double Stranded Antibody (Britany) (08/03/2023 3:37 PM CDT) [facility] Anti-dsDNA Ab (Britany Assay) <8.0 <8.0 IU/mL 08/11/2023 4:07 PM CDT [facility] Blood Venipuncture / Unknown 08/03/2023 3:37 PM CDT 08/03/2023 3:37 PM CDT Narrative [facility] - 08/11/2023 4:07 PM CDT Test(s) [id number] Ab by Britany(RDL) was developed and its performance characteristics determined by [facility]. It has not been cleared or approved by the Food and Drug Administration. Performed at: ??01 - [facility] [address] [place] [address] ??[phone] Fill Plant Operator: Puneet French MD, Phone: ??[phone] Tracey Marino MD LAB_1 Performing Organization Address City/[facility]/ZIP Co de Phone Number [facility] [address] [place] [address] * Creatinine / GFR (every 3 months) (08/03/2023 3:37 PM CDT) Creatinine 0.87 0.55 - 1.02 mg/dL 08/03/2023 4:55 PM CDT [facility] GFR, Estimated >60 >60 mL/min/1.7 3m2 08/03/2023 4:55 PM CDT [facility] Blood Venipuncture / Unknown 08/03/2023 3:37 PM CDT 08/03/2023 3:37 PM CDT Tracey Marino MD LAB_1 Performing Organization Address [facility] de Phone Number [address] 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
--- OUTSIDE RECORDS SUMMARY | 2023-09-06 09:04 | XMS_ITS | Clinical Summary ---
Author Name Unknown Organization [facility] Address [place], [place] [address] Care Team Providers Care Lace Inspector Name Role Phone Selene Carranza Primary Care Provider [phone] Allergies No known active allergies Medications Medication Sig Dispensed Refills Start Date End Date Status hydroxychloroquine (PLAQUENIL) 200 mg tablet Take 1 tablet by mouth 2 times daily. 0 8 Active carboxymethylcellul ose (REFRESH PLUS) 0.5 % ophthalmic solution Place into the eye(s). Active calcium carbonate (CALTRATE) 600 mg calcium (1,500 mg) tabletIndications:O ther forms of systemic lupus erythematosus, unspecified organ involvement status (HC) Take 1 tablet by mouth 2 times daily with meals. 180 tablet 3 9 Active celecoxib (CELEBREX) 200 mg capsule Take 100 mg by mouth two times daily with meals. 9 Active cholecalciferol (Vitamin D) 1,000 unit capsuleIndications: Osteoporosis, unspecified osteoporosis type, unspecified pathological fracture presence Take 2 Capsules (2,000 units) by mouth once daily. 90 Capsule 3 2 Active ibuprofen (ADVIL; MOTRIN) 600 mg tabletIndications:R ight inguinal hernia Take 1 Tablet (600 mg) by mouth every 6 hours if needed for Pain. Maximum of 3200 mg in 24 hours. 30 Tablet 3 Active leflunomide (ARAVA) 20 mg tablet Take 20 mg by mouth once daily. 3 Active oxybutynin XL (DITROPAN XL) 10 mg CR tabletIndications:O AB (overactive bladder) Take 1 Tablet (10 mg) by mouth once daily. 90 Tablet 3 3 Active nystatin powder (MYCOSTATIN) powderIndications:C andidiasis, intertriginous Apply 1 Strip topically to affected area(s) three times daily. 60 g 2 3 Active durable medical equipment (DME)Indications:Loomis llux rigidus, right foot,Bunion, right,Hammertoe of right foot AIR SELECT, SHORT, MEDIUM, REF: [id number] 1 Each 3 Active durable medical equipment (DME)Indications:Loomis llux rigidus, right foot,Bunion, right,Hammertoe of right foot SQUARED TOE POST OP SHOE, SMALL, REF: [phone] 1 Each 3 Active famotidine (PEPCID) 40 mg tabletIndications:C hronic GERD Take 1 Tablet (40 mg) by mouth once daily. 90 Tablet 3 3 Active oxyCODONE (ROXICODONE) 5 mg immediate release tabletIndications:H allux rigidus, right foot,Bunion, right Take 1-2 Tablets (5-10 mg) by mouth every 4 hours if needed for Pain. 20 Tablet 3 Active pregabalin (LYRICA) 100 mg capsuleIndications: Neuropathic pain TAKE ONE CAPSULE BY MOUTH TWICE A DAY 180 Capsule 1 4 Active cyclobenzaprine (FLEXERIL) 10 mg tabletIndications:L umbar radiculopathy Take 1 Tablet (10 mg) by mouth 3 times daily if needed for Muscle Spasm. 21 Tablet 4 Active levothyroxine (SYNTHROID) 150 mcg tabletIndications:H ypothyroidism, postablative Take 1 Tablet (150 mcg) by mouth before breakfast. 30 Tablet 4 Active levothyroxine (SYNTHROID) 150 mcg tabletIndications:H ypothyroidism, postablative Take 1 Tablet (150 mcg) by mouth before breakfast. 90 Tablet 3 3 08/27/19 24 Discontinued Active Problems Problem Noted Date Diagnosed Date [...] Encounters Date Type Department Care Team Description 09/06/2023 Travel 08/27/2023 Refill [facility] [address] [place] [address] Selene Carranza PA Refill Request (Levothyroxine) 08/26/2023 Telephone [facility] [place] [address] [phone] Rc Nuñez MD Questions (upcoming surgery) 08/25/2023 Telephone [facility] [address] [place] [address] Migel Kaba MD Questions 08/23/2023 3:30 PM CDT - 08/23/2023 11:59 PM CDT Hospital Encounter [facility] [address] [place] [address] Nishant Colon, DPM Hilda Alcocer, PT 08/23/2023 Orders Only [facility] [address] [place] [address] Migel Kaba MD <No scans attached> 08/22/2023 2:58 PM CDT - 08/22/2023 11:59 PM CDT Hospital Encounter [facility] [address] [place] [address] Migel Kaba MD Foraminal stenosis of lumbar region; Lumbar radiculopathy; Herniated lumbar intervertebral disc; Spinal stenosis of lumbar region with neurogenic claudication 08/22/2023 Travel 08/16/2023 3:30 PM CDT - 08/16/2023 11:59 PM CDT Hospital Encounter [facility] [address] [place] [address] Nishant Colon DPM Hagy, Tia, PT 08/16/2023 Travel 08/10/2023 2:20 PM CDT Office Visit [facility] [address] [place] [id number] Migel Kaba MD Musculoskeletal Problem (Follow up back pain, MARITO 06/21/23) 08/10/2023 Travel 08/04/2023 3:45 PM CDT Office Visit [facility] [place] [address] [place] [phone] Nishant Colon DPM Post-op (Right foot, DOS 04/18/23, 3.5 months post op) 08/04/2023 Travel 07/19/2023 2:22 PM CDT - 07/19/2023 11:59 PM CDT Hospital Encounter [facility] [address] [place] [address] Nishant Colon DPM Hagy, Tia, PT S/P foot surgery, right; Hallux rigidus, right foot; Bunion, right 07/19/2023 Travel 07/12/2023 5:40 PM CDT - 07/12/2023 11:59 PM CDT Hospital Encounter [facility] [address] [place] [address] Earl Rodriguez PA Lumbar radiculopathy 07/12/2023 4:10 PM CDT Office Visit [facility] [address] [place] [address] Earl Rodriguez PA Leg Pain/problem 07/12/2023 Travel 06/21/2023 10:00 AM AUTOMOBILE SERVICE ADVISOR Office Visit [facility] [address] [place] [address] Migel Kaba MD Procedure (Right L2-3 and L4-5 TFESI) 06/21/2023 Orders Only [facility] Scanner 1 scan: (1-Ord) [place], RIGHT L4-L5 and RIGHT L2-L3 TRANSFORAMINAL EPIDURAL STEROID INJECTION, 06/21/2023 06/20/2023 10:58 AM AUTOMOBILE SERVICE ADVISOR - 06/20/2023 11:59 PM AUTOMOBILE SERVICE ADVISOR Hospital Encounter [facility] [address] [place] [address] Abnormal mammogram 06/20/2023 Travel 06/15/2023 Orders Only [facility] [address] [place] [address] Moe Ambriz NP 1 scan: (1-Ord) 06/13/2023 06/13/2023 3:40 PM AUTOMOBILE SERVICE ADVISOR Office Visit [facility] [address] [place] [address] Moe Ambriz NP Chest Pain/problem (Has hiatal hernia. Intermittent mid sternal discomfort that radiates into neck and ears. Last week started weaning Omeprazole and starting Pepcid. Feels symptoms have developed more frequently since making the medication change. Burping a lot and is becoming more painful. Has not changed diet. ) 06/13/2023 Travel 06/13/2023 Nurse Triage [facility] [address] [place] [address] Selene Carranza PA Chest Pain 06/13/2023 Transcribe Orders [facility] [address] [facility] [address] [place] [phone] Rc Nuñez MD 06/12/2023 Refill [facility] [address] [facility] [place] [address] Selene Carranza PA Refill Request (Omeprazole) from Last 3 Months Immunizations Name Administration [...] Sign Reading Time Taken Comments Blood Pressure 120/78 08/10/2023 2:35 PM CDT Pulse 73 08/10/2023 2:35 PM CDT Temperature 36.5 ??C (97.7 ??F) 08/10/2023 2:35 PM CD T Respiratory Rate 14 07/12/2023 4:20 PM CDT Oxygen Saturation 99% 08/10/2023 2:35 PM CDT Inhaled Oxygen Concentration - - Weight 94.2 kg (207 lb 9.6 oz) 08/10/2023 2:35 P M CDT shoes on Height 160 cm (5' 3) 08/04/2023 4:22 PM CDT Body Mass Index 36.77 08/04/2023 4:22 PM CDT Plan of Treatment Upcoming Encounters Date Type Department Care Team (Latest Contact Info) Description 09/06/2023 9:40 AM CDT Office Visit [facility] [address] [place] [address] Migel Kaba MD [address] [place] [address] Arrived 09/12/2023 3:30 PM CDT Preop Visit [facility] [address] [place] [address] Selene Carranza PA [address] [place] [address] 09/16/2023 7:15 AM CDT Appointment [facility] [address] [place] [address] Sybil Ferreira, PT [address] [place] [address] 09/23/2023 7:15 AM CDT Appointment [facility] [address] [place] [address] NightSybil fitch, PT [address] [place] [address] 10/06/2023 12:25 PM CDT Hospital Encounter [address] [address] Rc Nuñez MD [address] [place] [address] 10/06/2023 12:25 PM CDT - 10/06/2023 2:27 PM CDT Surgery [address] [address] Rc Nuñez MD [address] [place] [address] BEDDED OUTPATIENT RIGHT TOTAL KNEE ARTHROPLASTY 10/20/2023 11:00 AM CDT Office Visit [facility] [place] [address] [facility] [address] [place] [address] Carmenza Stevenson PA [address] [facility] [address] [place] [address] 11/15/2023 11:10 AM CDT Hospital Encounter [address] [address] Rc Nuñez MD [address] [place] [address] 11/15/2023 11:10 AM CDT - 11/15/2023 1:12 PM CDT Surgery [facility] [address] [place] [address] Rc Nuñez MD [address] [place] [address] BEDDED OUTPATIENT LEFT TOTAL KNEE ARTHROPLASTY 11/30/2023 11:00 AM CDT Office Visit [facility] [address] [facility] [address] [place] [address] Carmenza Stevenson PA [address] [facility] [address] [place] [address] Scheduled Procedures Name Priority Associated Diagnoses Date/Ti [...] non-DNA (FIT,FOBT,iFOBT) for age 45-75 06/08/2023 06/08/2022 Influenza for age 50-64 01/01/2024 03/31/20 23, 02/19/2022, 02/19/2021, Additional history exists Depression screening for age 12+ 04/08/2024 04/08/2023, 04/08/2023, 03/02/2021, Additional history exists Mammogram for age 45-75 06/20/2024 06/20/19 24, 12/24/2022, 12/15/2022, Additional history exists BMI (ht and wt on same day) for age 18+ 08/03/2024 08/04/2023, 04/08/2023, 03/09/2022, Additional history exists Pap test for age 21-65 02/24/2025 , 02/25/2020, 08/09/2016, Additional history exists Tetanus booster 08/09/2026 08/09/2016, 12/16/2005 Lipids for age 45-75 06/15/2027 06/15/2022, 03/02/2021, 02/25/2020, Additional history exists Tdap Completed 12/16/2005 Pneumococcal series for age 6-64 Aged Out 04/29/2010 No longer eligible based on patient's age to complete this topic Zoster (shingles) series for age 50+ Completed 09/09/2021, 04/29/2021 Medical Devices Implanted Type Area Manager [employer] Device Identifier Shelf Expiration Date Model / Serial / Lot Shell Hip Od52mm 3 Hole R3 Pe - [id number] Implanted:Qty: 1 on 12/02/2016 by Rc Nuñez MD at [facility] Left: Hip [employer] 09/29/2026 [id number] / / [id number] Liner Hip Id32 Od52mm 0deg R3 Xlpe - [id number] Implanted:Qty: 1 on 12/02/2016 by Rc Nuñez MD at [facility] Left: Hip [employer] 10/17/2026 [id number] / / [id number] Stem Hip Sz2 135deg Polarstem Std - [id number] Implanted:Qty: 1 on 12/02/2016 by Rc Nuñez MD at [facility] Left: Hip [employer] 08/19/2023 [id number] / / [id number] Head Hip Od32mm -3 04/14 [employer]in[employer] Oxin - [id number] Implanted:Qty: 1 on 12/02/2016 by Rc Nuñez MD at [facility] Left: Hip [employer] 09/27/2026 [id number] / / [id number] Mesh Inguinal Rt 4x6in 3-D Max - [id number] Implanted:Qty: 1 on 05/26/2022 by Abram Hightower DO at [facility] Right: Abdomen [employer] 11/26/2026 [id number] / / [id number] Procedures Procedure Name Priority Date/Time Associated Diagnosis Comments AMB EPIDURAL STEROID INJECTION Routine 09/06/2023 8:07 AM CDT Lumbar radiculopathy Herniated lumbar intervertebral disc MR SPINE LUMBAR WO Routine 08/22/2023 3: 36 PM CDT Foraminal stenosis of lumbar region Lumbar radiculopathy Herniated lumbar intervertebral disc Spinal stenosis of lumbar region with neurogenic claudication US VENOUS LOWER EXTREMITY RIGHT STAT 07/12/2023 6:17 PM CDT Lumbar radiculopathy AMB EPIDURAL STEROID INJECTION Routine 06/21/2023 8:01 AM AUTOMOBILE SERVICE ADVISOR Foraminal stenosis of lumbar region Herniated lumbar intervertebral disc Lumbar radiculopathy SCAN-OPERATIVE/PRO CEDURE REPORT 06/21/2023 12:00 AM AUTOMOBILE SERVICE ADVISOR XR MAMMO KATHRYN UNI DIAG RIGHT Routine 06/20/2023 11:23 AM AUTOMOBILE SERVICE ADVISOR Abnormal mammogram EKG 12 LEAD Routine 06/13/2023 12:00 AM AUTOMOBILE SERVICE ADVISOR Indigestion LC LIPID PANEL AND CHOL/HDL RATIO Routine 06/15/2022 3:22 PM AUTOMOBILE SERVICE ADVISOR Screening cholesterol level OCCULT BLOOD IFOBT STOOL Routine 06/08/2022 2:51 PM AUTOMOBILE SERVICE ADVISOR Screening for malignant neoplasm of colon VACUUM FURNACE OPERATOR THIN PREP PAP SCREEN IMAGED Routine 02/25/2020 4:00 PM CDT Screening for malignant neoplasm of cervix from Last 3 Months or Most Recently Relevant to Health Maintenance Results * MR SPINE LUMBAR WO (08/22/2023 3:36 PM CDT) Anatomical Region Laterality Modality Spine, LUMBAR SPINE Magnetic Res onance 08/22/2023 4:12 PM CDT Narrative 08/22/2023 4:12 PM CDT For Patients: ??As a result of the Cures Act, medical imaging exams and procedure reports are released immediately into your electronic medical record. ??You may view this report before your referring provider. ??If you have questions, please contact your health care provider. Indication: Lumbar radiculopathy. Technique: Multiplanar, multisequence MRI of the lumbar spine was performed without intravenous contrast. Comparison: Lumbar spine MRI 11/08/2022. Findings: There are 5 lumbar type vertebral segments identified. The vertebral body heights are maintained without evidence of fracture. There is no discrete T1 hypointense marrow infiltrating process. Moderate levoconvex curvature. The conus medullaris terminates at T12-L1, normal. Cauda equina appears unremarkable. T11-12: Disc degeneration. Disc bulge results in mild spinal canal narrowing. No neural foraminal narrowing. T12-L1: No spinal canal or neural foraminal stenosis. L1-2: Disc degeneration. Disc bulge with facet hypertrophy resulting in mild spinal canal narrowing. Moderate right and mild left neural foraminal narrowing. Stable. L2-3: Disc degeneration. Disc bulge with development of a large superimposed inferiorly migrated left subarticular disc extrusion. There is approximately 9 mm of inferior migration. This results in moderate left lateral recess narrowing and encroaches upon the descending left L3 nerves. Moderate spinal canal narrowing. Severe right and mild left neural foraminal narrowing. L3-4: Stable superiorly migrated central disc extrusion. Mild to moderate spinal canal narrowing. Moderate neural foraminal narrowing. L4-5: Disc degeneration. Disc bulge with facet hypertrophy resulting in mild spinal canal narrowing. Mild neural foraminal narrowing. Moderate facet arthropathy. Stable. L5-S1: ??No spinal canal or neural foraminal stenosis. Mild sacroiliac joint osteoarthritis. Impression: 1. At L2-3, interval development of a inferiorly migrated left subarticular disc extrusion. Encroachment upon the descending left L3 nerves. Moderate spinal canal narrowing. Severe right and mild left neural foraminal narrowing. 2. At L3-4, stable superiorly migrated central disc extrusion with [id number]-ye-myvogrvq spinal canal narrowing. 3. Stable milder spondylosis at the remaining lumbar levels. Dictated by Shamar Abdi MD @ 08/22/2023 4:12:59 PM (Electronically Signed) Procedure Note Shamar Abdi DO - 08/22/2023 For Patients: As a result of the Century Cures Act, medical imagingexams and procedure reports are released immediately into your electronicmedical record. You may view this report before your referring provider.If you have questions, please contact your health care provider. Indication: Lumbar radiculopathy. Technique: Multiplanar, multisequence MRI of the lumbar spine was performed withoutintravenous contrast. Comparison: Lumbar spine MRI 11/08/2022. Findings: There are 5 lumbar type vertebral segments identified. The vertebral bodyheights are maintained without evidence of fracture. There is no discreteT1 hypointense marrow infiltrating process. Moderate levoconvex curvature. The conus medullaris terminates at T12-L1, normal. Cauda equina appearsunremarkable. T11-12: Disc degeneration. Disc bulge results in mild spinal canalnarrowing. No neural foraminal narrowing. T12-L1: No spinal canal or neural foraminal stenosis. L1-2: Disc degeneration. Disc bulge with facet hypertrophy resulting inmild spinal canal narrowing. Moderate right and mild left neural foraminalnarrowing. Stable. L2-3: Disc degeneration. Disc bulge with development of a largesuperimposed inferiorly migrated left subarticular disc extrusion. Thereis approximately 9 mm of inferior migration. This results in moderate leftlateral recess narrowing and encroaches upon the descending left [id number]. Moderate spinal canal narrowing. Severe right and mild left neuralforaminal narrowing. L3-4: Stable superiorly migrated central disc extrusion. Mild to moderatespinal canal narrowing. Moderate neural foraminal narrowing. L4-5: Disc degeneration. Disc bulge with facet hypertrophy resulting inmild spinal canal narrowing. Mild neural foraminal narrowing. Moderatefacet arthropathy. Stable. L5-S1: No spinal canal or neural foraminal stenosis. Mild sacroiliac joint osteoarthritis. Impression: 1. At L2-3, interval development of a inferiorly migrated leftsubarticular disc extrusion. Encroachment upon the descending left D2hdiamw. Moderate spinal canal narrowing. Severe right and mild left neuralforaminal narrowing. 2. At L3-4, stable superiorly migrated central disc extrusion [id number]-ee-[id number] spinal canal narrowing. 3. Stable milder spondylosis at the remaining lumbar levels. Dictated by Shamar Abdi MD @ 08/22/2023 4:12:59 PM (Electronically Signed) Migel Kaba MD MR * US VENOUS LOWER EXTREMITY RIGHT (07/12/2023 6:17 PM CDT) Anatomical Region Laterality Modality LEGS, LEG R, Abdomen Ultrasound 07/12/2023 6:38 PM CDT Impressions 07/12/2023 6:38 PM CDT Normal right lower extremity venous ultrasound, no sign of deep venous thrombosis. Dictated by Luis Carpenter MD @ 07/12/2023 6:38:59 PM (Electronically Signed) Narrative 07/12/2023 6:38 PM CDT For Patients: ??As a result of the Cures Act, medical imaging exams and procedure reports are released immediately into your electronic medical record. ??You may view this report before your referring provider. ??If you have questions, please contact your health care provider. INDICATION: Leg pain and swelling. TECHNIQUE: Ultrasound venous duplex lower right extremity. Compression venous exam was performed using morales-scale, color Doppler, and spectral Doppler analysis. COMPARISON: None. FINDINGS: Deep veins: Sonographic imaging demonstrates the right common femoral, deep femoral, superficial femoral, popliteal, posterior tibial and the contralateral left common femoral veins to be fully compressible with normal color Doppler blood flow. Superficial veins: Greater saphenous vein is fully compressible. No popliteal cyst. Procedure Note Luis Carpenter MD - 07/12/2023 For Patients: As a result of the Cures Act, medical imagingexams and procedure reports are released immediately into your electronicmedical record. You may view this report before your referring provider.If you have questions, please contact your health care provider. INDICATION: Leg pain and swelling. TECHNIQUE: Ultrasound venous duplex lower right extremity. Compression venous examwas performed using morales-scale, color Doppler, and spectral Doppleranalysis. COMPARISON: None. FINDINGS: Deep veins: Sonographic imaging demonstrates the right common femoral,deep femoral, superficial femoral, popliteal, posterior tibial and thecontralateral left common femoral veins to be fully compressible withnormal color Doppler blood flow. Superficial veins: Greater saphenous vein is fully compressible. No popliteal cyst. IMPRESSION: Normal right lower extremity venous ultrasound, no sign of deep venousthrombosis. Dictated by Luis Carpenter MD @ 07/12/2023 6:38:59 PM (Electronically Signed) Earl URIBE US * SCAN-OPERATIVE/PROCEDURE REPORT (06/21/2023 12:00 AM AUTOMOBILE SERVICE ADVISOR) Scanner OTHER * XR MAMMO KATHRYN UNI DIAG RIGHT (06/20/2023 11:23 AM AUTOMOBILE SERVICE ADVISOR) Anatomical Region Laterality Modality BREASTS, Breast Right Mammograph y, Other Impressions 06/20/2023 1:17 PM AUTOMOBILE SERVICE ADVISOR Subtle calcifications the RIGHT breast are unchanged [...] your referring provider. Narrative 06/20/2023 1:17 PM AUTOMOBILE SERVICE ADVISOR For Patients: As a result of the [...] * EKG 12 LEAD (06/13/2023 12:00 AM AUTOMOBILE SERVICE ADVISOR) Waris George Pb AIRCRAFT TOOL MAKER EKG ORD * (ABNORMAL) LC LIPID PANEL AND CHOL/HDL RATIO (06/15/2022 3:22 PM [facility]) [facility] Signature Cholesterol, Total 201(H) 100 - 199 mg/dL 06/18/2022 8:11 AM [facility] Triglycerides 63 0 - 149 mg/dL 06/18/2022 8:11 AM [facility] HDL Cholesterol 70 >39 mg/dL 8:11 AM [facility] VLDL Cholesterol Efren 11 5 - 40 mg/dL 06/18/2022 8:11 AM [facility] LDL Chol Calc ([facility]) 120(H) 0 - 99 mg/dL 06/18/2022 8:11 AM [facility] T. Chol/HDL Ratio 2.9 0.0 - 4.4 ratio 06/18/2022 8:11 AM [facility] Comment: ?T. Chol/HDL Ratio ?Men ??Women ?1/2 Avg.Risk ??3.4 ?3.3 ?Avg.Risk ??5.0 ?4.4 ? 2X Avg.Risk ??9.6 ?7.1 ? 3X Avg.Risk 23.4 ?? 11.0 Blood BLOOD SPECIMEN / Unknown Venipuncture / Unknown 06/15/2022 3:22 PM AUTOMOBILE SERVICE ADVISOR 06/15/2022 3:23 PM AUTOMOBILE SERVICE ADVISOR Narrative [facility] - 06/18/2022 8:11 AM AUTOMOBILE SERVICE ADVISOR Performed at: ??01 - [facility] [address], [place] ??[id number] Mortgage Assistant: Deonte Martinez MD, Phone: ??[phone] Selene URIBE SEND OUTS [facility]) [facility] [place] [address], * OCCULT BLOOD IFOBT STOOL (06/08/2022 2:51 PM AUTOMOBILE SERVICE ADVISOR) STOOL BLOOD ,IFOBT Negative Negative 06/14/2022 10:55 AM AUTOMOBILE SERVICE ADVISOR [facility] Stool STOOL SPECIMEN / Unknown Non-Blood / Unknown 06/08/2022 2:51 PM AUTOMOBILE SERVICE ADVISOR 06/12/2022 2:51 PM AUTOMOBILE SERVICE ADVISOR Selene URIBE LABORATORY Performing Organization Address City/[facility]/ZIP Co de Phone Number [facility] [address] [place] [address], * VACUUM FURNACE OPERATOR THIN PREP PAP SCREEN IMAGED (02/25/2020 4:00 PM CDT) Case Report Gynecologic Cytology Report ? Case: [id number] ? Authorizing Provider: ??Selene Carranza PA ?Collected: ? 02/25/2020 1600 ? Ordering Location: ? [facility] ?Received: ?02/25/2020 1645 ? Clinic ? First Screen: ?Anna Hough ? Specimen: ?VACUUM FURNACE OPERATOR ThinPrep Vial Screening, Cervical ? 02/29/2020 3:22 PM CDT [facility] INTERPRETATION/ RESULT NEGATIVE FOR INTRAEPITHELIAL LESION OR MALIGNANCY (NIL) (none) 02/29/2020 3:22 PM CDT [facility] IMEN ADEQUACY Satisfactory for evaluation Endocervical component present Scant cellularity 02/29/2020 3:22 PM CDT [facility] HPV REQUEST HPV and PAP 02/29/2020 3:22 PM CDT [facility] Date of LMP 02/15/2020 02/29/2020 3:22 PM CDT [facility] Last Pap Date 08/09/16 02/29/2020 3:22 PM CDT [facility] Last Pap Result NIL 0 3:22 PM CDT [facility] Abnormal Pap or [place] Bx in last 5 years No 02/29/2020 3:22 PM CDT [facility] Menstrual Status Regular Periods 02/29/2020 3:22 PM CDT [facility] [place] Bx Done Today No 02/29/2020 3:22 PM CDT [facility] Additional Information None given 02/29/2020 3:22 PM CDT [facility] Comment: Cytology is screened at [facility] Laboratory - [address], [place] [address] and [facility] - [address], [place] [address] and [facility] - [address] [place] [address] [facility] - [address], [place] [address] Automated Review Successful 02/29/2020 3:22 PM CDT [facility] Comment:Specimen processed s uccessfully by automated city planning aide device, Thin[employer] Imaging System, [employer] ANCILLARY TESTING VACUUM FURNACE OPERATOR HPV Ordered, Please see separate report 02/29/2020 3:22 PM CDT [facility] Note The pap test is a screening technique, not a diagnostic procedure. It is used primarily to screen for squamous cancers and precursor lesions. Published studies have shown that it is subject to both false negative and false positive results. The pap test should not be used as the sole means to diagnose or exclude pre-malignant and malignant lesions. 02/29/2020 3:22 PM CDT [facility] Other (Cervical) Non-Blood / Unknown 02/25/2020 4:00 PM CDT 02/25/2020 4:45 PM CDT [facility] [address] [place] [address], [place] from Last 3 Months or Most Recently Relevant to Health Maintenance Advance Directives * Full Code (Latest Code Status on File) Date Activated Date Inactivated Comments 05/26/2022 9:31 AM 05/27/2022 2:34 AM Question Answer Comments Code Status Discussion: Reviewed Preferences * Full Code Date Activated Date Inactivated Comments 12/02/2016 12:48 PM 12/04/2016 1:05 PM * Full Code Date Activated Date Inactivated Comments 12/02/2016 7:02 AM 12/02/2016 12:39 PM Care Teams Lace Inspector Relationship Specialty Start Date End Date Selene Carranza [place] [place] [address] PCP - General Physician Director Corporate Security 10/21/22
--- OUTSIDE RECORDS SUMMARY | 2023-09-06 09:04 | XMS_ITS | Encounter Summary ---
Author Name Unknown Organization [facility] Address [address], [place] [address] Care Team Providers Care Insurance Risk Analyst Name Role Phone Joyce Wilson MD Primary Care Provider [phone] Reason for Visit * Reason Comments Refill Encounter Details Date Type Department Care Team (Late st Contact Info) Description 07/29/2023 Refill [facility] [address] [place], [place] [id number] Tracey Brown MD [address] [place] [id number] Refill Social History Tobacco Use Types [...] Nursing Notes * Ree Martin RN - 07/29/2023 12:18 PM CDT Last visit:03/31/23 Future visit: 08/03/23 Lab Results Component Value Date WBC 3.8 03/31/2023 RBC 3.93 03/31/2023 Hemoglobin 12.3 03/31/2023 HCT 36.9 03/31/2023 MCV 93.9 03/31/2023 RDW 13.7 03/31/2023 Platelets 151 03/31/2023 Lab Results Component Value Date Creatinine 0.90 03/31/2023 Renewed medication per medication refill standing order. Requested Prescriptions Signed Prescriptions Disp Refills celecoxib (CELEBREX) 100 MG capsule 120 Capsule 1 Sig: TAKE ONE CAPSULE BY MOUTH TWICE A DAY Authorizing Provider: TRACEY BROWN Ordering User: REE MARTIN documented in this encounter Plan of Treatment Upcoming Encounters Date Type Department Care Team (Late st Contact Info) Description 11/30/2023 2:30 PM CDT Appointment [facility] [address] [place] [address] Tracey Borwn MD [address] [place] [phone] documented as of this encounter Visit Diagnoses Not on filedocumented in this encounter Care Teams Insurance Risk Analyst Relationship Specialty Start Date End Date Joyce Wilson MD [address] [place] [address] PCP - General 06/08/13 documented as of this encounter
--- OUTSIDE RECORDS SUMMARY | 2023-09-06 09:04 | XMS_ITS | Encounter Summary ---
Author Name Unknown Organization [facility] Address [address] [address] Care Team Providers Care Die Cut Operator Name Role Phone Joyce Wilson MD Primary Care Provider [phone] Reason for Visit * Reason Comments Follow-up Encounter Details Date Type Department Care Team (Late st Contact Info) Description 08/03/2023 3:00 PM CDT Office Visit [facility] [address] [place] [address] Tracey Marino MD [address] [place] [id number] Other systemic lupus erythematosus with other organ involvement (HRC) (Primary Dx); Inflammatory arthritis; Fibromyalgia; Osteoarthritis of multiple joints, unspecified osteoarthritis type; 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 Try O KEEFES working hands for the hands at night, can also use the triamcinolone twice a day for the cracking but only use for 2 weeks then stop - Refresh, Genteal, Systane drops (or generic equivalents) - Systane night time gel - biotene rinse, lozenges (ACT) ,Xylimelts- for dry mouth - stay well hydrated- add lemon to water - Humidifer in bedroom - Fish oil 1000-3000mg daily - Replens for vaginal dryness -Altadena gel or Andrews spray for dry nasal mucosa Agree with plans for knee surgeries! celebrex 100 mg twice a day as needed Continue hydroxycholorquine 400 mg daily Continue leflunomide 1 tablet daily Prednisone 3 mg daily Continue water aerobics and PT Continue lyrica Blood work today Follow up in 4 months Fibromyalgia What is it? Fibromyalgia is a [...] in helping patients better manage chronic pain. Iqt-lwirxntynh-vpaoh treatments An exercise program is an essential [...] heated pool.Many community pools such as the [facility] offer ???fibrocize?? water aerobics programs. A [...] also help reduce stress. Occupational therapists at [facility] offer a program called the Lifestyle renewal program (see information on last page), where you can learn these techniques, and the majority of patients report that this is helpful. Pain psychologists at [facility] are another helpful resource. Amanda Spencer, PhD, Beba Phan Ed, LP, Psychologist at [facility] [Chronic pain (headaches, fibromyalgia, etc.) and irritablebowel syndrome - evaluation and treatment], and Richard Nance, Ph.D., LP, Psychologist at [facility] (Chronic pain evaluation). Patients may schedule appointments [...] can help in some instances, as can primary care physician. Warm water pool physical therapy at places like the [employer] and [facility] can be prescribed by your physician, [...] trigger points can be injected by your Director Of Instructional Technology or other providers with a mixture of [...] of internal organs. Resources National Fibromyalgia Association 899 007 6689 www.fmaware.org National [place] of Arthritis and Musculoskeletal and Skin Diseases 265 704 9852 www.niams.nih.gov National Center for Complementary and Alternative Medicine [phone] www.[facility].nih.gov [facility] (Water aerobics, heated pool to 91 degrees) [address] [place] [address]; charges apply. What else can be tried? Sometimes, for a minority of patients, the above interventions do not result in control of fibromyalgia. In these cases, you should consider a chronic pain program. Several of these and additional resources are listed below: [facility], Dr. Alexy Blanchard , [address] [facility] [place] [address], [place] [address] Also offices in [place] and [place]. , [email or web address].[email or web address] [facility] - Aquatic Therapy: [place], [place], [place], [place], [place], [facility], [place], [place], [place]. [email or web address] [email or web address] [address] [place] [address] Outpatient therapy: (physical, occupational and speech therapy; tilt tray driver evaluations) Initial appointment: [phone]; Follow-up appointment: [phone] Aquatic therapy, [place] [phone] [facility], [email or web address].[email or web address].[employer], [address] [facility] [address], . [facility] - Pain Management [address] [place] [address] Appointments: [phone] [facility] [email or web address], [address] [place] [address]; Also a location in [place]. [facility] [phone] [facility], [address]th [place] [address] [facility] - they focus more on back pain, but offer cognitive behavioral therapy. [place] Ochoa [facility] [phone] [facility] [phone], [address] [facility] [address], [place] [address] Trey Ulloa MD [phone], data warehousing specialist, [address] [address] [facility] (will treat fibromyalgia and chronic pain syndrome in addition to head & neck disorders; also have [employer] equipment for chronic back pain). [email or web address] [place]: [address] [facility], [address], [address]; [phone] [place]: [address] [facility], [address], [address]; [phone] [place]: [address] [place] [address], [address]; [phone] [place]: [address], [address]; [phone] Lifestyle Renewal Program - At [facility] The LifeStyle Renewal Program is an integrated [...] symptoms and improve quality of life. [facility] [place] Providers: Occupational Therapists with specialty training. Program: [...] Increase understanding - provide education 4. Use sirh-ahnn-qhdsji therapies to reframe pain/symptom experience 5. Modify [...] Progress Notes * Tracey Marino MD - 08/03/2023 3:00 PM CDT RHEUMATOLOGY FOLLOW-UP CC: History of SLE, morphea, high-risk medication use Encounter date: 08/03/2023 Date of last office visit: 03/31/2023 Rheumatologic history: The patient is a 52 y.o. female with medical history of systemic lupus erythematosus, morphea, hip dysplasia status post hip replacement, carpal tunnel,myofascial pain, insomnia, iron deficiency anemia, hypothyroidism, and acid reflux presenting today for follow-up. She was previously following with my colleague, Dr. Drummond, last visit was in September 2021. She was initially evaluated by Rheumatology at the [facility] in 2011. Initially her disease was characterized [...] options for myofascial pain. Interim history: She had bunion surgery and hammertoe in April 2023. She feels like this went well overall. She had back injection and thought this was very beneficial. She has pain on the right side of her leg and is wondering if this is also from a pinched nerve as well. Front of the leg is better. She is getting both of her knees done this summer. She is very excited. She is trying to do pre-physical therapy for this as well. She is doing PT for the foot. She is doing stretching in the morning and has tightness in the hips. She does sleep on her sides and sleeps on the right side. Does not wake her up anymore. She had a ultrasound in July 2023 with no DVT. She has been trying to get off of omeprazole and had worsening acid reflux. She feels like wrists, ankles, and feet have been bothersome. No new rashes. No ulcers in the mouthor nose. No fevers or new night sweats. She does get hot flashes. Continues to have mouth and eye dryness. She has not currently using any zzli-ngk-txfqnrg options for this. Does drink water frequently. Most bothersome issue has been dryness of the hands with cracking. She notes with being at work she is to wash her hands frequently and uses her hands throughout the day and they have been very dry. She is tried using Vaseline at bedtime. Not using any additional topicals. ROS: Review of systems for today's visit was reviewed, and is as noted above PMH: Updated in EMR Outpatient Encounter Medications as of 08/03/2023 Medication Sig Note Dispense Refill calcium citrate-vitamin D (CITRACAL+D) 315-200 MG-UNIT tablet Take 1 Tablet by mouth two times a day. Carboxymethylcellulose Sodium (REFRESH LIQUIGEL OP) Place 1 drop into both eyes 4 times daily as needed (Use 3-4 times daily). celecoxib (CELEBREX) 100 MG capsule TAKE ONE CAPSULE BY MOUTH TWICE A DAY 120 Capsule 1 DULoxetine (CYMBALTA) 20 MG capsule Take 1 Capsule (20 mg) by mouth daily. 30 Capsule 0 famotidine (PEPCID) 40 MG tablet Take 1 Tablet (40 mg) by mouth daily. hydroxychloroquine (PLAQUENIL) 200 MG tablet Take 1 Tablet (200 mg) by mouth two times a day. 180 Tablet 1 ketoconazole (NIZORAL) 2 % cream Apply topically two times daily as needed. For flares, to the foldareas. 60 g 11 leflunomide (ARAVA) 20 MG tablet Take 1 Tablet (20 mg) by mouth daily. 90 Tablet 1 levothyroxine (AKA SYNTHROID) 150 MCG tablet Take 1 Tablet (150 mcg) by mouth daily. nystatin (MYCOSTATIN) 998677 UNIT/GM powder Apply to affected areas up to 3 times daily until healing is complete. 30 g 3 oxyBUTYnin (DITROPANXL) 10 MG 24 hour release tablet Take 1 Tablet (10 mg) by mouth daily. predniSONE (DELTASONE) 1 MG tablet Take 3 Tablets (3 mg) by mouth daily. 270 Tablet 1 pregabalin (LYRICA) 100 MG capsule Take 1 Capsule (100 mg) by mouth two times a day. 200 mg pm 08/03/2023: Pt takes 100 mg every morning and 200 mg every evening triamcinolone (KENALOG) 0.1 % lotion Apply topically. VITAMIN D, CHOLECALCIFEROL, OR [DISCONTINUED] omeprazole (PRILOSEC) 20 MG capsule Take 1 Capsule (20 mg) by mouth. No facility-administered encounter medications on file as of 08/03/2023. ALLERGIES: Updated in EMR Social History Tobacco Use Smoking Status Never Smokeless Tobacco Never Social History Substance and Sexual Activity Alcohol Use Yes Types: 2 Cans of beer per week Comment: one beer or glass of wine weekly MEDS: Reviewed and updated in the computerized record. Physical exam: Blood pressure 126/71, pulse 77, weight 206 lb (93.4 kg). General: Alert, no distress, appears comfortable Eyes: anicteric, EOMI ENT: Good saliva pool, no evidence of ulcerations Resp: breathing comfortably on room air. CTAB CV: RRR, slight systolic murmur Abd: Normal bowel sounds Skin: no ulcerations, nodules, or rashes noted on visible skin though she does have dryness and cracking of the tips of the fingers. There is no evidence of open ulcerations. Neuro: normal gait. Grossly normal strength. MSK: A focused joint exam was performed. The joint exam was negative for synovitis, deformity, tenderness, deformity with the exception of: Continues to have chronic pannus of the MCP joints bilaterally without tenderness to palpation of the true MCP joints. There is no tenderness to palpation or sy novitis of the DIP or PIP joints. Full range of motion of the shoulders with stiffness with range of motion. No pain with hip flexion. No tenderness to palpation of the joint line of the knees. No tenderness to palpation of the ankles. Feet not examined today due to recent surgery. She continues tohave soft tissue tender points consistent with active myofascial pain. Labs: Lab Results Component Value Date WBC 3.8 03/31/2023 RBC 3.93 03/31/2023 Hemoglobin 12.3 03/31/2023 HCT 36.9 03/31/2023 MCV 93.9 03/31/2023 RDW 13.7 03/31/2023 Platelets 151 03/31/2023 Lab Results Component Value Date AST (SGOT) 37 03/31/2023 , Lab Results Component Value Date ALT (SGPT) 32 03/31/2023 Lab Results Component Value Date Creatinine 0.90 03/31/2023 Lab Results Component Value Date Sedimentation Rate 7 03/31/2023 , Lab Results Component Value Date C-Reactive Protein <0.5 03/31/2023 Imaging: XR b/l knees 06/06/2023: FINDINGS: End Stage (bone on bone) patellofemoral compartment joint space narrowing bilateral knee(s) Moderate medial compartment joint space narrowing bilateral knee(s) Mild, Moderate lateral compartment joint space narrowing bilateral knee(s) Osteophytes patellofemoral, medial, lateral bilateral knee(s) valgus knee alignment No evidence of fracture or dislocation MRI lumbar spine 11/08/2022: 1. Lumbar curve [...] systemic lupus erythematosus. Initially diagnosed at the [facility] in 2011. Historyof positive BRIJESH and double-stranded DNA, though since subsequent serologies including BRENDA antibodies and double-stranded DNA have been unremarkable. Initial symptoms presented with photosensitivity, fatigue, arthralgias, history of hematologic involvement. From a lupus standpoint, she has been doing okay. No recent flare like episodes of inflammatory arthritis, rashes, ulcerations. Continues to struggle with dryness of the eyes and mouth and feels likethis has been worse this winter. She also has dryness of the skin and cracking of the fingertips. Her most recent monitoring blood work was overall stable. She continues to be on hydroxychloroquine 200 mg b.i.d., prednisone 3 mg daily, leflunomide 20 mg daily. She is overall tolerating these well without any significant side effects. Will obtain lupus monitoring blood work today as well as for medication monitoring. Would continue her current regimen given her plans for upcoming surgery. We reviewed ewil-gkf-oqpzsth options for dryness and she can use triamcinolone for the severe cracking of the fingers for the next 2 weeks then stop. We also reviewed using 0 keeps working hands at bedtime. Reviewed uznr-bdi-muwenef options for dryness as well. 2. Myofascial pain. Continues to have findings consistent with active fibromyalgia. She is currently doing land therapy in his going to plan on getting back into pool therapy when able. She continuesto be on Lyrica. 3. Long-term glucocorticoid use. Most recent DXA scan was done at [facility] in September 2020 which showed evidence of normal bone density. Given her prolonged glucocorticoid use as suggest that we repeat this in 2-3 years, will plan on repeat in October 2023. Would recommend that this be done at her outside facility so this can be used for comparison. 4. Osteoarthritis of multiple sites continues to struggle with osteoarthritis of the knees. She nowhas plans to move forward with surgery this summer. She was very excited for this. She does feel like Celebrex 100 mg twice daily has been beneficial. We reviewed that she continue using this as needed and should hold prior to her surgery as per her surgeon. Encouraged to continue with plans for physical therapy prior to having her surgery done. She can also use Tylenol as well. Follow-up in 4 months or sooner if needed. Patient advised to call clinic if symptoms change or worsen or if new symptoms develop. All of the patient's questions were answered to the best of my ability. Billing based on: complexity. MD Joslyn Duong [facility] documented in this encounter Plan of Treatment Upcoming Encounters Date Type Department Care Team (Late st Contact Info) Description 11/30/2023 2:30 PM CDT Appointment [facility] [address] [place] [address] Tracey Marino MD [address] [place] [address] documented as of this encounter Results * TP/Crea Ratio, Urine (08/03/2023 3:53 PM CDT) TP/Creat Ratio, Urine Random 08/03/2023 9:00 PM CDT [facility] Comment:Unable to calculate, raw result outside instrument reportable range. Total Protein, Urine, Random <1 0 - 14 mg/dL 08/03/2023 9:00 PM CDT [facility] Creatinine, Urine, Random 19 >20 mg/dL mg/dL 08/03/2023 9:00 PM CDT [facility] Urine URINE SPECIMEN COLLECTION, CLEAN CATCH / Unknown Non-blood Collection / Unknown 08/03/2023 3:53 PM CDT 08/03/2023 3:53 PM CDT Narrative [facility] - 08/03/2023 9:00 PM CDT Low urine creatinine values coupled with low urine protein values can artifactually increase the urine protein/creatinine results. Correlate results of ratio with creatinine results. Tracey Marino MD LAB_1 [facility] [address] [place], [place] [address] * Urinalysis Routine, Micro/Culture if Pos: Clean Catch (08/03/2023 3:53 PM CDT) Urine Culture Comment Urinalysis results do not meet criteria for urine culture reflex. 08/03/2023 4:03 PM [facility] Urine Color Straw 08/03/2023 4:03 PM [facility] Urine Clarity Clear Clear 08/03/2023 4:03 PM [facility] Specific [place], Urine 1.010 1.005 - 1.030 08/03/2023 4:03 PM [facility] PH Urine 7.0 5.0 - 8.0 08/03/2023 4:03 PM [facility] Protein, Urine Qual (mg/dL) Negative Neg/Trace 08/03/2023 4:03 PM [facility] Glucose Urine Qual (mg/dL) Negative Negative 08/03/2023 4:03 PM [facility] Ketones, Urine (mg/dL) Negative Negative 08/03/2023 4:03 PM [facility] Urobilinogen, Urine (EU/dL) 0.2 <2.0 08/03/2023 4:03 PM [facility] Bilirubin Urine Negative Negative 08/03/2023 4:03 PM [facility] Blood, Urine Negative Neg/Trace 08/03/2023 4:03 PM [facility] Nitrite Urine Negative Negative 08/03/2023 4:03 PM [facility] Leukocyte Est. Negative Negative 08/03/2023 4:03 PM [facility] Urine Source Clean Catch 08/03/2023 4:03 PM [facility] Urine URINE SPECIMEN COLLECTION, CLEAN CATCH / Unknown Non-blood Collection / Unknown 08/03/2023 3:53 PM CDT 08/03/2023 3:53 PM CDT Tracey Marino MD LAB_1 [facility] [address] [place] [address], [facility] * Vitamin D 25-Hydroxy, Total (08/03/2023 3:37 PM CDT) Vitamin D, 25-OH, Total 36 30 - 80 ng/mL 08/03/2023 9:36 PM CDT [facility] Blood Venipuncture / Unknown 08/03/2023 3:37 PM CDT 08/03/2023 3:37 PM CDT Tracey Marino MD LAB_1 [facility] [address] * C-Reactive Protein (08/03/2023 3:37 PM CDT) Pathologist [facility] C-Reactive Protein <0.5 0.0 - 0.5 mg/dL 08/03/2023 4:55 PM CDT [facility] Blood Venipuncture / Unknown 08/03/2023 3:37 PM CDT 08/03/2023 3:37 PM CDT Tracey Marino MD LAB_1 Performing Organization Address [facility] Co de Phone Number [facility] [address] [place] [phone] * ESR (08/03/2023 3:37 PM CDT) Pathologist [facility] Sedimentation Rate 10 0 - 20 mm/hr 08/03/2023 6:29 PM CDT [facility] Blood Venipuncture / Unknown 08/03/2023 3:37 PM CDT 08/03/2023 3:37 PM CDT Tracey Marino MD LAB_1 Performing Organization Address [facility] Co de Phone Number [facility] [address] [place] [phone] * C4 Complement (08/03/2023 3:37 PM CDT) Pathologist [facility] C4 Complement 24.0 15.0 - 57.0 mg/dL 08/03/2023 9:04 PM CDT [facility] Blood Venipuncture / Unknown 08/03/2023 3:37 PM CDT 08/03/2023 3:37 PM CDT Tracey Marino MD LAB_1 Performing Organization Address [facility] Co de Phone Number [facility] [address] [place] [address] * C3 Complement (08/03/2023 3:37 PM CDT) C3 Complement 106 83 - 193 mg/dL 08/03/2023 9:04 PM CDT [facility] Blood Venipuncture / Unknown 08/03/2023 3:37 PM CDT 08/03/2023 3:37 PM CDT Tracey Marino MD LAB_1 Performing Organization Address [facility] Phone Number [facility] [address] [place] [address] * DNA Double Stranded Antibody (Salena) (08/03/2023 3:37 PM CDT) [facility] Anti-dsDNA Ab (Salena Assay) <8.0 <8.0 IU/mL 08/11/2023 4:07 PM CDT [facility] Blood Venipuncture / Unknown 08/03/2023 3:37 PM CDT 08/03/2023 3:37 PM CDT Narrative [facility] - 08/11/2023 4:07 PM CDT Test(s) [id number] Ab by Salena(RDL) was developed and its performance characteristics determined by [facility]. It has not been cleared or approved by the Food and Drug Administration. 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
== END 2023-09-06 09:01 | disposition home or self-care (01) ==
LOC: INJ CL 09:00
PROVIDERS: PCP Physician Assistant; Visit Provider Family Medicine
DX: M54.16 Radiculopathy, lumbar region (principal); M51.36 Other intervertebral disc degeneration, lumbar region
CPT/HCPCS: 62323; J0702; Q9966

== ENCOUNTER 2024-12-05 13:39 | Outpatient (CLI) | payer OTHER, SELFPAY | END 2024-12-05 13:40 | disposition home or self-care (01) | LOC: WOUND 13:39 | PROVIDERS: PCP Physician Assistant; Visit Provider Nurse Practitioner Family | DX: T81.31XA Disruption of external operation (surgical) wound, not elsewhere classified, initial encounter (principal); M32.10 Systemic lupus erythematosus, organ or system involvement unspecified | CPT/HCPCS: 11042; G0463 ==

== ENCOUNTER 2024-12-11 07:54 | Outpatient (CLI) | payer OTHER, SELFPAY | END 2024-12-11 07:55 | disposition home or self-care (01) | LOC: INJ CL 07:55 | PROVIDERS: PCP Physician Assistant; Visit Provider Family Medicine | DX: M54.16 Radiculopathy, lumbar region (principal); M51.369 Other intervertebral disc degeneration, lumbar region without mention of lumbar back pain or lower extremity pain | CPT/HCPCS: 64483; 64484; J1100; Q9966 ==

== ENCOUNTER 2024-12-12 13:49 | Outpatient (CLI) | payer OTHER, SELFPAY | END 2024-12-12 13:50 | disposition home or self-care (01) | LOC: WOUND 13:49 | PROVIDERS: PCP Physician Assistant; Visit Provider Surgery | DX: T81.31XA Disruption of external operation (surgical) wound, not elsewhere classified, initial encounter (principal); M32.10 Systemic lupus erythematosus, organ or system involvement unspecified | CPT/HCPCS: 11042; 97605 ==

== ENCOUNTER 2024-12-18 14:50 | Outpatient (CLI) | payer OTHER, SELFPAY | END 2024-12-18 14:51 | disposition home or self-care (01) | PROVIDERS: PCP Physician Assistant; Visit Provider Nurse Practitioner Family | DX: T81.89XA Other complications of procedures, not elsewhere classified, initial encounter (principal); T86.821 Skin graft (allograft) (autograft) failure; M32.10 Systemic lupus erythematosus, organ or system involvement unspecified | CPT/HCPCS: 11042; 97605 ==

== ENCOUNTER 2024-12-27 15:16 | Outpatient (CLI) | payer OTHER, SELFPAY | END 2024-12-27 15:17 | disposition home or self-care (01) | LOC: WOUND 15:16 | PROVIDERS: PCP Physician Assistant; Visit Provider Nurse Practitioner Family | DX: T81.89XA Other complications of procedures, not elsewhere classified, initial encounter (principal); T86.821 Skin graft (allograft) (autograft) failure; L97.822 Non-pressure chronic ulcer of other part of left lower leg with fat layer exposed; M32.10 Systemic lupus erythematosus, organ or system involvement unspecified | CPT/HCPCS: 11042 ==

== ENCOUNTER 2025-01-03 15:36 | Outpatient (CLI) | payer OTHER, SELFPAY | END 2025-01-03 15:37 | disposition home or self-care (01) | LOC: WOUND 15:36 | PROVIDERS: PCP Physician Assistant; Visit Provider Nurse Practitioner Family | DX: T81.89XA Other complications of procedures, not elsewhere classified, initial encounter (principal); M32.10 Systemic lupus erythematosus, organ or system involvement unspecified | CPT/HCPCS: 15271; 97605; C5271; Q4102 ==

== ENCOUNTER 2025-01-10 15:30 | Outpatient (CLI) | payer OTHER, SELFPAY | END 2025-01-10 15:31 | disposition home or self-care (01) | LOC: WOUND 15:30 | PROVIDERS: PCP Physician Assistant; Visit Provider Nurse Practitioner Family | DX: T86.821 Skin graft (allograft) (autograft) failure (principal); T81.89XA Other complications of procedures, not elsewhere classified, initial encounter; M32.10 Systemic lupus erythematosus, organ or system involvement unspecified | CPT/HCPCS: 97605; G0463 ==

== ENCOUNTER 2025-01-17 15:29 | Outpatient (CLI) | payer OTHER, SELFPAY | END 2025-01-17 15:30 | disposition home or self-care (01) | LOC: WOUND 15:29 | PROVIDERS: PCP Physician Assistant; Visit Provider Nurse Practitioner Family | DX: T86.821 Skin graft (allograft) (autograft) failure (principal); T81.89XA Other complications of procedures, not elsewhere classified, initial encounter; M32.10 Systemic lupus erythematosus, organ or system involvement unspecified | CPT/HCPCS: 15271; C5271; Q4102 ==

== ENCOUNTER 2025-01-24 15:32 | Outpatient (CLI) | payer OTHER, SELFPAY | END 2025-01-24 15:33 | disposition home or self-care (01) | LOC: WOUND 15:32 | PROVIDERS: PCP Physician Assistant; Visit Provider Nurse Practitioner Family | DX: T86.821 Skin graft (allograft) (autograft) failure (principal); I89.0 Lymphedema, not elsewhere classified; L97.822 Non-pressure chronic ulcer of other part of left lower leg with fat layer exposed; M32.10 Systemic lupus erythematosus, organ or system involvement unspecified; T81.89XA Other complications of procedures, not elsewhere classified, initial encounter | CPT/HCPCS: G0463 ==

== ENCOUNTER 2025-01-31 15:36 | Outpatient (CLI) | payer OTHER, SELFPAY | END 2025-01-31 15:37 | disposition home or self-care (01) | LOC: WOUND 15:36 | PROVIDERS: PCP Physician Assistant; Visit Provider Nurse Practitioner Family | DX: T86.821 Skin graft (allograft) (autograft) failure (principal); I89.0 Lymphedema, not elsewhere classified; L97.822 Non-pressure chronic ulcer of other part of left lower leg with fat layer exposed; M32.10 Systemic lupus erythematosus, organ or system involvement unspecified | CPT/HCPCS: 15271; C5271; Q4102 ==

== ENCOUNTER 2025-02-07 15:33 | Outpatient (CLI) | payer OTHER, SELFPAY | END 2025-02-07 15:34 | disposition home or self-care (01) | LOC: WOUND 15:33 | PROVIDERS: PCP Physician Assistant; Visit Provider Nurse Practitioner Family | DX: T86.821 Skin graft (allograft) (autograft) failure (principal); I89.0 Lymphedema, not elsewhere classified; L97.822 Non-pressure chronic ulcer of other part of left lower leg with fat layer exposed; M32.10 Systemic lupus erythematosus, organ or system involvement unspecified | CPT/HCPCS: G0463 ==

== ENCOUNTER 2025-02-14 15:31 | Outpatient (CLI) | payer OTHER, SELFPAY | END 2025-02-14 15:32 | disposition home or self-care (01) | LOC: WOUND 15:32 | PROVIDERS: PCP Physician Assistant; Visit Provider Nurse Practitioner Family | DX: T86.821 Skin graft (allograft) (autograft) failure (principal); I89.0 Lymphedema, not elsewhere classified; L97.822 Non-pressure chronic ulcer of other part of left lower leg with fat layer exposed; M32.10 Systemic lupus erythematosus, organ or system involvement unspecified | CPT/HCPCS: 11042 ==

== ENCOUNTER 2025-02-21 15:27 | Outpatient (CLI) | payer OTHER, SELFPAY | END 2025-02-21 15:28 | disposition home or self-care (01) | PROVIDERS: PCP Physician Assistant; Visit Provider Nurse Practitioner Family | DX: T86.821 Skin graft (allograft) (autograft) failure (principal) ==

== ENCOUNTER 2025-02-28 15:31 | Outpatient (CLI) | payer OTHER, SELFPAY | END 2025-02-28 15:32 | disposition home or self-care (01) | LOC: WOUND 15:31 | PROVIDERS: PCP Physician Assistant; Visit Provider Nurse Practitioner Family | DX: T86.821 Skin graft (allograft) (autograft) failure (principal); I89.0 Lymphedema, not elsewhere classified; L97.829 Non-pressure chronic ulcer of other part of left lower leg with unspecified severity; M32.10 Systemic lupus erythematosus, organ or system involvement unspecified | CPT/HCPCS: 97597 ==

== ENCOUNTER 2025-03-14 15:23 | Outpatient (CLI) | payer OTHER, SELFPAY | END 2025-03-14 15:24 | disposition home or self-care (01) | LOC: WOUND 15:23 | PROVIDERS: PCP Physician Assistant; Visit Provider Nurse Practitioner Family | DX: T86.821 Skin graft (allograft) (autograft) failure (principal); I89.0 Lymphedema, not elsewhere classified; L97.829 Non-pressure chronic ulcer of other part of left lower leg with unspecified severity; M32.10 Systemic lupus erythematosus, organ or system involvement unspecified | CPT/HCPCS: G0463 ==